=== PATIENT | female | born 1940 | race Caucasian/White ===

== ENCOUNTER → 2017-02-01 | Outpatient (CLI) | payer OTHER ==
[~2017-02-01] MED LIST: ATOR10TA82 PO; CLTP PO; DETROL; DIABETES MEDICINE; FOSAMAX; SYNTHROID
[2017-02-01 13:40] LABS: BLOOD UREA NITROGEN 24 mg/dl (7-18); BUN/CREATININE RATIO 29.5 (10-20); CALCIUM 9.4 mg/dl (8.5-10.1); CARBON DIOXIDE 28 mmol/L (21-32); CHLORIDE 105 mmol/L (98-107); CREATININE 0.82 mg/dl (0.60-1.20); GLUCOSE 93 mg/dl (70-99); POTASSIUM 4.2 mmol/L (3.5-5.1); SODIUM 142 mmol/L (136-145)
[2017-02-01 13:41] LABS: ESTIMATED AVERAGE GLUCOSE 126 mg/dl; HA1C FLAG Normal (Normal)
== END | disposition home or self-care (01) ==
LOC: C.LABPVFM 09:15
PROVIDERS: ATTEND Internal Medicine
DX: E78.5 Hyperlipidemia, unspecified (principal); E03.9 Hypothyroidism, unspecified; E11.9 Type 2 diabetes mellitus without complications

== ENCOUNTER → 2017-04-11 | Outpatient (CLI) | payer OTHER ==
--- NOTE | 2017-04-11 14:41 | MAMMOGRAPHY REPORT ---
BILATERAL DIGITAL SCREENING MAMMOGRAM WITH CAD: 04/11/2017 TECHNIQUE: Current study was also evaluated with a Computer Aided Detection (CAD) system. Bilateral CC and MLO views were obtained. COMPARISON: Comparison is made to exams dated: 04/10/2016 mammogram, 04/08/2015 mammogram, 04/07/2014 m ammogram, 04/06/2013 mammogram, 04/04/2012 mammogram, and 04/03/2011 mammogram - [facility]. BREAST COMPOSITION: There are scattered areas of fibroglandular density in both breasts. FINDINGS: No suspicious masses, calcifications, or areas of architectural distortion are noted in ei ther breast. There has been no significant interval change compared to prior exams. Scattered bilater al benign-appearing calcifications are not significantly changed. IMPRESSION: ACR BI-RADS CATEGORY 2: BENIGN There is no mammographic evidence of malignancy. A 1 year screening mammogram is recommended. The pa tient will receive written notification of the results. Approximately 10% of breast cancers are not detected with mammography. A negative mammographic report should not delay biopsy if a clinically suggestive mass is present. Alison Peralta M.D. /:04/11/2017 12:17:25 Hair Spinner: Katherine HANKS)(Fran), [facility] letter sent: Normal 1/2 BI-RADS Code: ACR BI-RADS Category 2: Benign
== END | disposition home or self-care (01) ==
LOC: C.MAMM 09:33
PROVIDERS: ATTEND Internal Medicine
DX: Z12.31 Encounter for screening mammogram for malignant neoplasm of breast (principal)

== ENCOUNTER → 2017-07-29 | Outpatient (CLI) | payer OTHER ==
[~2017-07-29] MED LIST changes: -ATOR10TA82 PO; +ATOR10TA88 PO
[2017-07-29 12:52] LABS: BLOOD UREA NITROGEN 19 mg/dl (7-18); BUN/CREATININE RATIO 24.2 (10-20); CALCIUM 9.2 mg/dl (8.5-10.1); CARBON DIOXIDE 30 mmol/L (21-32); CHLORIDE 103 mmol/L (98-107); CREATININE 0.79 mg/dl (0.60-1.20); GLUCOSE 97 mg/dl (70-99); POTASSIUM 4.2 mmol/L (3.5-5.1); SODIUM 140 mmol/L (136-145)
== END | disposition home or self-care (01) ==
LOC: C.LABPVFM 08:04
PROVIDERS: ATTEND Internal Medicine
DX: E03.9 Hypothyroidism, unspecified (principal); E11.9 Type 2 diabetes mellitus without complications; I10 Essential (primary) hypertension

== ENCOUNTER → 2017-08-08 | Outpatient (CLI) | payer OTHER ==
--- NOTE | 2017-08-08 09:04 | DIAGNOSTIC IMAGING REPORT ---
RIGHT KNEE 2 VIEWS HISTORY: Right knee pain. COMPARISON: None. FINDINGS: There is no fracture or dislocation. Soft tissues are unremarkable. No radiopaque foreign bodies. No knee effusion. Mild tricompartmental osteoarthritis demonstrated by cartilage space narrowing and small marginal osteophytes. IMPRESSION: No fractures. Mild tricompartmental osteoarthritis. Electronically signed by: Ibrahima Clements M.D. 08/08/2017 9:03 AM Dictated Date/Time: 08/08/2017 9:01 AM
== END | disposition home or self-care (01) ==
LOC: C.RAD1850 08:37
PROVIDERS: ATTEND Internal Medicine
DX: M17.11 Unilateral primary osteoarthritis, right knee (principal); M25.569 Pain in unspecified knee

== ENCOUNTER → 2018-01-28 | Outpatient (CLI) | payer OTHER ==
[~2018-01-28] MED LIST changes: +ATOR10TA82 PO; -ATOR10TA88 PO
[2018-01-28 13:42] LABS: ALT/SGPT 34 U/L (12-78); AST/SGOT 26 U/L (15-37); BLOOD UREA NITROGEN 25 mg/dl (7-18); CALCIUM 9.8 mg/dl (8.5-10.1); CARBON DIOXIDE 30 mmol/L (21-32); CREATININE 0.79 mg/dl (0.60-1.20); GLUCOSE 89 mg/dl (70-99); POTASSIUM 4.2 mmol/L (3.5-5.1); SODIUM 139 mmol/L (136-145)
[2018-01-28 13:52] LABS: CHOLESTEROL 153 mg/dl (0-200); LDL CHOLESTEROL CALCULATED 83 mg/dl
[2018-01-28 15:09] LABS: CREATININE RANDOM URINE 33.1 mg/dl
[2018-01-29 05:40] LABS: HEMOGLOBIN A1C 6.1 % (4.5-5.6)
== END | disposition home or self-care (01) ==
LOC: C.LABPVFM 07:36
PROVIDERS: ATTEND Internal Medicine
DX: E03.9 Hypothyroidism, unspecified (principal); E78.5 Hyperlipidemia, unspecified; E11.9 Type 2 diabetes mellitus without complications

== ENCOUNTER 2019-11-25 18:15 | Inpatient (IN) ==
--- NOTE | 2019-11-25 18:39 | Emergency Department Note ---
Entered by Brandie Rea acting as a scribe for History of Present Illness General Chief complaint: Shortness of Breath/Dyspnea Stated complaint: SOB,CHEST PAIN Time Seen by Provider: 11/25/19 18:19 Source: patient and family History of Present Illness Onset (ago): month(s) (few months) Location: chest Quality: + other (SOB) Exacerbated By: + movement Associated symptoms: + shortness of breath and + other (Positive dyspenia on exertion, leg heaviness) The patient is a 79 year old female who presents to the ED with complaints of SOB beginning a few months ago. She is accompanied by her son who states the patient has been checking her O2 levels with her 's machine and they have been low recently. Her son states simply getting up to answer the phone causes the patient to become dyspenic. Her son notes the patient has been complaining o f leg heaviness recently. The patient notes she has an intermittent cough. She follows with Dr. Rushing, Internal Medicine. Home Medications Home Medications Medication Instructions Recorded Confirmed Type aspirin [Aspir-81] 81 mg PO DAILY 12/22/18 11/26/19 History calcium carbonate-vitamin D3 1 tab PO BID 12/22/18 11/26/19 History [Caltrate 600 + D] metformin 500 mg PO BIDM 12/22/18 11/26/19 History omega 2-cwv-gqp-fish oil [Fish Oil] 3,000 mg PO DAILY 12/22/18 11/26/19 History omeprazole 20 mg PO DAILY 12/22/18 11/26/19 History ibuprofen 800 mg tablet 800 mg PO UD PRN tab 06/11/19 11/26/19 History levothyroxine 75 mcg tablet 75 mcg PO DAILY #90 tab 10/22/19 11/26/19 Rx Allergies Allergy/AdvReac Type Severity Reaction Status Date / Time adhesive Allergy Mild SKIN Verified 11/26/19 00:23 IRRITATION KINJAL Inhibitors Allergy Unknown LISTED ON Verified 11/26/19 00:23 MNPG Penicillins Allergy Unknown CAN'T Verified 11/26/19 00:23 REMEMBER Past Med/Surg History Medical History Aortic stenosis (Acute) Benign essential hypertension (Acute) Generalized osteoarthritis of multiple sites (Acute) Hyperlipidemia (Acute) Hypothyroidism (Acute) No pertinent past medical history 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 (Acute) Type 2 diabetes mellitus (Acute) Surgical History History of tubal ligation Family History Father Dementia Mother Lung cancer Grandmother Heart disease Other Family history non-contributory Social History Preferred Language: Uzbek Communication Ability: Effective Fiber Optic Technician Required: No Beliefs That Will Affect Care: None marital status: Current Living Situation: Spouse Current Living Situation Comment: house Other Information That Helps Us Care for You: No Feels Safe at Home: Yes Safety Concerns: Feels Safe At This Time Smoking Status: Never smoker Do You Dip or Chew Tobacco: No ; Second Hand Exposure: Yes ( smoked) ; Tobacco Cessation Education Requested by Patient: No Hx Alcohol Use: No Hx Substance Use: No Seatbelt Use: always Review of Systems See HPI for pertinent positives & negatives. and A total of 10 systems reviewed and were otherwise negative Physical Exam Vital Signs Vital Signs - 24 hr 11/25/19 18:24 11/25/19 18:26 11/25/19 18:28 Temperature 36.5 C Temperature Source Oral Pulse Rate 90 90 88 Pulse Rate [Apical] Pulse Rate from SpO2 Sensor 95 H 92 H Pulse Rhythm [Apical] Pulse Strength [Apical] Respiratory Rate 21 25 H Respiratory Effort / Characteristics Respiratory Depth Respiratory Pattern Blood Pressure 169/124 H 169/124 H Blood Pressure [Left Arm] Blood Pressure Mean 139 139 Blood Pressure Mean [Left Arm] Blood Pressure Position Lying Blood Pressure Position [Left Arm] Pulse Oximetry 92 75 L 94 Oxygen Delivery Method Room Air Oxygen Flow Rate Fraction of Inspired Oxygen Sepsis Recent Fever Within 48 Hours No Sepsis New/Unexplained Change in Mental Status No Sepsis Action Taken by Nursing No Action Required 11/25/19 18:30 11/25/19 18:40 11/25/19 18:50 Temperature Temperature Source Pulse Rate 95 H 103 H 93 H Pulse Rate [Apical] Pulse Rate from SpO2 Sensor 99 H 102 H 88 Pulse Rhythm [Apical] Pulse Strength [Apical] Respiratory Rate 24 15 24 Respiratory Effort / Characteristics Respiratory Depth Respiratory Pattern Blood Pressure Blood Pressure [Left Arm] Blood Pressure Mean Blood Pressure Mean [Left Arm] Blood Pressure Position Blood Pressure Position [Left Arm] Pulse Oximetry 96 98 98 Oxygen Delivery Method Nasal Cannula Oxygen Flow Rate 4 Fraction of Inspired Oxygen Sepsis Recent Fever Within 48 Hours Sepsis New/Unexplained Change in Mental Status Sepsis Action Taken by Nursing 11/25/19 19:00 11/25/19 19:10 11/25/19 19:13 Temperature Temperature Source Pulse Rate 92 H 75 93 H Pulse Rate [Apical] Pulse Rate from SpO2 Sensor 89 86 90 Pulse Rhythm [Apical] Pulse Strength [Apical] Respiratory Rate 17 15 21 Respiratory Effort / Characteristics Respiratory Depth Respiratory Pattern Blood Pressure 134/86 Blood Pressure [Left Arm] Blood Pressure Mean 111 Blood Pressure Mean [Left Arm] Blood Pressure Position Blood Pressure Position [Left Arm] Pulse Oximetry 98 97 97 Oxygen Delivery Method Oxygen Flow Rate Fraction of Inspired Oxygen Sepsis Recent Fever Within 48 Hours Sepsis New/Unexplained Change in Mental Status Sepsis Action Taken by Nursing 11/25/19 19:15 11/25/19 19:20 11/25/19 19:30 Temperature Temperature Source Pulse Rate Pulse Rate [Apical] 80 Pulse Rate from SpO2 Sensor 108 H Pulse Rhythm [Apical] Pulse Strength [Apical] Respiratory Rate 18 20 20 Respiratory Effort / Characteristics Respiratory Depth Respiratory Pattern Blood Pressure 148/65 H Blood Pressure [Left Arm] 134/86 Blood Pressure Mean 92 Blood Pressure Mean [Left Arm] 102 Blood Pressure Position Blood Pressure Position [Left Arm] Pulse Oximetry 97 97 Oxygen Delivery Method Nasal Cannula Oxygen Flow Rate 4 Fraction of Inspired Oxygen Sepsis Recent Fever Within 48 Hours Sepsis New/Unexplained Change in Mental Status Sepsis Action Taken by Nursing 11/25/19 19:40 11/25/19 19:50 11/25/19 20:00 Temperature Temperature Source Pulse Rate 89 Pulse Rate [Apical] Pulse Rate from SpO2 Sensor 90 89 Pulse Rhythm [Apical] Pulse Strength [Apical] Respiratory Rate 12 21 Respiratory Effort / Characteristics Respiratory Depth Respiratory Pattern Blood Pressure 137/83 Blood Pressure [Left Arm] Blood Pressure Mean 92 Blood Pressure Mean [Left Arm] Blood Pressure Position Blood Pressure Position [Left Arm] Pulse Oximetry 96 98 Oxygen Delivery Method Oxygen Flow Rate Fraction of Inspired Oxygen Sepsis Recent Fever Within 48 Hours Sepsis New/Unexplained Change in Mental Status Sepsis Action Taken by Nursing 11/25/19 20:10 11/25/19 20:20 11/25/19 20:30 Temperature Temperature Source Pulse Rate 85 98 H 87 Pulse Rate [Apical] Pulse Rate from SpO2 Sensor 85 94 H Pulse Rhythm [Apical] Pulse Strength [Apical] Respiratory Rate 19 26 H 21 Respiratory Effort / Characteristics Respiratory Depth Respiratory Pattern Blood Pressure 153/72 H Blood Pressure [Left Arm] Blood Pressure Mean 102 Blood Pressure Mean [Left Arm] Blood Pressure Position Blood Pressure Position [Left Arm] Pulse Oximetry 97 100 Oxygen Delivery Method Oxygen Flow Rate Fraction of Inspired Oxygen Sepsis Recent Fever Within 48 Hours Sepsis New/Unexplained Change in Mental Status Sepsis Action Taken by Nursing 11/25/19 20:40 11/25/19 20:50 11/25/19 21:24 Temperature Temperature Source Pulse Rate 99 H 83 Pulse Rate [Apical] 97 H Pulse Rate from SpO2 Sensor 99 H 88 Pulse Rhythm [Apical] Pulse Strength [Apical] Respiratory Rate 22 20 20 Respiratory Effort / Characteristics Respiratory Depth Respiratory Pattern Blood Pressure Blood Pressure [Left Arm] 153/74 H Blood Pressure Mean Blood Pressure Mean [Left Arm] 100 Blood Pressure Position Blood Pressure Position [Left Arm] Pulse Oximetry 99 97 97 Oxygen Delivery Method Nasal Cannula Oxygen Flow Rate 2 Fraction of Inspired Oxygen Sepsis Recent Fever Within 48 Hours Sepsis New/Unexplained Change in Mental Status Sepsis Action Taken by Nursing 11/25/19 22:19 11/25/19 22:30 11/25/19 23:47 Temperature Temperature Source Pulse Rate Pulse Rate [Apical] 86 86 86 Pulse Rate from SpO2 Sensor Pulse Rhythm [Apical] Regular Pulse Strength [Apical] Normal Respiratory Rate 18 24 Respiratory Effort / Characteristics Non-Labored Spontaneous Non-Labored Spontaneous Respiratory Depth Normal Respiratory Pattern Regular Blood Pressure Blood Pressure [Left Arm] 150/70 H 129/87 Blood Pressure Mean Blood Pressure Mean [Left Arm] 96 101 Blood Pressure Position Blood Pressure Position [Left Arm] Lying Pulse Oximetry 95 95 Oxygen Delivery Method Nasal Cannula Nasal Cannula Room Air Oxygen Flow Rate 3 4 Fraction of Inspired Oxygen 97 Sepsis Recent Fever Within 48 Hours Sepsis New/Unexplained Change in Mental Status Sepsis Action Taken by Nursing GENERAL: The patient is awake and alert. She is somewhat anxious appearing. EYES: The conjunctivae are clear. The pupils are round and reactive. EARS, NOSE, MOUTH AND THROAT: The nose is without any evidence of any deformity. Mucous membranes are moist. Tongue is midline. NECK: The neck is nontender and supple. RESPIRATORY: Diminished breath sounds are noted throughout. There are rales noted in all lung lang. Breathing is very shallow. CARDIOVASCULAR: Regular rate and rhythm was noted to auscultation. There was a systolic murmur noted. GASTROINTESTINAL: The abdomen is soft. Abdomen is nontender. MUSCULOSKELETAL/EXTREMITIES: There is no evidence of gross deformity full range of motion is noted in the hips and shoulders. SKIN: Trace pedal edema was noted bilaterally NEUROLOGIC: Patient is awake alert and oriented x3. Course Course 1824: Past medical records reviewed. The patient was evaluated in room B3. A complete history and physical exam was performed. [id number]: Discussed the patient's case with Dr. Connors, [facility] Hospitalist. The patient will be evaluated for further management. Administered Medications Aspirin (Ecotrin Ectab) 81 mg PO DAILY SAY Stop: 12/26/19 08:59 Last Admin: 11/26/19 07:33 Dose: 81 mg Documented by: [id number] Enoxaparin Sodium (Lovenox) 40 mg SQ Q24H SAY Stop: 12/26/19 08:59 Last Admin: 11/26/19 07:32 Dose: 40 mg Documented by: [id number] Furosemide 40 mg/ Syringe 4 mls @ 4 mls/min IV [id number] SAY Stop: 12/26/19 11:29 Last Admin: 11/26/19 16:56 Dose: 4 mls/min Documented by: [id number] Admin: 11/26/19 12:17 Dose: 4 mls/min Documented by: [id number] Insulin Aspart (Novolog Flexpen) 0 units SC ACHS SAY Stop: 12/26/19 07:29 Last Admin: 11/26/19 16:55 Dose: Not Given Documented by: [id number] Admin: 11/26/19 12:13 Dose: Not Given Documented by: [id number] Cosigned by: [id number] Admin: 11/26/19 07:53 Dose: Not Given Documented by: [id number] Cosigned by: [id number] Levothyroxine Sodium (Synthroid) 75 mcg PO DAILYBB SAY Stop: 12/26/19 06:29 Last Admin: 11/26/19 07:33 Dose: 75 mcg Documented by: [id number] Miscellaneous (Order Awaiting Action) 1 ea N/A QS SAY Stop: 12/26/19 07:59 Last Admin: 11/26/19 16:08 Dose: Not Given Documented by: [id number] Admin: 11/26/19 07:33 Dose: Not Given Documented by: [id number] Multivitamins/Minerals (Caltrate Plus) 1 tab PO BID SAY Stop: 12/26/19 08:59 Last Admin: 11/26/19 07:33 Dose: 1 tab Documented by: [id number] Pantoprazole Sodium (Protonix) 40 mg PO DAILY SAY Stop: 12/26/19 08:59 Last Admin: 11/26/19 07:33 Dose: 40 mg Documented by: [id number] Pravastatin Sodium (Pravachol) 20 mg PO DAILY SAY Stop: 12/26/19 08:59 Last Admin: 11/26/19 07:33 Dose: 20 mg Documented by: [id number] Discontinued Medications Acetaminophen (Tylenol) 1,000 mg PO NOW STA Stop: 11/25/19 23:51 Last Admin: 11/25/19 23:58 Dose: 1,000 mg Documented by: [id number] Albuterol (Duoneb) 3 ml NEB NOW STA Stop: 11/25/19 22:00 Last Admin: 11/25/19 22:18 Dose: 3 ml Documented by: [id number] Furosemide (Lasix) 40 mg IV NOW STA Stop: 11/25/19 22:00 Last Admin: 11/25/19 22:15 Dose: 40 mg Documented by: [id number] Ioversol (Optiray 320 125ml) 116 ml IV ONCE PRN PRN Reason: Interaction Checking Stop: 11/29/19 21:11 Last Admin: 11/25/19 21:13 Dose: 116 ml Documented by: [id number] Medical Decision Making Differential Diagnosis Differential diagnosis: Etiologies such as infections, reactive airway disease, pneumonia, pneumothorax, COPD, CHF, cardiac ischemia, pulmonary embolism, musculoskeletal, gastrointestinal, as well as others were entertained. Medical Records Attestation: I reviewed the patient's medical records. Home Medications Current Medication List: was personally reviewed by me Laboratory Data Attestation: I reviewed the patient's lab results. Result diagrams: 11/26/19 01:49 11/26/19 01:49 Lab Results 11/25/19 11/25/19 11/25/19 Range/Units 18:42 18:42 18:42 WBC 9.56 (4.8-10.8) K/uL RBC 4.15 L (4.2-5.4) M/uL Hgb 12.1 (12.0-16.0) g/dL Hct 40.1 (37-47) % MCV 96.6 (80-100) fL MCH 29.2 (25-34) pg MCHC 30.2 L (32-36) g/dL RDW Std Deviation 55.0 H (36.4-46.3) fL RDW Coeff of [place] 15.6 H (11.5-14.5) % Plt Count 383 (130-400) K/uL MPV 9.1 (7.4-10.4) fL Immature Gran % (Auto) 0.3 % Neut % (Auto) 65.8 % Lymph % (Auto) 19.9 % [place] % (Auto) 8.6 % Eos % (Auto) 5.0 % Baso % (Auto) 0.4 % Immature Gran # (Auto) 0.03 H (0.00-0.02) K/uL Neut # (Auto) 6.29 (1.4-6.5) K/uL Lymph # (Auto) 1.90 (1.2-3.4) K/uL [place] # (Auto) 0.82 H (0.11-0.59) K/uL Eos # (Auto) 0.48 (0-0.5) K/uL Baso # (Auto) 0.04 (0-0.2) K/uL PT 10.8 (9.0-12.0) Seconds INR 1.1 (0.9-1.1) APTT 25.8 (21.0-31.0) Seconds PTT Ratio 1.0 VBG pH (7.36-7.41) VBG pCO2 (38-50) mmHg VBG pO2 mmHg VBG HCO3 mmol/L VBG O2 Saturation % VBG Base Excess mEq/L Barometric Pressure mm/Hg Sodium 139 (136-145) mmol/L Potassium 4.1 (3.5-5.1) mmol/L Chloride 103 (98-107) mmol/L Carbon Dioxide 31 (21-32) mmol/L Anion Gap 5.0 (3-11) BUN 26 H (7-18) mg/dl Creatinine 1.01 (0.6-1.2) mg/dl Est Cr Clr Drug Dosing 42.2 ml/min Est GFR ( Amer) 61.3 Est GFR (Non-Af Amer) 52.9 BUN/Creatinine Ratio 26.2 H (10-20) Glucose 100 H (70-99) mg/dl Calcium 9.1 (8.5-10.1) mg/dl Magnesium 2.2 (1.8-2.4) mg/dl Total Bilirubin 0.4 (0.2-1) mg/dl AST 19 (15-37) U/L ALT 31 (12-78) U/L Alkaline Phosphatase 58 (45-117) U/L Troponin I 0.015 (0-0.045) ng/ml NT-Pro-B Natriuret Pep 2131 H (0-1800) pg/ml Total Protein 7.0 (6.4-8.2) gm/dl Albumin 3.5 (3.4-5.0) gm/dl Globulin 3.5 (2.5-4.0) gm/dl Albumin/Globulin Ratio 1.0 (0.9-2) Urine Color Urine Appearance (Clear) Urine pH (4.5-7.5) Ur Specific [place] (1.000-1.030) Urine Protein (Negative) Urine Glucose (UA) (Negative) Urine Ketones (Negative) Urine Blood (Negative) Urine Nitrite (Negative) Urine Bilirubin (Negative) Urine Urobilinogen (Negative) Ur Leukocyte Esterase (Negative) Urine WBC (Auto) (0-5) /hpf Urine RBC (Auto) (0-4) /hpf U Hyaline Cast (Auto) (0-5) /lpf U Epithel Cells (Auto) (0-5) /lpf Urine Bacteria (Auto) (Negative) 11/25/19 11/25/19 Range/Units 18:42 19:35 WBC (4.8-10.8) K/uL RBC (4.2-5.4) M/uL Hgb (12.0-16.0) g/dL Hct (37-47) % MCV (80-100) fL MCH (25-34) pg MCHC (32-36) g/dL RDW Std Deviation (36.4-46.3) fL RDW Coeff of [place] (11.5-14.5) % Plt Count (130-400) K/uL MPV (7.4-10.4) fL Immature Gran % (Auto) % Neut % (Auto) % Lymph % (Auto) % [place] % (Auto) % Eos % (Auto) % Baso % (Auto) % Immature Gran # (Auto) (0.00-0.02) K/uL Neut # (Auto) (1.4-6.5) K/uL Lymph # (Auto) (1.2-3.4) K/uL [place] # (Auto) (0.11-0.59) K/uL Eos # (Auto) (0-0.5) K/uL Baso # (Auto) (0-0.2) K/uL PT (9.0-12.0) Seconds INR (0.9-1.1) APTT (21.0-31.0) Seconds PTT Ratio VBG pH 7.35 L (7.36-7.41) VBG pCO2 60 H (38-50) mmHg VBG pO2 51 mmHg VBG HCO3 32 mmol/L VBG O2 Saturation 81.8 % VBG Base Excess 5.3 mEq/L Barometric Pressure 735.0 mm/Hg Sodium (136-145) mmol/L Potassium (3.5-5.1) mmol/L Chloride (98-107) mmol/L Carbon Dioxide (21-32) mmol/L Anion Gap (3-11) BUN (7-18) mg/dl Creatinine (0.6-1.2) mg/dl Est Cr Clr Drug Dosing ml/min Est GFR ( Amer) Est GFR (Non-Af Amer) BUN/Creatinine Ratio (10-20) Glucose (70-99) mg/dl Calcium (8.5-10.1) mg/dl Magnesium (1.8-2.4) mg/dl Total Bilirubin (0.2-1) mg/dl AST (15-37) U/L ALT (12-78) U/L Alkaline Phosphatase (45-117) U/L Troponin I (0-0.045) ng/ml NT-Pro-B Natriuret Pep (0-1800) pg/ml Total Protein (6.4-8.2) gm/dl Albumin (3.4-5.0) gm/dl Globulin (2.5-4.0) gm/dl Albumin/Globulin Ratio (0.9-2) Urine Color Yellow Urine Appearance Clear (Clear) Urine pH 6.0 (4.5-7.5) Ur Specific [place] 1.009 (1.000-1.030) Urine Protein Negative (Negative) Urine Glucose (UA) Negative (Negative) Urine Ketones Negative (Negative) Urine Blood Negative (Negative) Urine Nitrite Negative (Negative) Urine Bilirubin Negative (Negative) Urine Urobilinogen Negative (Negative) Ur Leukocyte Esterase 1+ H (Negative) Urine WBC (Auto) 1-5 (0-5) /hpf Urine RBC (Auto) 0-4 (0-4) /hpf U Hyaline Cast (Auto) 1-5 (0-5) /lpf U Epithel Cells (Auto) >30 H (0-5) /lpf Urine Bacteria (Auto) Negative (Negative) Imaging Data Radiologist's Impression: Radiology results as stated below per my review and the radiologist's interpretation: CHEST CTA for PULMONARY ARTERIES CT DOSE: 499.24 mGycm HISTORY: Dyspnea. TECHNIQUE: Multiaxial CT images of the chest were performed following the intravenous administration of contrast to evaluate the pulmonary arteries. Maximal intensity projection images were also obtained. A dose lowering technique was utilized adhering to the principles of ALARA. COMPARISON STUDY: None. FINDINGS: The heart is borderline enlarged. No pleural or pericardial effusions. Normal caliber thoracic aorta with no evidence for dissection. No filling defects within the pulmonary arteries to suggest pulmonary embolus. Punctate calcified granuloma within the right hepatic lobe. The visualized spleen is unremarkable. Normal esophagus. No suspicious lytic or blastic osseous lesions. No pneumothorax. The central airways are patent. Mild interlobular septal thickening within the right upper lobe. This suggests mild asymmetric congestive change. There is a mosaic attenuation seen throughout the lungs consistent with air trapping. This can be seen in the setting of small airways disease. A few linear densities at the lung bases consistent with subsegmental atelectasis. Mild mediastinal and bilateral hilar lymphadenopathy. Dominant right paratracheal lymph node measures 1.6 x 1.0 cm. IMPRESSION: 1. No evidence for pulmonary embolus. 2. Mild interlobular septal thickening within the right upper lobe. This suggests mild asymmetric congestive change. 3. Mild mediastinal and bilateral hilar lymphadenopathy. This is nonspecific. 4. Mosaic attenuation seen throughout the lungs consistent with air trapping. This can be seen in the setting of small airways disease. 5. The heart is borderline enlarged. ACT 112: Negative or not required by law. Electronically signed by: Ibrahima Clements M.D. 11/25/2019 9:48 PM XR chest 1V portable HISTORY: Dyspnea COMPARISON: Chest 09/14/2019. FINDINGS: No pneumothorax. No pleural effusions. The heart remains mildly enlarged. There is diffuse interstitial vascular thickening consistent with mild congestive change. This is similar to the prior study. No new focal lung consolidations to suggest pneumonia. Calcifications within the aortic knob. IMPRESSION: Cardiomegaly with mild congestive change. ACT 112: Negative or not required by law. Electronically signed by: Ibrahima Clements M.D. 11/25/2019 7:50 PM ECG Data Attestation: I personally reviewed and interpreted this ECG as follows: Indication: + SOB/dyspnea Rate (beats per minute): 93 Rhythm: + sinus rhythm ECG ST segments: + ST depression (Lateral) ECG Findings: + Q waves (Inferior) and + PVCs (frequent) Comparison ECG Date: from (06/20/01) Change: the following changes noted (Changes are new) Blood Pressure Blood Pressure Findings: Elevated blood pressure Blood Pressure Disposition: further management by hospitalist MDM Narrative The patient is a 79-year-old female who presented to the emergency department for an evaluation of difficulty breathing. The patient was found to have significant dyspnea on exertion as well as hypoxia. Initially her physical exam appear to be consistent with some volume overload but her chest x-ray was not as impressive as her physical exam. For this reason CT the chest was obtained to rule out pulmonary venous thromboembolic disease. The patient was treated with Lasix in the emergency department. I discussed the patient's laboratory and radiographic studies with her and her family members. She was feeling somewhat improved but still had an oxygen requirement. For this reason I discussed her case with the on-call [facility] hospitalist group. They have agreed to evaluate the patient in the emergency department for further management and disposition. Impression & Plan Pulmonary edema, SOB (shortness of breath), Hypoxia, Respiratory acidosis Discharge Plan Visit Data *Final* Discharge Date/Time: 11/26/19 00:52 Chief Complaint: Shortness of Breath/Dyspnea Stated Complaint: SOB,CHEST PAIN ED Provider: Pasha Romano Discharge Problem: Pulmonary edema, SOB (shortness of breath), Hypoxia, Respiratory acidosis Patient Disposition: Admitted As Inpatient Discharge Instructions Interventions: ED Discharge Assessment Last Done: 11/26/19 00:52 Discharge Problem: Pulmonary edema Qualifiers: Chronicity: acute Qualified Code(s): J81.0 - Acute pulmonary edema The scribe's documentation has been prepared under my direction and personally reviewed by me in its entirety. I confirm that the note above accurately reflects all work, treatment, procedures, and medical decision making performed by me.
[2019-11-25 18:55] LABS: Basophils # (auto) 0.04 K/uL (0-0.2); Basophils % (auto) 0.4 %; Eosinophils # (auto) 0.48 K/uL (0-0.5); Hematocrit (blood only) 40.1 % (37-47); Hemoglobin 12.1 g/dL (12.0-16.0); Immature Granulocytes # (auto) 0.03 K/uL (0.00-0.02); Immature Granulocytes % (auto) 0.3 %; Lymphocytes % (auto) 19.9 %; Mean Corpuscular Hemoglobin 29.2 pg (25-34); Mean Corpuscular Hgb Conc 30.2 g/dL (32-36); Mean Corpuscular Volume 96.6 fL (80-100); Mean Platelet Volume 9.1 fL (7.4-10.4); Monocytes # (auto) 0.82 K/uL (0.11-0.59); Monocytes % (auto) 8.6 %; Neutrophils # (auto) 6.29 K/uL (1.4-6.5); Neutrophils % (auto) 65.8 %; Platelet Count 383 K/uL (130-400); RDW Coefficient of Variation 15.6 % (11.5-14.5); Red Blood Count 4.15 M/uL (4.2-5.4); White Blood Count 9.56 K/uL (4.8-10.8)
[2019-11-25 18:59] LABS: Base Excess VBG 5.3 mEq/L; Oxygen Saturation VBG 81.8 %; pH VBG 7.35 (7.36-7.41)
[2019-11-25 19:04] LABS: INR 1.1 (0.9-1.1); Partial Thromboplastin Time 25.8 Seconds (21.0-31.0); Prothrombin Time 10.8 Seconds (9.0-12.0)
[2019-11-25 19:12] LABS: Albumin Level 3.5 gm/dl (3.4-5.0); BUN Creatinine Ratio 26.2 (10-20); Calcium 9.1 mg/dl (8.5-10.1); Creatinine Clr Calc Pharmacy 42.2 ml/min; Est GFR (African American) 61.3; Est GFR (Non-African American) 52.9; Magnesium 2.2 mg/dl (1.8-2.4); Potassium 4.1 mmol/L (3.5-5.1)
[2019-11-25 19:17] LABS: Bilirubin,Total 0.4 mg/dl (0.2-1); Globulin 3.5 gm/dl (2.5-4.0); Troponin I 0.015 ng/ml (0-0.045)
--- NOTE | 2019-11-25 19:51 | XRay Report ---
XR chest 1V portable HISTORY: Dyspnea COMPARISON: Chest 09/14/2019. FINDINGS: No pneumothorax. No pleural effusions. The heart remains mildly enlarged. There is diffuse interstitial vascular thickening consistent with mild congestive change. This is similar to the prior study. No new focal lung consolidations to suggest pneumonia. Calcifications within the aortic knob. IMPRESSION: Cardiomegaly with mild congestive change. ACT 112: Negative or not required by law. Electronically signed by: Ibrahima Clements M.D. 11/25/2019 7:50 PM
[2019-11-25 20:04] LABS: Appearance Urine Clear (Clear); Bacteria Urine Automated Negative (Negative); Bilirubin Urine Negative (Negative); Blood Urine Negative (Negative); Color Urine Yellow; Epithelial Cell Urine Auto >30 /lpf (0-5); Glucose Urine UA Negative (Negative); Ketones Urine Negative (Negative); Leukocyte Esterase Urine 1+ (Negative); Nitrite Urine Negative (Negative); Protein Urine Negative (Negative); RBC Urine Automated 0-4 /hpf (0-4); Specific Gravity Urine 1.009 (1.000-1.030); Urobilinogen Urine Negative (Negative)
[2019-11-25] MEDS ORDERED: OPTIRAY 320 125ml IV PRN (21:12)
--- NOTE | 2019-11-25 21:50 | CT Scan Report ---
CHEST CTA for PULMONARY ARTERIES CT DOSE: 499.24 mGycm HISTORY: Dyspnea. TECHNIQUE: Multiaxial CT images of the chest were performed following the intravenous administration of contrast to evaluate the pulmonary arteries. Maximal intensity projection images were also obtaine d. A dose lowering technique was utilized adhering to the principles of ALARA. COMPARISON STUDY: None. FINDINGS: The heart is borderline enlarged. No pleural or pericardial effusions. Normal caliber thora cic aorta with no evidence for dissection. No filling defects within the pulmonary arteries to sugges t pulmonary embolus. Punctate calcified granuloma within the right hepatic lobe. The visualized splee n is unremarkable. Normal esophagus. No suspicious lytic or blastic osseous lesions. No pneumothorax. The central airways are patent. Mild interlobular septal thickening within the right upper lobe. Thi s suggests mild asymmetric congestive change. There is a mosaic attenuation seen throughout the lungs consistent with air trapping. This can be seen in the setting of small airways disease. A few linear densities at the lung bases consistent with subsegmental atelectasis. Mild mediastinal and bilateral hilar lymphadenopathy. Dominant right paratracheal lymph node measures 1.6 x 1.0 cm. IMPRESSION: 1. No evidence for pulmonary embolus. 2. Mild interlobular septal thickening within the right upper lobe. This suggests mild asymmetric con gestive change. 3. Mild mediastinal and bilateral hilar lymphadenopathy. This is nonspecific. 4. Mosaic attenuation seen throughout the lungs consistent with air trapping. This can be seen in the setting of small airways disease. 5. The heart is borderline enlarged. ACT 112: Negative or not required by law. Electronically signed by: Ibrahima Clements M.D. 11/25/2019 9:48 PM
[2019-11-25] MEDS ORDERED: FUROSEMIDE 40 MG/4 ML VIAL IV STA (21:59)
[2019-11-25] MEDS ORDERED: ALBUT/IPRATROP 3MG/0.5MG NEB 3 ML VIAL NEB STA (21:59)
[2019-11-25] MEDS ORDERED: ACETAMINOPHEN 500 MG TAB PO STA (23:50)
--- NOTE | 2019-11-25 23:54 | History & Physical Report ---
Date of Service November 25, 2019 Assessment & Plan (1) Hypoxia: Shakira Delgado is a pleasant 79 y/o female with past medical hx of mod-severe aortic stenosis, HLD, HTN, DM2, Hypothryoid, GERD who presented from her PCP appointment for Hypoxia with values at 85%, also having central chest pressure with exertion and dyspnea worsened with exertion. - Suspect related to severe aortic stenosis and a diet over recommended daily value of sodium; fixed cardiac output causing worsening of symptoms with exertion - Improved with supplemental O2 and with Lasix 40mg IV x1 in ED - Monitor I&O - No indication for further need for Lasix overnight, will most likely benefit from dosage tomorrow - Weight appears up from baseline about 4kg this past month - CXR showing cardiomegaly and Mild congestive change; CTA negative for PE - Follows with Dr. Pollard Cards [facility]; consult placed to group - Echo performed on 08/08/2019: 1. Normal LV size, mod concentric LVH; 2. LVEF 60-65%, no regional wall montion abnormalities; Grade I diasotlic dysfunction; 3. Normal RV size/funtion. 4. Moderate to severe aortic stenosis (PV 4.1, MG 37, CHELA 0.98, DI 0.38). 5. Mild aortic regurg. 6. Compared with prior 11/13/2017 slight progression in aortic stenosis - Echo ordered for AM - Trend trops - cardiac monitor technician - monitor vitals Code: Full Code FENGI: Heart healthy, Low Sodium, DM2 diet DVT ppx: Lovenox 40mg Subq q24 Admit: Med surg tele (2) SOB (shortness of breath): as above (3) Aortic stenosis: as above (4) Benign essential hypertension: Continue with home Candesartan 16mg PO daily (5) Hyperlipidemia: continue with home Pravastatin 20mg qday (6) Hypothyroidism: continue with home synthroid 75 mcg PO daily (7) Osteopenia: continue with home vitamin D (8) Type 2 diabetes mellitus: Hold metformin since received contrast from CTA Will order Novolog SS (9) DVT prophylaxis: Lovenox 40mg subq 24h History of Present Illness Chief Complaint: Hypoxia Primary Care Provider: Pasha Rushing MD Shakira Delgado is a pleasant 79 y/o female with past medical hx of mod-severe aortic stenosis, HLD, HTN, DM2, Hypothryoid, GERD who presented from her PCP appointment for Hypoxia. She notes several months of worsening dyspnea that is worsened with exertion. She notes getting dyspneic with walking to get mail or even going from her kitchen to her living room. She sleeps on one pillow, doesn't monitor salt intake but notes she doesn't add salt to meals, denies LE edema or increase in abdomen size, but notes maybe some increase in weight gain. She states that she gets central chest pressure only with exertion for the past couple months as well. Here in the ED she had a CXR that showed pulmonary congestion and had a CTA which ruled out PE. She did receive Lasix 40mg IV x1 here in ED and notes feeling better now; family notes her facial color has improved to baseline. She is currently on 3L NC and doesn't require any supplemental O2 at baseline. She notes that she also has a frontal headache and thought she had sinusitis. She was treated for sinusitis beginning of this month with abx and steroids which didn't seem to help significantly with her frontal headache again thought to be sinusitis. Family notes 14 years ago having an episode of CHF after the [place], but patient cannot recall. She also notes that her legs have felt heavy for the past several months, but again no increase in swelling. She also notes some LE distal tingling as well. Shakira did not get the annual influenza vaccine this year. Allergies Allergy/AdvReac Type Severity Reaction Status Date / Time adhesive Allergy Mild SKIN Verified 11/26/19 00:23 IRRITATION KINJAL Inhibitors Allergy Unknown LISTED ON Verified 11/26/19 00:23 MNPG Penicillins Allergy Unknown CAN'T Verified 11/26/19 00:23 REMEMBER Home Medications Home Medications Medication Instructions Recorded Confirmed Type aspirin [Aspir-81] 81 mg PO DAILY 12/22/18 11/26/19 History calcium carbonate-vitamin D3 1 tab PO BID 12/22/18 11/26/19 History [Caltrate 600 + D] metformin 500 mg PO BIDM 12/22/18 11/26/19 History omega 1-wfa-drv-fish oil [Fish Oil] 3,000 mg PO DAILY 12/22/18 11/26/19 History omeprazole 20 mg PO DAILY 12/22/18 11/26/19 History ibuprofen 800 mg tablet 800 mg PO UD PRN tab 06/11/19 11/26/19 History levothyroxine 75 mcg tablet 75 mcg PO DAILY #90 tab 10/22/19 11/26/19 Rx Past Med/Surg History Medical History Aortic stenosis (Acute) Benign essential hypertension (Acute) Generalized osteoarthritis of multiple sites (Acute) Hyperlipidemia (Acute) Hypothyroidism (Acute) No pertinent past medical history 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 (Acute) Type 2 diabetes mellitus (Acute) Surgical History History of tubal ligation Family History Father Dementia Mother Lung cancer Grandmother Heart disease Other Family history non-contributory Social History marital status: Current Living Situation: Spouse Feels Safe at Home: Yes Smoking Status: Never smoker Second Hand Exposure: No ; Hx Alcohol Use: No Seatbelt Use: always Review of Systems Review of Systems: All systems reviewed & are unremarkable except as noted in HPI & below Constitutional: no fever and no chills Eyes: no diplopia and no worsening vision Ear, Nose, Mouth, Throat: + sinus pain/pressure (frontal); no sore throat Respiratory: + dyspnea and + dyspnea on exertion Cardiovascular: + chest pain and + dyspnea on exertion; no edema Gastrointestinal: no abdominal pain, no nausea, no vomiting and no change in bowel habits Genitourinary: no dysuria and no difficulty urinating Neurologic: as per Subjective / HPI and + tingling; no confusion Physical Exam Constitutional: WD/WN, vitals as above + obese, cooperative and comfortable sitting up on side of exam bed Eyes: PERRL, conjunctivae normal, anicteric sclerae ENMT: external ear and nose normal, oropharynx normal Neck: normal visual inspection and trachea midline Respiratory: normal respiratory effort; no respiratory distress Auscultation: + crackles (posterior bases bilaterally) and + wheezes (left posterior base expiratory ) Cardiovascular: Rate/Rhythm: regular rate and regular rhythm Heart Sounds: + murmur (3/6 systolic ejection best heard at right 2nd IC; S1 closure closer to S2) Extremities: no edema Gastrointestinal (Abdomen): Inspection/Auscultation: normal bowel sounds Percussion/Palpation: abdomen soft; abdomen nontender, no guarding and abdomen not rigid Musculoskeletal: Head/Neck/Chest: normocephalic and head atraumatic Skin: no rashes, warm and dry Neurologic: moves all extremities and awake Psychiatric: A+Ox3, euthymic affect Results & Data Vital Signs (Past 12 Hours) Vital Signs Temp Pulse Pulse Resp BP BP Pulse Ox 11/25/19 22:30 86 18 150/70 H 95 11/25/19 22:19 86 11/25/19 21:24 97 H 20 153/74 H 97 11/25/19 20:50 83 20 97 11/25/19 20:40 99 H 22 99 11/25/19 20:30 87 21 153/72 H 100 11/25/19 20:20 98 H 26 H 11/25/19 20:10 85 19 97 11/25/19 20:00 89 21 137/83 98 11/25/19 19:50 12 11/25/19 19:40 96 11/25/19 19:30 20 148/65 H 97 11/25/19 19:20 20 11/25/19 19:15 80 18 134/86 97 11/25/19 19:13 93 H 21 134/86 97 11/25/19 19:10 75 15 97 11/25/19 19:00 92 H 17 98 11/25/19 18:50 93 H 24 98 11/25/19 18:40 103 H 15 98 11/25/19 18:30 95 H 24 96 11/25/19 18:28 88 94 11/25/19 18:26 36.5 C 90 25 H 169/124 H 75 L 11/25/19 18:24 90 21 169/124 H 92 Laboratory Results Laboratory Results - last 24 hr 11/25/19 11/25/19 11/25/19 18:42 18:42 18:42 WBC 9.56 RBC 4.15 L Hgb 12.1 Hct 40.1 MCV 96.6 MCH 29.2 MCHC 30.2 L RDW Std Deviation 55.0 H RDW Coeff of Julieta 15.6 H Plt Count 383 MPV 9.1 Immature Gran % (Auto) 0.3 Neut % (Auto) 65.8 Lymph % (Auto) 19.9 [place] % (Auto) 8.6 Eos % (Auto) 5.0 Baso % (Auto) 0.4 Immature Gran # (Auto) 0.03 H Neut # (Auto) 6.29 Lymph # (Auto) 1.90 [place] # (Auto) 0.82 H Eos # (Auto) 0.48 Baso # (Auto) 0.04 PT 10.8 INR 1.1 APTT 25.8 PTT Ratio 1.0 VBG pH VBG pCO2 VBG pO2 VBG HCO3 VBG O2 Saturation VBG Base Excess Barometric Pressure Sodium 139 Potassium 4.1 Chloride 103 Carbon Dioxide 31 Anion Gap 5.0 BUN 26 H Creatinine 1.01 Est Cr Clr Drug Dosing 42.2 Est GFR ( Amer) 61.3 Est GFR (Non-Af Amer) 52.9 BUN/Creatinine Ratio 26.2 H Glucose 100 H Calcium 9.1 Magnesium 2.2 Total Bilirubin 0.4 AST 19 ALT 31 Alkaline Phosphatase 58 Troponin I 0.015 NT-Pro-B Natriuret Pep 2131 H Total Protein 7.0 Albumin 3.5 Globulin 3.5 Albumin/Globulin Ratio 1.0 Urine Color Urine Appearance Urine pH Ur Specific Lissie Urine Protein Urine Glucose (UA) Urine Ketones Urine Blood Urine Nitrite Urine Bilirubin Urine Urobilinogen Ur Leukocyte Esterase Urine WBC (Auto) Urine RBC (Auto) U Hyaline Cast (Auto) U Epithel Cells (Auto) Urine Bacteria (Auto) 11/25/19 11/25/19 18:42 19:35 WBC RBC Hgb Hct MCV MCH MCHC RDW Std Deviation RDW Coeff of Juli[place] Plt Count MPV Immature Gran % (Auto) Neut % (Auto) Lymph % (Auto) [place] % (Auto) Eos % (Auto) Baso % (Auto) Immature Gran # (Auto) Neut # (Auto) Lymph # (Auto) [place] # (Auto) Eos # (Auto) Baso # (Auto) PT INR APTT PTT Ratio VBG pH 7.35 L VBG pCO2 60 H VBG pO2 51 VBG HCO3 32 VBG O2 Saturation 81.8 VBG Base Excess 5.3 Barometric Pressure 735.0 Sodium Potassium Chloride Carbon Dioxide Anion Gap BUN Creatinine Est Cr Clr Drug Dosing Est GFR ( Amer) Est GFR (Non-Af Amer) BUN/Creatinine Ratio Glucose Calcium Magnesium Total Bilirubin AST ALT Alkaline Phosphatase Troponin I NT-Pro-B Natriuret Pep Total Protein Albumin Globulin Albumin/Globulin Ratio Urine Color Yellow Urine Appearance Clear Urine pH 6.0 Ur Specific Lissie 1.009 Urine Protein Negative Urine Glucose (UA) Negative Urine Ketones Negative Urine Blood Negative Urine Nitrite Negative Urine Bilirubin Negative Urine Urobilinogen Negative Ur Leukocyte Esterase 1+ H Urine WBC (Auto) 1-5 Urine RBC (Auto) 0-4 U Hyaline Cast (Auto) 1-5 U Epithel Cells (Auto) >30 H Urine Bacteria (Auto) Negative Medications Administered Ioversol (Optiray 320 125ml) 116 ml IV ONCE PRN PRN Reason: Interaction Checking Stop: 11/29/19 21:11 Last Admin: 11/25/19 21:13 Dose: 116 ml Documented by: [id number] Supervising Physician Co-Signing Physician Notes Patient was seen and examined by me personally. I reviewed the chart, the orders and discussed the case in detail with Dr. Herbert Rousseau DO . I read this H&P and agree with its contents to entirety. Resident Activity Tracking Resident Involvement: Resident Care Provided Care Provided: Adult Hospital Medicine
[2019-11-26] MEDS ORDERED: GLUCOSE 40% GEL 15 GM TUBE PO PRN (01:19)
[2019-11-26] MEDS ORDERED: ALUMINUM/MAGNESIUM SUSP 30 ML UDC PO PRN (01:19)
[2019-11-26] MEDS ORDERED: POLYETHYLENE (MIRALAX) 17 GM PACK PO PRN (01:19)
[2019-11-26] MEDS ORDERED: GLUCOSE 10 TABS/TUBE PO PRN (01:19)
[2019-11-26] MEDS ORDERED: MAGNESIUM HYDROXIDE SUSP 30 ML UDC PO PRN (01:19)
[2019-11-26] MEDS ORDERED: ONDANSETRON INJ 2 MG/ML 2 ML VIAL IV PRN (01:19)
[2019-11-26] MEDS ORDERED: CARBOHYDRATES FOR HYPOGLYCEMIA PO PRN (01:19)
[2019-11-26] MEDS ORDERED: NITROGLYCERIN SL 0.4 MG/TAB TAB SL PRN (01:19)
[2019-11-26] MEDS ORDERED: GLUCAGON FOR INJ 1 MG VIAL SQ PRN (01:19)
[2019-11-26] MEDS ORDERED: MECLIZINE HCL 25 MG TAB PO PRN (01:19)
[2019-11-26] MEDS ORDERED: DEXTROSE 50% 50 ML SYRINGE IV PRN (01:19)
[2019-11-26 02:55] LABS: Basophils # (auto) 0.04 K/uL (0-0.2); Basophils % (auto) 0.5 %; Eosinophils # (auto) 0.45 K/uL (0-0.5); Eosinophils % (auto) 5.2 %; Hematocrit (blood only) 39.3 % (37-47); Hemoglobin 11.9 g/dL (12.0-16.0); Immature Granulocytes # (auto) 0.01 K/uL (0.00-0.02); Immature Granulocytes % (auto) 0.1 %; Lymphocytes # (auto) 1.71 K/uL (1.2-3.4); Lymphocytes % (auto) 19.6 %; Mean Corpuscular Hemoglobin 29.5 pg (25-34); Mean Corpuscular Hgb Conc 30.3 g/dL (32-36); Mean Corpuscular Volume 97.3 fL (80-100); Mean Platelet Volume 9.3 fL (7.4-10.4); Monocytes # (auto) 0.73 K/uL (0.11-0.59); Monocytes % (auto) 8.4 %; Neutrophils # (auto) 5.78 K/uL (1.4-6.5); Neutrophils % (auto) 66.2 %; Platelet Count 388 K/uL (130-400); RDW Coefficient of Variation 15.7 % (11.5-14.5); RDW Standard Deviation 55.7 fL (36.4-46.3); Red Blood Count 4.04 M/uL (4.2-5.4); White Blood Count 8.72 K/uL (4.8-10.8)
[2019-11-26 03:05] LABS: Albumin Level 3.4 gm/dl (3.4-5.0); BUN Creatinine Ratio 22.3 (10-20); Creatinine Clr Calc Pharmacy 39.9 ml/min; Est GFR (African American) 57.2; Est GFR (Non-African American) 49.3; Potassium 4.1 mmol/L (3.5-5.1)
[2019-11-26 03:10] LABS: Bilirubin,Total 0.4 mg/dl (0.2-1); Globulin 3.4 gm/dl (2.5-4.0); Total Protein 6.8 gm/dl (6.4-8.2); Troponin I 0.02 ng/ml (0-0.045)
--- NOTE | 2019-11-26 03:35 | Billing Data ---
Date of Service November 25, 2019 Coding Level of Care Code 07675 Initial Inpt Care Lvl 3
[2019-11-26] MEDS ORDERED: PNEUMOCOCCAL ADMINISTRATION CHARGE ONE (04:42)
[2019-11-26] MEDS ORDERED: INFLUENZA ADMINISTRATION CHARGE ONE (04:42)
[2019-11-26] MEDS ORDERED: PNEUMOCOCCAL POLYSACCHARIDES 25 MCG/0.5 ML VIAL/SYR IM ONE (04:42)
[2019-11-26] MEDS ORDERED: INFLUENZA VACCINE HIGH DOSE 65+ 0.5 ML SYR IM ONE (04:42)
[2019-11-26] MEDS: ENOXAPARIN INJ 40 MG/0.4 ML SYR SQ SCH (07:32)
[2019-11-26] MEDS: CALCIUM 600MG + VIT D 400 IU TAB PO SCH ×2 (07:33→20:32)
[2019-11-26] MEDS: ASPIRIN 81 MG ECTAB PO SCH (07:33)
[2019-11-26] MEDS: LEVOTHYROXINE SODIUM 75 MCG TABLET PO SCH (07:33)
[2019-11-26] MEDS: PRAVASTATIN SOD 20 MG TAB PO SCH (07:33)
[2019-11-26] MEDS: PANTOprazole 40 MG TAB PO SCH (07:33)
[2019-11-26] MEDS: INSULIN ASPART 100 UNITS/ML 3 ML PEN SC SCH ×4 (07:53→20:32)
--- NOTE | 2019-11-26 11:27 | Cardiology Consultation ---
Date of Consultation November 26, 2019 Assessment & Plan (1) Aortic stenosis: 2. Acute diastolic heart failure 3. Hypertension 4. Peripheral artery disease--minimal disease on prior ultrasounds, asymptomatic 5. Type 2 diabetes 6. Anemia Patient here with new shortness of breath, intermittent chest discomfort over the last 1 to 2 months. Pulmonary edema on presenting imaging yesterday and on exam today still with pulmonary and systemic venous congestion. Reviewed repeat echocardiogram which shows now severe aortic stenosis, preserved LV function and evidence of elevated filling pressures. In the setting of now symptomatic severe aortic stenosis will need to pursue aortic valve replacement. For now recommend additional diuresis for acute diastolic heart failure. Additional Lasix 40 mg IV twice daily today. If symptoms resolved with euvolemia will arrange for outpatient cardiac surgery evaluation at [facility]. If persistent symptoms transfer as an inpatient. We will continue to follow. History of Present Illness Attending Physician: Chalino Spivey History of Present Illness Mrs. Delgado is a very pleasant 78-year-old woman with a history of moderate to severe aortic stenosis, hypertension, type 2 diabetes, hyperlipidemia, nonobstructive lower extremity peripheral arterial disease who was admitted with shortness of breath, chest discomfort and hypoxia at primary care's office. Patient known to me from the outpatient setting. Was last seen back in July 2019. At that time repeat echo again showed moderate to severe aortic stenosis (PV 4.1, MG 37, CHELA 0.98). She was asymptomatic at that time and continued surveillance recommended. Today patient states that has been having intermittent episodes of shortness of breath with chest tightness over the last 2 months. Denies palpitations. Denies worsening lower extremity edema, orthopnea. She presented to her PCPs office yesterday endorsing shortness of breath, generalized weakness and pulse ox at home showing O2 sats as low as the 70s. O2 sats in the 80s at office and was referred to ED. There chest x-ray, CTA showed mild pulmonary congestion. No evidence of PE. EKG sinus rhythm without significant ST abnormalities. Troponin negative x3, proBNP 2100. Given 1 dose of IV Lasix. This morning patient endorses some improvement in dyspnea. Actively vomiting at time of interview which she states is new. Prior cardiac studies: Echo 07/2019: Moderate LVH, EF 65%, grade 1 diastolic dysfunction. Moderate to severe left ear entheses PV 4.1, MG 37, CHELA 0.98, DI 0.38), mild AI Allergies Allergy/AdvReac Type Severity Reaction Status Date / Time adhesive Allergy Mild SKIN Verified 11/26/19 00:23 IRRITATION KINJAL Inhibitors Allergy Unknown LISTED ON Verified 11/26/19 00:23 MNPG Penicillins Allergy Unknown CAN'T Verified 11/26/19 00:23 REMEMBER Home Medications Home Medications Medication Instructions Recorded Confirmed Type aspirin [Aspir-81] 81 mg PO DAILY 12/22/18 11/26/19 History calcium carbonate-vitamin D3 1 tab PO BID 12/22/18 11/26/19 History [Caltrate 600 + D] metformin 500 mg PO BIDM 12/22/18 11/26/19 History omega 4-aqf-bls-fish oil [Fish Oil] 3,000 mg PO DAILY 12/22/18 11/26/19 History omeprazole 20 mg PO DAILY 12/22/18 11/26/19 History ibuprofen 800 mg tablet 800 mg PO UD PRN tab 06/11/19 11/26/19 History levothyroxine 75 mcg tablet 75 mcg PO DAILY #90 tab 10/22/19 11/26/19 Rx Patient History Medical History Aortic stenosis (Acute) Benign essential hypertension (Acute) Generalized osteoarthritis of multiple sites (Acute) Hyperlipidemia (Acute) Hypothyroidism (Acute) No pertinent past medical history 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 (Acute) Type 2 diabetes mellitus (Acute) Surgical History History of tubal ligation Family History Father Dementia Mother Lung cancer Grandmother Heart disease Other Family history non-contributory Social History Preferred Language: Algerian Communication Ability: Effective Application Design Engineer Required: No Beliefs That Will Affect Care: None marital status: Current Living Situation: Spouse Current Living Situation Comment: house Other Information That Helps Us Care for You: No Feels Safe at Home: Yes Safety Concerns: Feels Safe At This Time Smoking Status: Never smoker Do You Dip or Chew Tobacco: No ; Second Hand Exposure: Yes ( smoked) ; Tobacco Cessation Education Requested by Patient: No Hx Alcohol Use: No Hx Substance Use: No Seatbelt Use: always Review of Systems Review of Systems: All systems reviewed & are unremarkable except as noted in HPI & below Physical Exam Physical Exam: General: Uncomfortable, nauseous Eyes: Sclerae anicteric, extraocular movements intact HENT: Oropharynx clear mucous membranes moist Neck: JVP around 9-10 Lungs: Crackles at bases bilaterally Cardiac: Regular rate with 3/6 systolic ejection murmur Vascular: 2+ radial Abdomen: Soft, nontender, nondistended, positive bowel sounds. Extremities: Well perfused, no peripheral edema Skin: No rashes or lesions. Neuro: Nonfocal Psych: Alert orient x3, normal affect and mood Results & Data Vital Signs (Past 12 Hours) Vital Signs Temp Pulse Pulse Resp BP BP Pulse Ox 11/26/19 07:52 97.7 F 75 18 103/61 90 11/26/19 01:39 98.2 F 79 18 99/55 L 95 11/26/19 01:30 75 11/26/19 01:19 11/26/19 01:15 98.2 F 79 18 99/55 L 95 11/25/19 23:47 86 24 129/87 95 Pulse Ox 11/26/19 07:52 11/26/19 01:39 11/26/19 01:30 11/26/19 01:19 95 11/26/19 01:15 11/25/19 23:47 PG Care Time/CCT Total # of Minutes Spent Total Time Spent with Patient: Total time spent is greater than 50% in coordination of care (as documented) at patient's floor/unit and/or counseling patient: Coding Level of Care Code 34869 Inpt Consult Level 4 Diagnoses Aortic stenosis I35.0
[2019-11-26] MEDS: FUROSEMIDE 40 MG in SYRINGE 0 ML IV SCH ×2 (12:17→16:56)
--- NOTE | 2019-11-26 16:27 | XCELERA ---
[id number] [id number]
--- NOTE | 2019-11-26 17:17 | Electrocardiogram Report ---
Test Reason : Blood Pressure : / mmHG Vent. Rate : 093 BPM Atrial Rate : 093 BPM P-R Int : 160 ms QRS Dur : 076 ms QT Int : 360 ms P-R-T Axes : 071 -07 100 degrees QTc Int : 447 ms Sinus rhythm with sinus arrhythmia with occasional Premature ventricular complexes Abnormal ECG When compared with ECG of 20-JUN-2001 07:27, Premature ventricular complexes are now Present Confirmed by Brad Matthews ([id number]) on 11/26/2019 5:16:55 PM Referred By: REFERRED SELF Confirmed By:Jose Matthews
[2019-11-26 19:04] LABS: Base Excess ABG 12.2 mEq/L (-9-1.8); HCO3 ABG 42 mmol/L (19-24); Oxygen Saturation ABG 94.3 % (90-95); PCO2 ABG 88 mmHg (35-46); PO2 ABG 77 mmHg (80-95)
[2019-11-26 19:06] LABS: Allen Test POS (Pos)
[2019-11-26 19:23] LABS: BUN Creatinine Ratio 23.7 (10-20); Calcium 9.3 mg/dl (8.5-10.1); Creatinine Clr Calc Pharmacy 44.6 ml/min; Est GFR (African American) 66.9; Est GFR (Non-African American) 57.7; Potassium 3.9 mmol/L (3.5-5.1)
--- NOTE | 2019-11-26 19:56 | XRay Report ---
SINGLE VIEW CHEST CLINICAL HISTORY: Respiratory acidosis. FINDINGS: An AP, portable, upright chest radiograph is compared to chest x-ray and chest CT dated 10/29. The examination is degraded by portable technique and patient rotation. The heart is enlarged noting atherosclerotic calcification of the thoracic aorta. There is pulmonary vascular congestion. There are trace pleural effusions with dependent atelectasis. No pneumothorax is seen. The skeletal s tructures are osteopenic. The bony thorax is grossly intact. IMPRESSION: 1. Cardiomegaly with evidence of congestive failure. No change from yesterday. 2. Trace pleural effusions. ACT 112: Negative or not required by law. Electronically signed by: Cecilio Howe M.D. 11/26/2019 7:54 PM
--- NOTE | 2019-11-26 23:03 | Hospitalist Progress Note ---
Date of Service November 26, 2019 Assessment & Plan (1) Hypercapnic respiratory failure: Patient became confused in the early afternoon. She waxed and waned for a few hours But then in the evening, patient became unresponsive. ABG was obtained and showed hypercapnic respiratory failure. Patient was signed off to intensivsit APC warp tension tester and over night physician. Patient will be placed on BIPAP and will recheck ABG. likely multifactorial Obesity hypoventilatory syndrome vs undiagnosed COPD will monitor. (2) Metabolic encephalopathy: Patient is confused. likely from above problem. (3) Hypoxia: Shakira Delgado is a pleasant 79 y/o female with past medical hx of mod-severe aortic stenosis, HLD, HTN, DM2, Hypothryoid, GERD who presented from her PCP appointment for Hypoxia with values at 85%, also having central chest pressure with exertion and dyspnea worsened with exertion. - Suspect related to severe aortic stenosis and a diet over recommended daily value of sodium; fixed cardiac output causing worsening of symptoms with exertion -Improved with IV lasix. - Monitor I&O - Weight appears up from baseline about 4kg this past month - CXR showing cardiomegaly and Mild congestive change; CTA negative for PE - [place]. Pollard [place] [facility] [place] to group - Echo performed on 08/08/2019: 1. Normal LV size, mod concentric LVH; 2. LVEF 60-65%, no regional wall montion abnormalities; Grade I diasotlic dysfunction; 3. Normal RV size/funtion. 4. Moderate to severe aortic stenosis (PV 4.1, MG 37, CHELA 0.98, DI 0.38). 5. Mild aortic regurg. 6. Compared with prior 11/13/2017 slight progression in aortic stenosis, will continue to monitor. Code: Full Code FENGI: Heart healthy, Low Sodium, DM2 diet DVT ppx: Lovenox 40mg Subq q24 Admit: Med surg tele (4) SOB (shortness of breath): as above (5) Aortic stenosis: as above (6) Benign essential hypertension: Continue with home Candesartan 16mg PO daily (7) Hyperlipidemia: continue with home Pravastatin 20mg qday (8) Hypothyroidism: continue with home synthroid 75 mcg PO daily (9) Osteopenia: continue with home vitamin D (10) Type 2 diabetes mellitus: Hold metformin since received contrast from CTA Will order Novolog SS (11) DVT prophylaxis: on lovenox Subjective Patient became confused and is not providing adequate clinical history. Family is at bedside. Review of Systems Review of Systems: All systems reviewed & are unremarkable except as noted in HPI & below Physical Exam Physical Exam: Constitutional: WD/WN, vitals as above + obese, confused Eyes: PERRL, conjunctivae normal, anicteric sclerae ENMT: external ear and nose normal, oropharynx normal Neck: normal visual inspection and trachea midline Respiratory: normal respiratory effort; no respiratory distress Auscultation: + crackles (posterior bases bilaterally) Cardiovascular: Rate/Rhythm: regular rate and regular rhythm Heart Sounds: + murmur (3/6 systolic ejection best heard at right 2nd IC; S1 closure closer to S2) Extremities: no edema Gastrointestinal (Abdomen): Inspection/Auscultation: normal bowel sounds Percussion/Palpation: abdomen soft; abdomen nontender, no guarding and abdomen not rigid Musculoskeletal: Head/Neck/Chest: normocephalic and head atraumatic Skin: no rashes, warm and dry Neurologic: moves all extremities and awake Psychiatric: A+Ox1, euthymic affect Results & Data ([facility]) Vital Signs (Past 12 Hours) Vital Signs Temp Pulse Pulse Pulse Resp BP BP 11/26/19 22:51 36.7 C 89 18 123/64 11/26/19 20:24 76 20 11/26/19 19:18 37.0 C 84 18 106/61 11/26/19 16:04 79 11/26/19 15:36 36.9 C 85 20 112/66 11/26/19 11:26 36.9 C 93 H 22 141/69 H Pulse Ox 11/26/19 22:51 93 11/26/19 20:24 94 11/26/19 19:18 93 11/26/19 16:04 11/26/19 15:36 97 11/26/19 11:26 93 PG Care Time/CCT Total # of Minutes Spent Total Time Spent with Patient: Total time spent is greater than 50% in coordination of care (as documented) at patient's floor/unit and/or counseling patient: Critical Care Time: Yes Total Critical Care Time: 31 Spent above time in critical care time as patient is critically ill due to the acute hypercapnic respiratory failure. Coding Level of Care Code None Diagnoses Hypercapnic respiratory failure J96.92 Metabolic encephalopathy G93.41 Hypoxia R09.02 SOB (shortness of breath) R06.02 Aortic stenosis I35.0 Benign essential hypertension I10 Hyperlipidemia E78.5 Hypothyroidism E03.9 Osteopenia M85.80 Type 2 diabetes mellitus E11.9 DVT prophylaxis Z29.9 Additional Codes Critical Care Time - Critical Care Time: Yes ([id number])
[2019-11-26 23:05] LABS: Base Excess ABG 13.3 mEq/L (-9-1.8); HCO3 ABG 43 mmol/L (19-24); Oxygen Saturation ABG 92.9 % (90-95); PCO2 ABG 85 mmHg (35-46); PO2 ABG 68 mmHg (80-95); pH ABG 7.32 (7.35-7.45)
[2019-11-26 23:06] LABS: Allen Test POS (Pos)
[2019-11-26] MEDS: ACETAMINOPHEN 325 MG TAB PO PRN (23:35)
[2019-11-27] MEDS: LEVOTHYROXINE SODIUM 75 MCG TABLET PO SCH (05:41)
[2019-11-27 07:13] LABS: Basophils # (auto) 0.05 K/uL (0-0.2); Basophils % (auto) 0.5 %; Eosinophils # (auto) 0.23 K/uL (0-0.5); Eosinophils % (auto) 2.1 %; Hematocrit (blood only) 41.1 % (37-47); Hemoglobin 12.2 g/dL (12.0-16.0); Immature Granulocytes # (auto) 0.03 K/uL (0.00-0.02); Immature Granulocytes % (auto) 0.3 %; Lymphocytes # (auto) 1.17 K/uL (1.2-3.4); Lymphocytes % (auto) 10.8 %; Mean Corpuscular Hemoglobin 29.5 pg (25-34); Mean Corpuscular Hgb Conc 29.7 g/dL (32-36); Mean Corpuscular Volume 99.5 fL (80-100); Mean Platelet Volume 9.2 fL (7.4-10.4); Monocytes # (auto) 1.13 K/uL (0.11-0.59); Monocytes % (auto) 10.4 %; Neutrophils # (auto) 8.27 K/uL (1.4-6.5); Neutrophils % (auto) 75.9 %; Platelet Count 365 K/uL (130-400); RDW Coefficient of Variation 15.1 % (11.5-14.5); RDW Standard Deviation 55.3 fL (36.4-46.3); Red Blood Count 4.13 M/uL (4.2-5.4); White Blood Count 10.88 K/uL (4.8-10.8)
[2019-11-27 07:16] LABS: Base Excess ABG 11.3 mEq/L (-9-1.8); HCO3 ABG 41 mmol/L (19-24); Oxygen Saturation ABG 93.8 % (90-95); PCO2 ABG 81 mmHg (35-46); PO2 ABG 72 mmHg (80-95); pH ABG 7.32 (7.35-7.45)
[2019-11-27 07:20] LABS: Allen Test Pos (Pos)
[2019-11-27 07:48] LABS: Calcium 9.1 mg/dl (8.5-10.1); Creatinine Clr Calc Pharmacy 31.6 ml/min; Est GFR (African American) 44.8; Est GFR (Non-African American) 38.6; Potassium 3.9 mmol/L (3.5-5.1)
[2019-11-27] MEDS: ASPIRIN 81 MG ECTAB PO SCH (08:09)
[2019-11-27] MEDS: PANTOprazole 40 MG TAB PO SCH (08:09)
[2019-11-27] MEDS: ENOXAPARIN INJ 40 MG/0.4 ML SYR SQ SCH (08:10)
[2019-11-27] MEDS: PRAVASTATIN SOD 20 MG TAB PO SCH (08:10)
[2019-11-27] MEDS: CALCIUM 600MG + VIT D 400 IU TAB PO SCH ×2 (08:25→20:11)
[2019-11-27] MEDS: INSULIN ASPART 100 UNITS/ML 3 ML PEN SC SCH ×4 (08:36→21:21)
--- NOTE | 2019-11-27 09:24 | Pulmonary Consultation ---
Date of Consultation November 27, 2019 Assessment & Plan (1) Hypercapnic respiratory failure: -- Acute on chronic hypercapnic hypoxic respiratory failure ABG at time of admission 7.32/85/60 8/93% on 40% FiO2 Patient's bicarb in the serum is 42 Patient most likely has a component of OHS as well given her BMI is 35 Continue with BiPAP PRN and nightly Inhaled bronchodilator therapy Patient does have absolute eosinophil count on the first lab 450 with peripheral eosinophilia of 5.2%. Patient denies any personal history of asthma but she has strong family history of asthma. CT chest personally reviewed: There is diffuse mosaicism appreciated. There is mild mediastinal lymphadenopathy. There is interstitial thickening appreciated special in the right upper lobe. Can do pulse oximetry overnight on room air to see if patient desaturates for greater than 5 minutes less than 88%. If she does she will qualify for BiPAP before discharge. If she does not qualify she will need polysomnography as an outpatient. 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 Hypersensitivity pneumonitis can look like this too (although she doesn't have any significant hx of any exposure) Usually a trial of bronchodilators with ICS/LABA inhaler(Breo/Symbicort) can be given to such patients to see if there is improvement in breathing. Although it has to keep in mind the patient's will get a little bit of tachycardia because of it. --Pulmonary hypertension Likely type II given severe aortic stenosis (2) Hypoxia: (3) Metabolic encephalopathy: History of Present Illness Attending Physician: Chalino Spivey History of Present Illness 79-year-old female past medical history of severe aortic stenosis, hyp ertension, dyslipidemia, hypothyroidism, GERD was admitted to hospital because of exertional shortness of breath which is been going on for a while. She was also found to be hypoxic at her PCP. Patient denies any wheezing. Denies any chest pain. 1 pillow orthopnea. No dizziness, no headache, no nausea, no vomiting. No dysuria, no diarrhea, no hematuria, no hematochezia. No recent upper respiratory infection. No recent travel history. No night sweats, no weight loss. Social history: Non-smoker, significant secondhand smoke, no alcohol use, no illicit drug use. No birds at home. Has dogs at home which she is not allergic to. Does not stay on a farm. No poultry. Strong family history of asthma. No personal history of asthma. No personal or family history of lung cancer. Allergies Allergy/AdvReac Type Severity Reaction Status Date / Time adhesive Allergy Mild SKIN Verified 11/26/19 00:23 IRRITATION KINJAL Inhibitors Allergy Unknown LISTED ON Verified 11/26/19 00:23 MNPG Penicillins Allergy Unknown CAN'T Verified 11/26/19 00:23 REMEMBER Home Medications Home Medications Medication Instructions Recorded Confirmed Type aspirin [Aspir-81] 81 mg PO DAILY 12/22/18 11/26/19 History calcium carbonate-vitamin D3 1 tab PO BID 12/22/18 11/26/19 History [Caltrate 600 + D] metformin 500 mg PO BIDM 12/22/18 11/26/19 History omega 1-gvi-smb-fish oil [Fish Oil] 3,000 mg PO DAILY 12/22/18 11/26/19 History omeprazole 20 mg PO DAILY 12/22/18 11/26/19 History ibuprofen 800 mg tablet 800 mg PO UD PRN tab 06/11/19 11/26/19 History levothyroxine 75 mcg tablet 75 mcg PO DAILY #90 tab 10/22/19 11/26/19 Rx Patient History Medical History Aortic stenosis (Acute) Benign essential hypertension (Acute) Generalized osteoarthritis of multiple sites (Acute) Hyperlipidemia (Acute) Hypothyroidism (Acute) No pertinent past medical history 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 (Acute) Type 2 diabetes mellitus (Acute) Surgical History History of tubal ligation Family History Father Dementia Mother Lung cancer Grandmother Heart disease Other Family history non-contributory Social History Preferred Language: [place]ian Communication Ability: Effective Parts Driver Required: No Beliefs That Will Affect Care: None marital status: Current Living Situation: Spouse Current Living Situation Comment: house Other Information That Helps Us Care for You: No Feels Safe at Home: Yes Safety Concerns: Feels Safe At This Time Smoking Status: Never smoker Do You Dip or Chew Tobacco: No ; Second Hand Exposure: Yes ( smoked) ; Tobacco Cessation Education Requested by Patient: No Hx Alcohol Use: No Hx Substance Use: No Seatbelt Use: always Review of Systems Review of Systems: All systems reviewed & are unremarkable except as noted in HPI & below Physical Exam Physical Exam: Constitutional: No acute distress HEENT: EOMI, PERRLA Respiratory system: Good air entry bilaterally, no wheeze, no rhonchi, positive crackles bilateral lower lobes CVS: S1-S2 positive, positive 4 out of 6 holosystolic murmur appreciated best at the aorta Abdomen: Soft, nontender, nondistended, positive bowel sounds x4 Extremities: +2 pulses bilaterally radialis/ dorsalis pedis, no cyanosis, no edema Neuro: Awake alert oriented x3 Psych: Normal mood and affect Skin: no rashes, warm and dry Lymphatic: no cervical or axillary lymphadenopathy Results & Data ([facility]) Vital Signs (Past 12 Hours) Vital Signs Temp Pulse Pulse Resp BP BP Pulse Ox 11/27/19 08:37 99 H 11/27/19 07:31 37.3 C 110 H 20 94/58 L 91 11/27/19 03:41 69 26 H 91 11/27/19 02:52 98 H 27 H 92 11/27/19 00:58 92 H 11/26/19 23:29 101 H 30 H 91 11/26/19 22:51 36.7 C 89 18 123/64 93 11/27/19 07:00 11/27/19 07:00 PG Care Time/CCT Total # of Minutes Spent Total Time Spent with Patient: Total time spent is greater than 50% in coordination of care (as documented) at patient's floor/unit and/or counseling patient: [place] [address] Initial Inpt Care Lvl 3 Patient Type New Diagnoses Hypercapnic respiratory failure J96.92 Hypoxia R09.02 Metabolic encephalopathy G93.41
[2019-11-27] MEDS: ACETAMINOPHEN 325 MG TAB PO PRN (19:13)
[2019-11-27] MEDS: ALBUT/IPRATROP 3MG/0.5MG NEB 3 ML VIAL NEB SCH ×2 (20:13→22:56)
--- NOTE | 2019-11-27 23:48 | Hospitalist Progress Note ---
Date of Service November 27, 2019 Assessment & Plan (1) Hypercapnic respiratory failure: Patient had elevated C02, levels in the 80s. Clinically improved on BIPAP though c02 remained elevated on ABG. Appreciate input from pulmonary. will hold off steroids. Given BMI, likely Obstructive Sleep Apnea is playing a role with Obesity hypoventilatory Syndrome. ABG was obtained and showed hypercapnic respiratory failure. Patient was signed off to computer aided design operator APC front desk officer and over night physician. Patient will be placed on BIPAP and will recheck ABG. likely multifactorial will monitor. (2) Metabolic encephalopathy: Patient is confused. likely from above problem. (3) Hypoxia: Shakira Delgado is a pleasant 79 y/o female with past medical hx of mod-severe aortic stenosis, HLD, HTN, DM2, Hypothryoid, GERD who presented from her PCP appointment for Hypoxia with values at 85%, also having central chest pressure with exertion and dyspnea worsened with exertion. - Suspect related to severe aortic stenosis and a diet over recommended daily value of sodium; fixed cardiac output causing worsening of symptoms with exertion -Improved with IV lasix. - Monitor I&O - Weight appears up from baseline about 4kg this past month - CXR showing cardiomegaly and Mild congestive change; CTA negative for PE - Follows with Dr. Pollard Cards [facility] [place]; consult placed to group - Echo performed on 08/08/2019: 1. Normal LV size, mod concentric LVH; 2. LVEF 60-65%, no regional wall montion abnormalities; Grade I diasotlic dysfunction; 3. Normal RV size/funtion. 4. Moderate to severe aortic stenosis (PV 4.1, MG 37, CHELA 0.98, DI 0.38). 5. Mild aortic regurg. 6. Compared with prior 11/13/2017 slight progression in aortic stenosis, will continue to monitor. Code: Full Code FENGI: Heart healthy, Low Sodium, DM2 diet DVT ppx: Lovenox 40mg Subq q24 Admit: Med surg tele (4) SOB (shortness of breath): as above (5) Aortic stenosis: as above (6) Benign essential hypertension: Continue with home Candesartan 16mg PO daily (7) Hyperlipidemia: continue with home Pravastatin 20mg qday (8) Hypothyroidism: continue with home synthroid 75 mcg PO daily (9) Osteopenia: continue with home vitamin D (10) Type 2 diabetes mellitus: Hold metformin since received contrast from CTA Will order Novolog SS (11) DVT prophylaxis: on lovenox Subjective Patient reports feeling much better today. Family is at bedside and reports she is more oriented today. Patient states she is breathing better today, less shortness of breath. Review of Systems Review of Systems: All systems reviewed & are unremarkable except as noted in HPI & below Physical Exam Physical Exam: Constitutional: WD/WN, vitals as above + obese, no longer confused Eyes: PERRL, conjunctivae normal, anicteric sclerae ENMT: external ear and nose normal, oropharynx normal Neck: normal visual inspection and trachea midline Respiratory: normal respiratory effort; no respiratory distress Auscultation: clear Cardiovascular: Rate/Rhythm: regular rate and regular rhythm Heart Sounds: + murmur (3/6 systolic ejection best heard at right 2nd IC; S1 closure closer to S2) Extremities: no edema Gastrointestinal (Abdomen): Inspection/Auscultation: normal bowel sounds Percussion/Palpation: abdomen soft; abdomen nontender, no guarding and abdomen not rigid Musculoskeletal: Head/Neck/Chest: normocephalic and head atraumatic Skin: no rashes, warm and dry Neurologic: moves all extremities and awake Psychiatric: A+Ox2, euthymic affect Results & Data ([facility]) Vital Signs (Past 12 Hours) Vital Signs Temp Pulse Pulse Pulse Resp BP BP 11/27/19 22:58 70 25 H 11/27/19 22:56 86 25 H 11/27/19 20:15 86 11/27/19 19:33 36.8 C 94 H 18 101/60 11/27/19 15:34 106 H 11/27/19 15:03 37.3 C 94 H 18 98/63 L 81/44 L Pulse Ox 11/27/19 22:58 93 11/27/19 22:56 97 11/27/19 20:15 11/27/19 19:33 92 11/27/19 15:34 11/27/19 15:03 93 PG Care Time/CCT Total # of Minutes Spent Total Time Spent with Patient: Total time spent is greater than 50% in coordination of care (as documented) at patient's floor/unit and/or counseling patient: Coding Level of Care Code 48373 Subseq Hosp Care Lvl 3 Diagnoses Hypercapnic respiratory failure J96.92 Metabolic encephalopathy G93.41 Hypoxia R09.02 SOB (shortness of breath) R06.02 Aortic stenosis I35.0 Benign essential hypertension I10 Hyperlipidemia E78.5 Hypothyroidism E03.9 Osteopenia M85.80 Type 2 diabetes mellitus E11.9 DVT prophylaxis Z29.9 Time Spent (min) 35
[2019-11-28] MEDS: LEVOTHYROXINE SODIUM 75 MCG TABLET PO SCH (06:00)
[2019-11-28] MEDS: ALBUT/IPRATROP 3MG/0.5MG NEB 3 ML VIAL NEB SCH ×3 (07:11→22:08)
[2019-11-28] MEDS: PRAVASTATIN SOD 20 MG TAB PO SCH (07:22)
[2019-11-28] MEDS: PANTOprazole 40 MG TAB PO SCH (07:22)
[2019-11-28] MEDS: ASPIRIN 81 MG ECTAB PO SCH (07:22)
[2019-11-28] MEDS: CALCIUM 600MG + VIT D 400 IU TAB PO SCH ×2 (07:22→20:59)
[2019-11-28] MEDS: ENOXAPARIN INJ 40 MG/0.4 ML SYR SQ SCH (07:22)
[2019-11-28 07:48] LABS: Creatinine Clr Calc Pharmacy 37.7 ml/min; Est GFR (African American) 55.3; Est GFR (Non-African American) 47.7
[2019-11-28] MEDS: INSULIN ASPART 100 UNITS/ML 3 ML PEN SC SCH ×4 (08:15→21:08)
[2019-11-28 09:09] LABS: Base Excess ABG 13.4 mEq/L (-9-1.8); HCO3 ABG 39 mmol/L (19-24); Oxygen Saturation ABG 94.1 % (90-95); PCO2 ABG 51 mmHg (35-46); PO2 ABG 63 mmHg (80-95)
[2019-11-28 09:10] LABS: Allen Test Pos (Pos)
--- NOTE | 2019-11-28 10:32 | Pulmonology Progress Note ---
Date of Service November 28, 2019 Assessment & Plan (1) Hypercapnic respiratory failure: -- Acute on chronic hypercapnic hypoxic respiratory failure ABG at time of admission 7.32/85/60 8/93% on 40% FiO2 Patient's bicarb in the serum is 42 Patient most likely has a component of OHS as well given her BMI is 35 Continue with BiPAP PRN and nightly Inhaled bronchodilator therapy Patient does have absolute eosinophil count on the first lab 450 with peripheral eosinophilia of 5.2%. Patient denies any personal history of asthma but she has strong family history of asthma. Patient does not stay on a farm. Has 2 dogs and a cat at home which she is not allergic to. CT chest: There is diffuse mosaicism appreciated. There is mild mediastinal lymphadenopathy. There is interstitial thickening appreciated special in the right upper lobe. Patient is polysomnography as an outpatient. 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 Hypersensitivity pneumonitis can look like this too (although she doesn't have any significant hx of any exposure) Usually a trial of bronchodilators with ICS/LABA inhaler(Breo/Symbicort) can be given to such patients to see if there is improvement in breathing. Although it has to keep in mind the patient's will get a little bit of tachycardia because of it. --Pulmonary hypertension Likely type II given severe aortic stenosis Plan: Patient's ABG from today 7.5/51/63/94% on room air. Give the patient's pH is alkalotic acetazolamide to 50 mg p.o. twice daily for for 1 day and reassessing the pH tomorrow. As patient is not comfortable with the mask which she has right now can try a full facemask at night with her BiPAP. Please note the above document was generated using voice recognition software. It may contain grammatical, syntax or spelling errors. (2) Hypoxia: (3) Metabolic encephalopathy: Subjective Patient seen and examined at bedside. No acute distress, no adverse events overnight. Patient used BiPAP overnight but she says that the mask was too tight and she did not get good sleep because of that. Denies any chest pain, no dizziness, no headache, no nausea, no vomiting. Urinating well. Review of Systems Review of Systems: All systems reviewed & are unremarkable except as noted in HPI & below Physical Exam Physical Exam: Constitutional: No acute distress HEENT: EOMI, PERRLA Respiratory system: Good air entry bilaterally, no wheeze, no rhonchi, positive crackles bilateral lower lobes CVS: S1-S2 positive, positive 4 out of 6 holosystolic murmur appreciated best at the aorta Abdomen: Soft, nontender, nondistended, positive bowel sounds x4 Extremities: +2 pulses bilaterally radialis/ dorsalis pedis, no cyanosis, +1 edema bilateral lower extremity Neuro: Awake alert oriented x3 Psych: Normal mood and affect Skin: no rashes, warm and dry Lymphatic: no cervical or axillary lymphadenopathy Results & Data ([facility]) Vital Signs (Past 12 Hours) Vital Signs Temp Pulse Pulse Resp BP Pulse Ox 11/28/19 10:16 93 11/28/19 07:50 36.8 C 91 H 20 121/75 97 11/28/19 07:12 92 H 20 96 11/28/19 04:00 36.7 C 76 20 121/77 95 11/28/19 03:16 107 H 25 H 95 11/28/19 02:13 95 H 11/28/19 00:00 36.7 C 98 H 20 105/54 L 99 11/27/19 22:58 70 25 H 93 11/27/19 22:56 86 25 H 97 11/27/19 07:00 11/28/19 08:59 PG Care Time/CCT Total # of Minutes Spent Total Time Spent with Patient: Total time spent is greater than 50% in coordination of care (as documented) at patient's floor/unit and/or counseling patient: Coding Level of Care Code 28985 Subseq Hosp Care Lvl 3 Diagnoses Hypercapnic respiratory failure J96.92 Hypoxia R09.02 Metabolic encephalopathy G93.41
[2019-11-28] MEDS: acetaZOLAMIDE 250 MG TAB PO SCH ×2 (12:13→20:59)
--- NOTE | 2019-11-28 22:59 | Hospitalist Progress Note ---
Date of Service November 28, 2019 Assessment & Plan (1) Hypercapnic respiratory failure: Patient had elevated C02, levels in the 80s. Clinically improved on BIPAP, C02 has also improved. Appreciate input from pulmonary. will hold off steroids. Given BMI, likely Obstructive Sleep Apnea is playing a role with Obesity hypoventilatory Syndrome. ABG was obtained and showed hypercapnic respiratory failure. likely multifactorial will monitor. will obtain a sleep pulse oxymetry overnight tomorrow on 11/29/20 (2) Metabolic encephalopathy: resolved. (3) Hypoxia: Shakira Delgado is a pleasant 79 y/o female with past medical hx of mod-severe aortic stenosis, HLD, HTN, DM2, Hypothryoid, GERD who presented from her PCP appointment for Hypoxia with values at 85%, also having central chest pressure with exertion and dyspnea worsened with exertion. - Suspect related to severe aortic stenosis and a diet over recommended daily value of sodium; fixed cardiac output causing worsening of symptoms with exertion -Improved with IV lasix. - Monitor I&O - Weight appears up from baseline about 4kg this past month - CXR showing cardiomegaly and Mild congestive change; CTA negative for PE - [place]. Pollard [place] [facility] [place] consult placed to group - Echo performed on 08/08/2019: 1. Normal LV size, mod concentric LVH; 2. LVEF 60-65%, no regional wall montion abnormalities; Grade I diasotlic dysfunction; 3. Normal RV size/funtion. 4. Moderate to severe aortic stenosis (PV 4.1, MG 37, CHELA 0.98, DI 0.38). 5. Mild aortic regurg. 6. Compared with prior 11/13/2017 slight progression in aortic stenosis, will continue to monitor. Code: Full Code FENGI: Heart healthy, Low Sodium, DM2 diet DVT ppx: Lovenox 40mg Subq q24 Admit: Med surg tele (4) SOB (shortness of breath): as above (5) Aortic stenosis: as above (6) Benign essential hypertension: Continue with home Candesartan 16mg PO daily (7) Hyperlipidemia: continue with home Pravastatin 20mg qday (8) Hypothyroidism: continue with home synthroid 75 mcg PO daily (9) Osteopenia: continue with home vitamin D (10) Type 2 diabetes mellitus: Hold metformin since received contrast from CTA Will order Novolog (11) DVT prophylaxis: on lovenox Subjective Patient reports breathing better today. She reports no new symptoms. Review of Systems Review of Systems: All systems reviewed & are unremarkable except as noted in HPI & below Physical Exam Physical Exam: Constitutional: WD/WN, vitals as above + obese, no longer confused Eyes: PERRL, conjunctivae normal, anicteric sclerae ENMT: external ear and nose normal, oropharynx normal Neck: normal visual inspection and trachea midline Respiratory: normal respiratory effort; no respiratory distress Auscultation: clear Cardiovascular: Rate/Rhythm: regular rate and regular rhythm Heart Sounds: + murmur (3/6 systolic ejection best heard at right 2nd IC; S1 closure closer to S2) Extremities: no edema Gastrointestinal (Abdomen): Inspection/Auscultation: normal bowel sounds Percussion/Palpation: abdomen soft; abdomen nontender, no guarding and abdomen not rigid Musculoskeletal: Head/Neck/Chest: normocephalic and head atraumatic Skin: no rashes, warm and dry Neurologic: moves all extremities and awake Psychiatric: A+Ox2, euthymic affect Results & Data ([facility]) Vital Signs (Past 12 Hours) Vital Signs Temp Pulse Pulse Resp BP BP Pulse Ox 11/28/19 22:10 99 H 18 95 11/28/19 19:35 37.0 C 95 H 20 129/75 93 11/28/19 16:02 93 H 11/28/19 15:03 66 18 96 11/28/19 14:51 37.0 C 93 H 18 97/60 L 91 11/28/19 10:59 37.2 C 90 18 88/52 L 95 PG Care Time/CCT Total # of Minutes Spent Total Time Spent with Patient: Total time spent is greater than 50% in coordination of care (as documented) at patient's floor/unit and/or counseling patient: Coding Level of Care Code 04849 Subseq Hosp Care Lvl 2 Diagnoses Hypercapnic respiratory failure J96.92 Metabolic encephalopathy G93.41 Hypoxia R09.02 SOB (shortness of breath) R06.02 Aortic stenosis I35.0 Benign essential hypertension I10 Hyperlipidemia E78.5 Hypothyroidism E03.9 Osteopenia M85.80 Type 2 diabetes mellitus E11.9 DVT prophylaxis Z29.9 Time Spent (min) 25
[2019-11-29] MEDS: LEVOTHYROXINE SODIUM 75 MCG TABLET PO SCH (06:19)
[2019-11-29] MEDS: ACETAMINOPHEN 325 MG TAB PO PRN ×2 (06:26→21:51)
[2019-11-29] MEDS: ALBUT/IPRATROP 3MG/0.5MG NEB 3 ML VIAL NEB SCH ×3 (07:14→21:45)
[2019-11-29 07:32] LABS: Base Excess ABG 11.6 mEq/L (-9-1.8); HCO3 ABG 39 mmol/L (19-24); PCO2 ABG 65 mmHg (35-46); PO2 ABG 79 mmHg (80-95)
[2019-11-29] MEDS: CALCIUM 600MG + VIT D 400 IU TAB PO SCH ×2 (07:32→20:15)
[2019-11-29] MEDS: PRAVASTATIN SOD 20 MG TAB PO SCH (07:32)
[2019-11-29] MEDS: ASPIRIN 81 MG ECTAB PO SCH (07:32)
[2019-11-29] MEDS: ENOXAPARIN INJ 40 MG/0.4 ML SYR SQ SCH (07:32)
[2019-11-29] MEDS: PANTOprazole 40 MG TAB PO SCH (07:32)
[2019-11-29 07:41] LABS: Hematocrit (blood only) 39.7 % (37-47); Hemoglobin 12.1 g/dL (12.0-16.0); Mean Corpuscular Hemoglobin 29.2 pg (25-34); Mean Corpuscular Hgb Conc 30.5 g/dL (32-36); Mean Corpuscular Volume 95.7 fL (80-100); Mean Platelet Volume 9.1 fL (7.4-10.4); Platelet Count 328 K/uL (130-400); RDW Coefficient of Variation 15.2 % (11.5-14.5); RDW Standard Deviation 53.2 fL (36.4-46.3); Red Blood Count 4.15 M/uL (4.2-5.4); White Blood Count 7.72 K/uL (4.8-10.8)
[2019-11-29 07:50] LABS: Allen Test Pos (Pos)
[2019-11-29 08:05] LABS: BUN Creatinine Ratio 27.5 (10-20); Calcium 9.2 mg/dl (8.5-10.1); Creatinine Clr Calc Pharmacy 45.8 ml/min; Est GFR (African American) 74.5; Est GFR (Non-African American) 64.3; Potassium 3.4 mmol/L (3.5-5.1)
[2019-11-29] MEDS: INSULIN ASPART 100 UNITS/ML 3 ML PEN SC SCH ×4 (08:08→22:01)
--- NOTE | 2019-11-29 11:25 | Pulmonology Progress Note ---
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 Patient denies any personal history of asthma but she has strong family history of asthma. Patient does not stay on a farm. Has 2 dogs and a cat at home which she is not allergic to. CT chest: There is diffuse mosaicism appreciated. There is mild mediastinal lymphadenopathy. There is interstitial thickening appreciated special in the right upper lobe. Patient needs polysomnography as an outpatient. --Diffuse mosaicism on CAT scan of the chest Patient also seems to be hyperinflated Patient denies any history of smoking Given her absolute eosinophil count being 450 with diffuse mosaicism I think she will benefit from following up with the senior media buyer to have her outpatient pulmonary function test done. Hypersensitivity pneumonitis can look like this too (although she doesn't have any significant hx of any exposure) Usually a trial of bronchodilators with ICS/LABA inhaler(Breo/Symbicort) can be given to such patients to see if there is improvement in breathing. Although it has to keep in mind the patient's will get a little bit of tachycardia because of it. --Pulmonary hypertension Likely type II given severe aortic stenosis Plan: Patient's PCO2 is back to patient's baseline. We will give 1 more dose of acetazolamide today. Patient needs outpatient polysomnography the importance of using a BiPAP/CPAP at night explained to the patient in detail and in depth in front of the family. Patient can follow-up with the pulmonary as an outpatient. No further recommendations from pulmonary perspective. Will sign off recall if needed. Thanks Please note the above document was generated using voice recognition software. It may contain grammatical, syntax or spelling errors. (2) Hypoxia: (3) Metabolic encephalopathy: Subjective Patient seen and examined at bedside. No acute distress, no adverse events overnight. Patient did not use her BiPAP overnight stating that she has very difficulty us ing the mask. She even tried full-face masks but she was not able to tolerate it. Patient denies any chest pain, no shortness of breath, no headache, no nausea, no vomiting. Denies any palpitations. Review of Systems Review of Systems: All systems reviewed & are unremarkable except as noted in HPI & below Physical Exam Physical Exam: Constitutional: No acute distress HEENT: EOMI, PERRLA Respiratory system: Good air entry bilaterally, no wheeze, no rhonchi, positive crackles bilateral lower lobes CVS: S1-S2 positive, positive 4 out of 6 holosystolic murmur appreciated best at the aorta Abdomen: Soft, nontender, nondistended, positive bowel sounds x4 Extremities: +2 pulses bilaterally radialis/ dorsalis pedis, no cyanosis, +1 edema bilateral lower extremity Neuro: Awake alert oriented x3 Psych: Normal mood and affect Skin: no rashes, warm and dry Lymphatic: no cervical or axillary lymphadenopathy Results & Data ([facility]) Vital Signs (Past 12 Hours) Vital Signs Temp Pulse Pulse Pulse Resp BP Pulse Ox 11/29/19 07:30 36.7 C 94 H 18 112/66 94 11/29/19 07:14 98 H 16 90 11/29/19 04:05 36.8 C 98 H 20 100/63 97 11/29/19 00:00 105 H 11/28/19 23:40 37.2 C 106 H 20 104/57 L 92 11/29/19 07:08 11/29/19 07:08 11/25/19 11/26/19 11/26/19 18:42 18:46 22:54 ABG pH 7.30 L 7.32 L ABG pCO2 88 H 85 H ABG pO2 77 L 68 L ABG HCO3 42 H 43 H ABG O2 Saturation 94.3 92.9 ABG Base Excess 12.2 H 13.3 H VBG pH 7.35 L VBG pCO2 60 H VBG pO2 51 VBG HCO3 32 VBG O2 Saturation 81.8 VBG Base Excess 5.3 11/27/19 11/28/19 11/29/19 07:00 08:59 07:08 ABG pH 7.32 L 7.50 H 7.40 ABG pCO2 81 H 51 H 65 H ABG pO2 72 L 63 L 79 L ABG HCO3 41 H 39 H 39 H ABG O2 Saturation 93.8 94.1 95.0 ABG Base Excess 11.3 H 13.4 H 11.6 H VBG pH VBG pCO2 VBG pO2 VBG HCO3 VBG O2 Saturation VBG Base Excess PG Care Time/CCT Total # of Minutes Spent Total Time Spent with Patient: Total time spent is greater than 50% in coordination of care (as documented) at patient's floor/unit and/or counseling patient: Coding Level of Care Code 35406 Subseq Hosp Care Lvl 3 Diagnoses Hypercapnic respiratory failure J96.92 Hypoxia R09.02 Metabolic encephalopathy G93.41
[2019-11-29] MEDS ORDERED: acetaZOLAMIDE 250 MG TAB PO ONE (15:30)
--- NOTE | 2019-11-29 23:53 | Hospitalist Progress Note ---
Date of Service November 29, 2019 Assessment & Plan (1) Hypercapnic respiratory failure: Patient had elevated C02, levels in the 80s. Clinically improved on BIPAP, C02 has also improved. Appreciate input from pulmonary. will hold off steroids. Given BMI, likely Obstructive Sleep Apnea is playing a role with Obesity hypoventilatory Syndrome. ABG was obtained and showed hypercapnic respiratory failure. likely multifactorial will monitor. will obtain a sleep pulse oxymetry overnight tonight on 11/29/19 needs this to qualify for bipap at home. (2) Metabolic encephalopathy: resolved. (3) Hypoxia: Shakira Delgado is a pleasant 79 y/o female with past medical hx of mod-severe aortic stenosis, HLD, HTN, DM2, Hypothryoid, GERD who presented from her PCP appointment for Hypoxia with values at 85%, also having central chest pressure with exertion and dyspnea worsened with exertion. - Suspect related to severe aortic stenosis and a diet over recommended daily value of sodium; fixed cardiac output causing worsening of symptoms with exertion -Improved with IV lasix. Holdin lasix as creatinine worsened and weight returned to baseline. - Monitor I&O - Weight appears up from baseline about 4kg this past month - CXR showing cardiomegaly and Mild congestive change; CTA negative for PE - Follows with Dr. Pollard Cards [facility]; consult placed to group - Echo performed on 08/08/2019: 1. Normal LV size, mod concentric LVH; 2. LVEF 60-65%, no regional wall montion abnormalities; Grade I diasotlic dysfunction; 3. Normal RV size/funtion. 4. Moderate to severe aortic stenosis (PV 4.1, MG 37, CHELA 0.98, DI 0.38). 5. Mild aortic regurg. 6. Compared with prior 11/13/2017 slight progression in aortic stenosis, will continue to monitor. Code: Full Code FENGI: Heart healthy, Low Sodium, DM2 diet DVT ppx: Lovenox 40mg Subq q24 Admit: Med surg tele (4) SOB (shortness of breath): as above (5) Aortic stenosis: as above (6) Benign essential hypertension: Continue with home Candesartan 16mg PO daily (7) Hyperlipidemia: continue with home Pravastatin 20mg qday (8) Hypothyroidism: continue with home synthroid 75 mcg PO daily (9) Osteopenia: continue with home vitamin D (10) Type 2 diabetes mellitus: Hold metformin since received contrast from CTA Will order Novolog SS (11) DVT prophylaxis: on lovenox Subjective Patient reports no new symptoms except for dry nose and some epistaxis, which appears to be controlled. Review of Systems Review of Systems: All systems reviewed & are unremarkable except as noted in HPI & below Physical Exam Physical Exam: Constitutional: WD/WN, vitals as above + obese, not confused Eyes: PERRL, conjunctivae normal, anicteric sclerae ENMT: external ear and nose normal, oropharynx normal Neck: normal visual inspection and trachea midline Respiratory: normal respiratory effort; no respiratory distress Ausc ultation: clear Cardiovascular: Rate/Rhythm: regular rate and regular rhythm Heart Sounds: + murmur (3/6 systolic ejection best heard at right 2nd IC; S1 closure closer to S2) Extremities: no edema Gastrointestinal (Abdomen): Inspection/Auscultation: normal bowel sounds Percussion/Palpation: abdomen soft; abdomen nontender, no guarding and abdomen not rigid Musculoskeletal: Head/Neck/Chest: normocephalic and head atraumatic Skin: no rashes, warm and dry Neurologic: moves all extremities and awake Psychiatric: A+Ox2, euthymic affect Results & Data ([facility]) Vital Signs (Past 12 Hours) Vital Signs Temp Pulse Pulse Pulse Pulse Pulse Resp 11/29/19 23:00 88 11/29/19 21:45 102 H 11/29/19 19:43 36.8 C 96 H 20 11/29/19 16:15 92 H 11/29/19 16:00 36.9 C 88 18 BP Pulse Ox Pulse Ox Pulse Ox 11/29/19 23:00 95 11/29/19 21:45 90 11/29/19 19:43 102/66 96 11/29/19 16:15 11/29/19 16:00 105/66 92 PG Care Time/CCT Total # of Minutes Spent Total Time Spent with Patient: Total time spent is greater than 50% in coordination of care (as documented) at patient's floor/unit and/or counseling patient: Coding Level of Care Code 67876 Subseq Hosp Care Lvl 2 Diagnoses Hypercapnic respiratory failure J96.92 Metabolic encephalopathy G93.41 Hypoxia R09.02 SOB (shortness of breath) R06.02 Aortic stenosis I35.0 Benign essential hypertension I10 Hyperlipidemia E78.5 Hypothyroidism E03.9 Osteopenia M85.80 Type 2 diabetes mellitus E11.9 DVT prophylaxis Z29.9 Time Spent (min) 25
[2019-11-30] MEDS: LEVOTHYROXINE SODIUM 75 MCG TABLET PO SCH (06:17)
[2019-11-30] MEDS: ALBUT/IPRATROP 3MG/0.5MG NEB 3 ML VIAL NEB SCH ×3 (07:50→23:28)
[2019-11-30] MEDS: ASPIRIN 81 MG ECTAB PO SCH (08:08)
[2019-11-30] MEDS: CALCIUM 600MG + VIT D 400 IU TAB PO SCH ×2 (08:08→20:19)
[2019-11-30] MEDS: PANTOprazole 40 MG TAB PO SCH (08:08)
[2019-11-30] MEDS: PRAVASTATIN SOD 20 MG TAB PO SCH (08:08)
[2019-11-30] MEDS: INSULIN ASPART 100 UNITS/ML 3 ML PEN SC SCH ×4 (08:09→20:30)
[2019-11-30] MEDS: ENOXAPARIN INJ 40 MG/0.4 ML SYR SQ SCH (08:09)
--- NOTE | 2019-11-30 09:09 | Cardiology Progress Note ---
Date of Service November 30, 2019 Assessment & Plan (1) Aortic stenosis: 2. Acute diastolic heart failure 3. Hypertension 4. Hypercarbic respiratory failure/suspected OHS, ASHLEY 5. Type 2 diabetes 6. Anemia 7. Minimal nonobstructive PAD Admitting dyspnea, chest tightness and oxygen requirement improved Hemodynamically and electrically stable. Well-perfused with improved pulmonary congestion on exam today From a cardiac standpoint okay with discharge today Home on PRN Lasix 40 mg as needed for weight gain, recurrent dyspnea Discussed daily weights, salt restriction We will arrange outpatient follow-up with [facility] cardiac surgery for TAVR eval Subjective Patient feeling well today. States ready to go home. Denies any recurrent chest tightness. Breathing symptoms improved. No other new concerns. Telemetry reviewedno events. Review of Systems Review of Systems: All systems reviewed & are unremarkable except as noted in HPI & below Physical Exam Physical Exam: General: Comfortable, no acute distress HEENT: Sclerae anicteric, mucous membranes moist Lungs: Clear to auscultation bilaterally Cardiac: Regular rate and rhythm, 3/6 systolic ejection murmur Abdomen: Soft, nontender, nondistended, positive bowel sounds. Extremities: Warm, well perfused, no edema. 2+ radial pulses Skin: No rashes or lesions. Neuro: Nonfocal Psych: Alert orient x3, normal affect and mood Results & Data Vital Signs (Past 12 Hours) Vital Signs Temp Pulse Pulse Pulse Pulse Resp BP 11/30/19 07:51 87 16 11/30/19 07:17 85 11/30/19 07:00 97.5 F L 92 H 18 107/67 11/30/19 03:59 97.7 F 78 20 108/65 11/30/19 03:12 87 11/30/19 00:13 98.6 F 90 20 117/66 11/30/19 00:00 96 H 11/29/19 23:00 88 11/29/19 21:45 102 H Pulse Ox Pulse Ox Pulse Ox 11/30/19 07:51 97 11/30/19 07:17 11/30/19 07:00 95 11/30/19 03:59 97 11/30/19 03:12 96 11/30/19 00:13 98 11/30/19 00:00 11/29/19 23:00 95 11/29/19 21:45 90 PG Care Time/CCT Total # of Minutes Spent Total Time Spent with Patient: Total time spent is greater than 50% in coordination of care (as documented) at patient's floor/unit and/or counseling patient: Coding Level of Care Code 47792 Subseq Hosp Care Lvl 2 Diagnoses Aortic stenosis I35.0
[2019-11-30] MEDS ORDERED: HEPARIN (PORCINE) 1000 UNIT/ML 10 ML (CATH LAB USE ONLY) ONE (12:57)
[2019-11-30] MEDS ORDERED: NiCARDipine HCL INJ 2.5 MG/ML 10 ML AMP ONE (12:58)
[2019-11-30] MEDS ORDERED: fentaNYL citrate 100 MCG/2 ML VIAL ONE (12:58)
[2019-11-30] MEDS ORDERED: NITROGLYCERIN/D5W 100MCG/ML 20ML SYR ONE (12:59)
[2019-11-30] MEDS ORDERED: MIDAZOLAM HCL 1 MG/ML 2ML VIAL ONE (12:59)
--- NOTE | 2019-11-30 14:19 | Pre Anesthesia Assessment ---
Date of Service November 30, 2019 Pre Sedation Assessment Vital Signs Temp Pulse Pulse Pulse Pulse Pulse Resp 11/30/19 14:14 83 16 11/30/19 11:00 98.1 F 94 H 16 11/30/19 07:51 87 16 11/30/19 07:17 85 11/30/19 07:00 97.5 F L 92 H 18 11/30/19 03:59 97.7 F 78 20 11/30/19 03:12 87 11/30/19 00:13 98.6 F 90 20 11/30/19 00:00 96 H 11/29/19 23:00 88 11/29/19 21:45 102 H 11/29/19 19:43 98.2 F 96 H 20 11/29/19 16:15 92 H 11/29/19 16:00 98.4 F 88 18 BP Pulse Ox Pulse Ox Pulse Ox 11/30/19 14:14 116/57 L 94 11/30/19 11:00 124/75 97 11/30/19 07:51 97 11/30/19 07:17 11/30/19 07:00 107/67 95 11/30/19 03:59 108/65 97 11/30/19 03:12 96 11/30/19 00:13 117/66 98 11/30/19 00:00 11/29/19 23:00 95 11/29/19 21:45 90 11/29/19 19:43 102/66 96 11/29/19 16:15 11/29/19 16:00 105/66 92 Cardiovascular RRR, no murmur, no edema Respiratory normal respiratory effort, lungs clear to auscultation Pre-Sedation Airway Assessment Smoking Status: Never smoker Hx Sleep Apnea: No Hx Difficult Intubation: No Short, Thick Neck: No Thyromental Distance: > or= 3.5 Finger Breadths Oral Cavity: + Dentures Mallampati Class: III ASA: ASA3 NPO Status Date of Last Intake of Fluids: 11/30/19 Time of Last Intake of Fluids: 08:30 Date of Last Intake of Solid Food: 11/30/19 Time of Last Intake of Solid Foods: 08:30 Procedure Planning Contraindications for Sedation: none Current Medications Reviewed: Yes Notes The planned sedation has been discussed with the patient. Informed Consent was obtained. I have identified the patient, determined the appropriateness of sedation and have assessed the patient immediately prior to the procedure. All medicine(s) and interventions are by my order.
--- NOTE | 2019-11-30 14:19 | Post Anesthesia Assessment ---
Date of Service November 30, 2019 Post Sedation Assessment Vital Signs Temp Pulse Pulse Pulse Pulse Pulse Resp 11/30/19 14:14 83 16 11/30/19 11:00 98.1 F 94 H 16 11/30/19 07:51 87 16 11/30/19 07:17 85 11/30/19 07:00 97.5 F L 92 H 18 11/30/19 03:59 97.7 F 78 20 11/30/19 03:12 87 11/30/19 00:13 98.6 F 90 20 11/30/19 00:00 96 H 11/29/19 23:00 88 11/29/19 21:45 102 H 11/29/19 19:43 98.2 F 96 H 20 11/29/19 16:15 92 H 11/29/19 16:00 98.4 F 88 18 BP Pulse Ox Pulse Ox Pulse Ox 11/30/19 14:14 116/57 L 94 11/30/19 11:00 124/75 97 11/30/19 07:51 97 11/30/19 07:17 11/30/19 07:00 107/67 95 11/30/19 03:59 108/65 97 11/30/19 03:12 96 11/30/19 00:13 117/66 98 11/30/19 00:00 11/29/19 23:00 95 11/29/19 21:45 90 11/29/19 19:43 102/66 96 11/29/19 16:15 11/29/19 16:00 105/66 92 Recovery Score Activity: Moves 4 extremities Respiration: Deep Breath/Cough Circulation: +/-20% PreAnes Value Consciousness: Fully Awake Oxygen Saturation: O2 needed for >90% Post Anesthesia Score: 9 Discharge Sedation Level of Care: Fast Track Phase II Post Sedation Plan On clinical assessment, the patient appears to have tolerated the sedation without complications. Patient is recovering as anticipated. Patient will continue to be monitored by nursing and may be discharged when sedation discharge criteria are met per below protocol. Upon Completions of procedure up to 15 minutes continue every 5 minute vital signs and the P.A.R. score; then discharge to a Phase I or Fast Track to Phase II per the following guidelines: * Discharge Patient to appropriate Phase II area if PAR is 8 or greater or return to pre- procedure baseline. The post - procedure orders will be as directed. * If PAR score is less than 8 or not return to pre-procedure baseline then patient will follow Phase I monitoring till PAR is reached for Phase II. The Phase I may be done in procedure room or may call to secure a Phase I area. * If naloxone or flumazenil are used for reversal, hold in Phase I for continued monitoring from when last reversal dose was given for a minimum of 60 minutes or longer pending the nurse and/or physician discretion of patient condition before discharge to Phase II. Please call the Sedation Physician to re-evaluate and complete post-note for discharge to Phase II area. Do NOT discharge from procedure sedation or Phase 1 until post- sedation eval uation note is complete by procedure /sedation MD Sedation Discharge Instructions to be given to the patient at discharge to home.
--- NOTE | 2019-11-30 14:31 | Cardiac Catheterization ---
[facility] Data: Professor/Nurse Anesthetist Cardiac Status Clinical evaluation leading to the procedure CAD Presenation: Sx unlikely to be ischemic Anginal Classification: No Symptoms Heart Failure: NYHA Class: CCS IV Cardiogenic Shock within 24 Hours: No Cardiac Arrest within 24 Hours: No Imaging Studies Past 6 Months: Yes Stress Studies Past 6 Months: No Diagnostic Physicians Name: Brad Pollard MD Status: Elective Closure Device Percutaneous Entry Location: Radial Closure Device: Radial Band Recommendations: Valve Replacement Intraprocedure Events Significant Disection: No Perforation: No Cardiac Cath Procedure Full Procedure Date November 30, 2019 Pre-Procedure Diagnosis Pre-Procedure Diagnosis: Valvular Disease AUC Score AUC Score: 7 Post-Procedure Diagnosis Post-Procedure Diagnosis: Mild CAD Procedure(s) Performed Procedure(s) Performed: Coronary Angiography and Left Heart Cath Operations General Agent Brad Pollard MD Automotive Quality Manager(s) Pawel Guerra Estimated Blood Loss Estimated Blood Loss: 15 Medication(s) Medication(s): Fentanyl, Heparin, Lidocaine 1%, Nicardipine, Nitroglycerin and Versed Summary of Findings Indication: Severe aortic stenosis Access: 6 Fr slender right radial artery placed under ultrasound guidance Catheters: 4 Fr JR4, JL4 Findings: LM -large caliber, angiographically normal LAD -medium caliber, 30% proximal stenosis at trifurcation of first septal, diagonal. Distal vessel wraps around apex. Medium caliber first diagonal with 20% ostial stenosis. Ramuslarge caliber, angiographically normal Circumflex -medium caliber vessel, 20 to 30% ostial stenosis. Mid, distal vessel and large PLB without significant disease. RCA -dominant, large caliber vessel, angiographically normal LVEDP -21 Aortic valve pullback gradient - 76 mmHg Arterial Closure: TR band Summary: 1. Mild nonobstructive coronary artery disease -30% proximal LAD 20 to 30% ostial circumflex 2. Severe aortic stenosispeak to peak pullback gradient 76 mmHg 3. Elevated intracardiac filling pressure Recommendations: Proceed with evaluation for AVR Gentle diuretics Continued ASCVD risk factor modification Hemodynamics Rest Ao:: 121/62/90 Final Ao: 121/67/89 LV: 168/21 Recommendations Recommendations: Valve Replacement Specimens Specimens: None Radiation Exposure (mGy) 942 Contrast (mls) 40 Fluids (cc crystalloids) Fluids (cc crystalloids): 100 Drains Drains: none Anesthesia moderate Procedural Complication(s) None Disposition PCU I attest to the content of the Intraoperative Record and any orders documented therein. Any exceptions are noted below. [facility] Card Cath Procedure Codes Cardiac Catheterization Procedure 1: Cardiovascular Cath Procedures: 16821 Coronaries and LHC (+/-LV) Therapeutic Services & Ancillary Proc Procedure 1: Cardiovascular Tx and Anc Procedures: 06286 Ultrasonic Guidance Vascular Access Moderate Sedation Procedure 1: Sedation/Anesthesia: 42859 Mod Sedation by the same physician;Init15 Min Child Age 5 & Up PG Care Time/CCT Total # of Minutes Spent Total Time Spent with Patient: Total time spent is greater than 50% in coordination of care (as documented) at patient's floor/unit and/or counseling patient:
--- NOTE | 2019-11-30 16:21 | Hospitalist Progress Note ---
Date of Service November 30, 2019 Assessment & Plan (1) Hypoxia: Shakira Delgado is a pleasant 79 y/o female with past medical hx of mod-severe aortic stenosis, HLD, HTN, DM2, Hypothryoid, GERD who presented from her PCP appointment for hypoxia with values at 85%, also having central chest pressure with exertion and dyspnea worsened with exertion. - Suspect related to severe aortic stenosis and a diet over recommended daily value of sodium; fixed cardiac output causing worsening of symptoms with exertion. - Improved with IV Lasix. - Weight appears to be ~79-80 kg; weight was 83.3 kg on admission. - Echo performed on 08/08/2019: 1. Normal LV size, mod concentric LVH; 2. LVEF 60-65%, no regional wall motion abnormalities; Grade I diastolic dysfunction; 3. Normal RV size/function. 4. Moderate to severe aortic stenosis (PV 4.1, MG 37, CHELA 0.98, DI 0.38). 5. Mild aortic regurg. 6. Compared with prior 11/13/2017 slight progression in aortic stenosis. (2) Hypercapnic respiratory failure: Likely Obstructive Sleep Apnea is playing a role with Obesity hypoventilatory Syndrome. - ABG was obtained and showed hypercapnic respiratory failure. - Sleep pulse oxymetry overnight on 11/29/19 showed multiple prolonged episodes of hypoxemia. - Will arrange Bipap at home. (3) Aortic stenosis: Cardiac cath on 11/30 showed severe aortic stenosispeak to peak pullback gradient 76 mmHg. - Proceed with AVR evaluation as outpatient. (4) Hyperlipidemia: Cardiac cath on 11/30/2019 showed mild, non-obstructive CAD. - Continue ASA - Continue with home pravastatin 20mg qday (5) Benign essential hypertension: BP presently 127/77. - Monitor -> Has been ordered her home candesartan, but never brought it in, so this is off medication at present. (6) Hypothyroidism: Last TSH was 2.4 in 06/2019, but they were all stable in record. - Continue with home Synthroid 75 mcg PO daily (7) Type 2 diabetes mellitus: A1c was 6.0% in 06/2019. All priors have been quite stable in that range. - Hold metformin after contrast - Sliding scale insulin (8) DVT prophylaxis: Lovenox 40mg SQ daily Subjective Feels quite well today. No major concerns. Her breathing is better than admission. Reports no fevers/chills, chest pain, shortness of breath, abdominal pain, nausea, or vomiting. Physical Exam Constitutional: WD/WN, vitals as above Eyes: EOM intact bilaterally; no conjunctival abnormality ENMT: external ear and nose normal, oropharynx normal Neck: trachea midline, no thyromegaly normal visual inspection Respiratory: normal respiratory effort, lungs clear to auscultation no respiratory distress Cardiovascular: RRR, no murmur, no edema Gastrointestinal (Abdomen): Inspection/Auscultation: abdomen normal to inspection; abdomen not distended Musculoskeletal: no cyanosis or clubbing, extremities motor strength 5/5 Skin: no rashes, warm and dry Neurologic: moves all extremities and awake Psychiatric: Orientation: alert, oriented to person and cooperative Results & Data ([facility]) Vital Signs (Past 12 Hours) Vital Signs Temp Pulse Pulse Resp BP Pulse Ox 11/30/19 15:30 82 12 127/77 95 11/30/19 15:16 83 18 96 11/30/19 15:15 86 12 107/64 96 11/30/19 15:02 82 14 108/80 96 11/30/19 14:47 36.6 C 90 14 124/64 93 11/30/19 14:28 86 16 122/64 94 11/30/19 14:14 83 16 116/57 L 94 11/30/19 11:00 36.7 C 94 H 16 124/75 97 11/30/19 07:51 87 16 97 11/30/19 07:17 85 11/30/19 07:00 36.4 C L 92 H 18 107/67 95 PG Care Time/CCT Total # of Minutes Spent Total Time Spent with Patient: Total time spent is greater than 50% in coordination of care (as documented) at patient's floor/unit and/or counseling patient: Coding Level of Care Code 91212 Subseq Hosp Care Lvl 3 Diagnoses Hypoxia R09.02 Hypercapnic respiratory failure J96.92 Aortic stenosis I35.0 Hyperlipidemia E78.5 Benign essential hypertension I10 Hypothyroidism E03.9 Type 2 diabetes mellitus E11.9 DVT prophylaxis Z29.9
[2019-12-01] MEDS: LEVOTHYROXINE SODIUM 75 MCG TABLET PO SCH (06:20)
[2019-12-01 06:32] LABS: Hematocrit (blood only) 41.1 % (37-47); Hemoglobin 12.1 g/dL (12.0-16.0); Mean Corpuscular Hemoglobin 28.5 pg (25-34); Mean Corpuscular Hgb Conc 29.4 g/dL (32-36); Mean Corpuscular Volume 96.7 fL (80-100); Mean Platelet Volume 9.6 fL (7.4-10.4); Platelet Count 286 K/uL (130-400); RDW Coefficient of Variation 15.3 % (11.5-14.5); RDW Standard Deviation 54.2 fL (36.4-46.3); Red Blood Count 4.25 M/uL (4.2-5.4); White Blood Count 6.47 K/uL (4.8-10.8)
[2019-12-01] MEDS: ALBUT/IPRATROP 3MG/0.5MG NEB 3 ML VIAL NEB SCH (06:54)
[2019-12-01 07:15] LABS: BUN Creatinine Ratio 32.8 (10-20); Calcium 9.4 mg/dl (8.5-10.1); Creatinine Clr Calc Pharmacy 46.6 ml/min; Est GFR (African American) 72.4; Est GFR (Non-African American) 62.5
[2019-12-01] MEDS: ENOXAPARIN INJ 40 MG/0.4 ML SYR SQ SCH (07:49)
[2019-12-01] MEDS: PRAVASTATIN SOD 20 MG TAB PO SCH (07:50)
[2019-12-01] MEDS: CALCIUM 600MG + VIT D 400 IU TAB PO SCH (07:50)
[2019-12-01] MEDS: INSULIN ASPART 100 UNITS/ML 3 ML PEN SC SCH ×2 (07:50→11:52)
[2019-12-01] MEDS: PANTOprazole 40 MG TAB PO SCH (07:50)
[2019-12-01] MEDS: ASPIRIN 81 MG ECTAB PO SCH (07:50)
--- NOTE | 2019-12-01 09:04 | Cardiology Progress Note ---
Date of Service December 01, 2019 Assessment & Plan (1) Aortic stenosis: 2. Acute diastolic heart failure 3. Hypertension 4. Hypercarbic respiratory failure/suspected OHS, ASHLEY 5. Type 2 diabetes 6. Anemia 7. Minimal nonobstructive CAD Post cardiac catheterization yesterday. Minimal nonobstructive coronary artery disease. Again evidence of severe aortic stenosis. Today feeling well. Slightly worse pulmonary congestion on exam. No access site complications. From a cardiac standpoint okay with discharge today Would restart Lasix 40 mg daily today Follow-up for aortic valve replacement being arranged. Subjective Patient feeling well today. States ready to go home. Breathing improved from admission. Still struggling with cpap overnight. No significant pain at access site. Telemetry reviewedno events. Review of Systems Review of Systems: All systems reviewed & are unremarkable except as noted in HPI & below Physical Exam Physical Exam: General: Comfortable, no acute distress Lungs: crackles at bases bilaterally Cardiac: Regular rate and rhythm, 3/6 CAREN Abdomen: Soft, nontender Neuro: Nonfocal Psych: Alert orient x3, normal affect and mood Extremities/Vascular: --Right radial artery access site with minimal ecchymosis, no hematoma. Distal pulse and sensation intact. -- No edema Results & Data Vital Signs (Past 12 Hours) Vital Signs Temp Pulse Pulse Resp BP Pulse Ox 12/01/19 08:00 105 H 12/01/19 07:37 98.2 F 90 16 130/70 94 12/01/19 06:54 89 18 97 12/01/19 03:16 98.4 F 92 H 19 128/83 93 11/30/19 23:34 105 H 105 H 20 96 11/30/19 23:15 98.2 F 86 18 116/62 96 PG Care Time/CCT Total # of Minutes Spent Total Time Spent with Patient: Total time spent is greater than 50% in coordination of care (as documented) at patient's floor/unit and/or counseling patient: Coding Level of Care Code 75263 Subseq Hosp Care Lvl 2 Diagnoses Aortic stenosis I35.0
[2019-12-01] MEDS ORDERED: ALBUT/IPRATROP 3MG/0.5MG NEB 3 ML VIAL NEB PRN (09:28)
[2019-12-01] MEDS ORDERED: FUROSEMIDE 20 MG in SYRINGE 0 ML IV ONE (12:00)
--- NOTE | 2019-12-01 13:55 | Heart Failure Progress Note ---
Date of Service December 01, 2019 Assessment & Plan (1) Aortic stenosis: (2) Acute diastolic (congestive) heart failure: Patient has been referred to the [facility] heart failure program by Dr. Florez. Patient is for discharge today. Met with the patient this afternoon and discussed the heart failure program. She is agreeable. Educated patient on daily standing weights and low sodium intake. She was instructed to call the CHF program for weight gain, swelling, or worsening shortness of breath. She was given a CHF education packet to review. Follow up has been arranged for 12/07/19 at 10:30 am. She was instructed to have follow up labs drawn prior to her appointment day. Discharge weight is 171 lb. She is - 1.5 L Results & Data Vital Signs (Past 12 Hours) Vital Signs Temp Pulse Pulse Pulse Pulse Pulse Pulse 12/01/19 13:34 97.7 F 89 12/01/19 12:02 97.7 F 89 12/01/19 09:15 103 H 122 H 111 H 101 H 12/01/19 08:00 105 H 12/01/19 07:37 98.2 F 90 12/01/19 06:54 89 12/01/19 03:16 98.4 F 92 H Resp Resp Resp Resp Resp BP Pulse Ox 12/01/19 13:34 16 121/68 98 12/01/19 12:02 16 121/68 98 12/01/19 09:15 18 20 18 16 12/01/19 08:00 12/01/19 07:37 16 130/70 94 12/01/19 06:54 18 97 12/01/19 03:16 19 128/83 93 Pulse Ox Pulse Ox Pulse Ox Pulse Ox 12/01/19 13:34 12/01/19 12:02 12/01/19 09:15 93 85 L 92 91 12/01/19 08:00 12/01/19 07:37 12/01/19 06:54 12/01/19 03:16 PG Care Time/CCT Total # of Minutes Spent Total Time Spent with Patient: Total time spent is greater than 50% in coordination of care (as documented) at patient's floor/unit and/or counseling patient: Coding Level of Care Code None Diagnoses Aortic stenosis I35.0 Acute diastolic (congestive) heart failure I50.31
--- NOTE | 2019-12-01 14:26 | Discharge Summary ---
Date of Service December 01, 2019 Admission HPI Per Admitting Provider Shakira Delgado is a pleasant 79 y/o female with past medical hx of mod-severe aortic stenosis, HLD, HTN, DM2, Hypothryoid, GERD who presented from her PCP appointment for Hypoxia. She notes several months of worsening dyspnea that is worsened with exertion. She notes getting dyspneic with walking to get mail or even going from her kitchen to her living room. She sleeps on one pillow, doesn't monitor salt intake but notes she doesn't add salt to meals, denies LE edema or increase in abdomen size, but notes maybe some increase in weight gain. She states that she gets central chest pressure only with exertion for the past couple months as well. Here in the ED she had a CXR that showed pulmonary congestion and had a CTA which ruled out PE. She did receive Lasix 40mg IV x1 here in ED and notes feeling better now; family notes her facial color has improved to baseline. She is currently on 3L NC and doesn't require any supplemental O2 at baseline. She notes that she also has a frontal headache and thought she had sinusitis. She was treated for sinusitis beginning of this month with abx and steroids which didn't seem to help significantly with her frontal headache again thought to be sinusitis. Family notes 14 years ago having an episode of CHF after the [place], but patient cannot recall. She also notes that her legs have felt heavy for the past several months, but again no increase in swelling. She also notes some LE distal tingling as well. Shakira did not get the annual influenza vaccine this year. Principal Diagnosis Mild CHF exacerbation Symptomatic severe aortic stenosis Discharge Exam Constitutional WD/WN, vitals as above Eyes EOM intact bilaterally; no conjunctival abnormality ENMT external ear and nose normal, oropharynx normal Neck trachea midline, no thyromegaly normal visual inspection Respiratory normal respiratory effort, lungs clear to auscultation no respiratory distress Cardiovascular RRR, no murmur, no edema Gastrointestinal (Abdomen) Inspection/Auscultation: abdomen normal to inspection; abdomen not distended Musculoskeletal no cyanosis or clubbing, extremities motor strength 5/5 Skin no rashes, warm and dry Neurologic moves all extremities and awake Psychiatric Orientation: alert, oriented to person and cooperative Discharge Data Allergies Allergy/AdvReac Type Severity Reaction Status Date / Time adhesive Allergy Mild SKIN Verified 11/26/19 00:23 IRRITATION KINJAL Inhibitors Allergy Unknown LISTED ON Verified 11/26/19 00:23 [facility] Penicillins Allergy Unknown CAN'T Verified 11/26/19 00:23 REMEMBER Consultations 11/25/19 22:04 ED Decision to Admit Stat 11/26/19 01:19 Consult Cardiology Routine Consult Case Management - Discharge Planning Routine 11/26/19 23:04 Consult Pulmonology Routine 12/01/19 11:21 [facility] CHF Program Referral Routine Procedures Performed Operation Date: 11/30/19 13:00 Actual Procedures s Cineradiography w/Routine Exam - Gamaliel Pollard MD p Cath, Left with Cors and Vent - Gamaliel Pollard MD s Ultrasound Vascular Access - Gamaliel Pollard MD Ordered Studies 11/25/19 20:10 CT angio chest PE protocol Stat 11/30/19 12:53 CL Cath Imgs for PACS use only Stat Hospital Course (1) Hypoxia: Shakira Delgado is a pleasant 79 y/o female with past medical hx of mod-severe aortic stenosis, HLD, HTN, DM2, Hypothryoid, GERD who presented from her PCP appointment for hypoxia with values at 85%, also having central chest pressure with exertion and dyspnea worsened with exertion. - Suspect related to severe aortic stenosis and a diet over recommended daily value of sodium; fixed cardiac output causing worsening of symptoms with exertion. - Improved with IV Lasix. - Weight appears to be ~79-80 kg; weight was 83.3 kg on admission. - Echo performed on 08/08/2019: 1. Normal LV size, mod concentric LVH; 2. LVEF 60-65%, no regional wall motion abnormalities; Grade I diastolic dysfunction; 3. Normal RV size/function. 4. Moderate to severe aortic stenosis (PV 4.1, MG 37, CHELA 0.98, DI 0.38). 5. Mild aortic regurg. 6. Compared with prior 11/13/2017 slight progression in aortic stenosis. - TAVR evaluation with Senia initiated. - Dishcharged on home 2L NC. Will need outpatient follow up for overnight BiPap. - Discharged on Lasix 40mg PO daily. Counseled on daily weights. CHF referral program entered and discussed with Ingrid Velazquez who will monitor weights and symptoms. (2) Hypercapnic respiratory failure: Likely Obstructive Sleep Apnea is playing a role with Obesity hypoventilatory Syndrome. - ABG was obtained and showed hypercapnic respiratory failure. - Sleep pulse oxymetry overnight on 11/29/19 showed multiple prolonged episodes of hypoxemia. - Tried to arrange Bipap at home, but not able to do it without PFTs and/or repeated ABGs. We did arrange for pulmonary follow up who will have to pursue PFTs. (3) Aortic stenosis: Cardiac cath on 11/30 showed severe aortic stenosispeak to peak pullback gradient 76 mmHg. - Proceed with AVR evaluation as outpatient. (4) Hyperlipidemia: Cardiac cath on 11/30/2019 showed mild, non-obstructive CAD. - Continue ASA - Continue with home pravastatin 20mg qday (5) Benign essential hypertension: BP presently 127/77. - Continue candesartan (6) Hypothyroidism: Last TSH was 2.4 in 06/2019, but they were all stable in record. - Continue with home Synthroid 75 mcg PO daily (7) Type 2 diabetes mellitus: A1c was 6.0% in 06/2019. All priors have been quite stable in that range. - Hold metformin after contrast - Sliding scale insulin (8) DVT prophylaxis: Lovenox 40mg SQ daily Total Time Total Time Spent Total Time Spent (In Minutes): 35 Discharge Plan Discharge Items Patient Disposition: Home - Home Health Services Reason For Visit: HYPOXIA,CHEST PAIN Discharge Diagnosis: Severe aortic stenosis; mild CHF exacerbation Activity: Resume your previous activity Non-emergency contact: Primary Care Provider, [employer] G[employer] Farmer and Business Project Analyst Call non-emergency contact if: your symptoms worsen and your temperature is above 101 Follow-up/Referrals: Deisy Gibbons PA-C [Physician Country Director] - 12/02/19 1:00 pm (A follow-up appointment has been made on your behalf with the [facility] Pulmonology office. ) Giovana Meza PA-C [Physician Country Director] - 12/02/19 2:15 pm Ingrid Velazquez PA-C [Physician Country Director] - 12/07/19 10:30 am (Congestive Heart Failure Program Appointment Information Early follow up is essential to managing your heart failure. An appointment has been scheduled for you with the [facility] Heart Failure Program within 7 days of discharge. Anticipate this visit to be 30-60 minutes long. Please expect a director of primary phone call from one of our nurses approximately 48 hours from discharge. They will also be placing an order for lab work to be completed 1-2 days prior to your heart failure follow up appointment. Please be sure to have this done so we can go over the results when you come in. Office Location The cardiology office building is located in front of the hospital at [address] Bring the following with you to your follow-up doctor appointments: Please bring your daily weight log any discharge paperwork all of your medication bottles with you to this visit. ) Diet: Heart Healthy and Low Sodium (2gm) Addtl Attending Provider Instructions: You were admitted for shortness of breath and low oxygen levels. We gave you Lasix which helped get some of the fluid out of your lungs. Please take 1 tablet (40 mg) every day. Weigh yourself at the same time each day and write down the weight. If you gain more than 1-2 lbs in a day or 3-4 lbs in 3 days, please call Dr. Pollard's office right away. Your weight here in the hospital is 171 lbs today. Please check yourself when you get home to see what your scale at home says. We will also have a colleague of Dr. Pollard (Ingrid Velazquez) speak with you from time to time. For your heart valve, please follow up with the doctors from [place] as this can be fixed with a small procedure at their hospital. Pending Studies at Discharge: No Stand-Alone Forms: My [facility] FreeCharge, Smoking Cessation Medications and DC Order Prescriptions: New pravastatin 20 mg Tablet 20 mg PO DAILY Qty: 30 RF: 0 furosemide [Lasix] 40 mg tablet 40 mg PO DAILY Qty: 30 RF: 0 Continued levothyroxine 75 mcg tablet 75 mcg PO DAILY Qty: 90 RF: 1 metformin 500 mg Tablet 500 mg PO BIDM RF: 0 aspirin [Aspir-81] 81 mg Tablet,Delayed Release (Dr/Ec) 81 mg PO DAILY RF: 0 omeprazole 20 mg Capsule,Delayed Release(Dr/Ec) 20 mg PO DAILY RF: 0 omega 9-blc-whm-fish oil [Fish Oil] 1,000 mg (120 mg-180 mg) Capsule 3,000 mg PO DAILY RF: 0 Caltrate 600 plus D 600 mg (1,500 mg)-800 unit Tablet,Chewable 1 tab PO BID RF: 0 candesartan 16 mg tablet 16 mg PO QAM RF: 0 Discontinued ibuprofen 800 mg tablet 800 mg PO UD PRN (Reason: Pain) RF: 0 Discharge Orders: Discharge Order (Routine); Ordered 12/01/19 Ordered By: Milton Florez Admission Data Admit Date/Time: 11/26/19 00:03 Attending Provider: Milton Florez Admit Provider: Herbert Rousseau Primary Care Provider: Pasha Rushing Other Providers: Pasha Quinonez ; Naida Garcia ; Milton Florez ; Ingrid Velazquez Other Interventions: Discharge Summary Assessment (RN) Last Done: 12/01/19 13:34 Coding Level of Care Code D/C Day Management >30 mins Diagnoses Hypoxia R09.02 Hypercapnic respiratory failure J96.92 Aortic stenosis I35.0 Hyperlipidemia E78.5 Benign essential hypertension I10 Hypothyroidism E03.9 Type 2 diabetes mellitus E11.9 DVT prophylaxis Z29.9
== END 2019-12-01 14:29 | disposition home or self-care (01) | DRG 286 ==
LOC: ED 18:15 → 2W 11-26 00:03 → SUATTDRO 11-26 00:03 → 2W 11-26 00:52 → 2E 11-30 15:03

== ENCOUNTER 2023-02-11 12:49 | Inpatient (IN) ==
[2023-02-11] MEDS ORDERED: ALBUT/IPRATROP 3MG/0.5MG NEB 3 ML VIAL NEB STA (13:26)
[2023-02-11 13:30] LABS: Basophils # (auto) 0.03 K/uL (0-0.2); Basophils % (auto) 0.3 %; Eosinophils # (auto) 0.18 K/uL (0-0.50); Eosinophils % (auto) 1.8 %; Hematocrit (blood only) 38.8 % (37.0-47.0); Hemoglobin 12.5 g/dl (12.0-16.0); Immature Granulocytes # (auto) 0.06 K/uL (0.01-0.20); Immature Granulocytes % (auto) 0.6 %; Lymphocytes # (auto) 1.51 K/uL (1.2-3.4); Lymphocytes % (auto) 14.8 %; Mean Corpuscular Hemoglobin 29.4 pg (25.0-34.0); Mean Corpuscular Hgb Conc 32.2 g/dL (32.0-36.0); Mean Corpuscular Volume 91.3 fL (80.0-100.0); Mean Platelet Volume 9.7 fL (9.4-12.4); Monocytes % (auto) 8.8 %; Neutrophils # (auto) 7.53 K/uL (1.40-6.50); Neutrophils % (auto) 73.7 %; Platelet Count 275 K/uL (130-400); RDW Coefficient of Variation 14.1 % (11.5-14.5); RDW Standard Deviation 47.5 fL (36.4-46.3); Red Blood Count 4.25 M/uL (4.20-5.40); White Blood Count 10.21 K/ul (4.8-10.8)
--- NOTE | 2023-02-11 13:34 | Emergency Department Note ---
Impression & Plan Pneumonia, Hypoxia, Acute respiratory distress ED Provider Note NAME: GUERA DAMON AGE: 82 SEX: F : 1940 ARRIVES VIA: Walk-In INFORMANT: Patient, family members ED PROVIDER(S): Pasha Romano DO CHIEF COMPLAINT: Difficulty breathing HPI: The patient is an 82-year-old female who presented to the emergency department for an evaluation of difficulty breathing. She noticed worsening difficulty breathing of the course of the last 3 days. The patient notices a cough which is productive for dark sputum but no blood. She denies having any lower extremity swelling. She does complain of chest tightness. She denies having any abdominal pain. She did have a low-grade fever in her primary care physician's office. She was sent to the emergency department for further evaluation because her oxygen saturation was very low ROS: See above HPI for pertinent positives & negatives. A total of 10 systems reviewed and were otherwise negative. PAST MEDICAL HISTORY: See Below PAST SURGICAL HISTORY: See Below FAMILY HISTORY: See Below SOCIAL HISTORY: See Below HOME MEDICATIONS: See Below ALLERGIES: See Below VITALS: See Below PHYSICAL EXAMINATION: GENERAL: The patient is awake and alert. She is mildly anxious appearing. EYES: The conjunctivae are clear. The pupils are round and reactive. EARS, NOSE, MOUTH AND THROAT: The nose is without any evidence of any deformity. Mucous membranes are moist. Tongue is midline. NECK: The neck is nontender and supple. RESPIRATORY: Diminished breath sounds are noted throughout. Wheezing was noted in all lang. There was mild conversational dyspnea. CARDIOVASCULAR: Regular rate and rhythm noted there no murmurs rubs or gallops normal S1 normal S2. GASTROINTESTINAL: The abdomen is soft. Abdomen is nontender. MUSCULOSKELETAL/EXTREMITIES: There is no evidence of gross deformity full range of motion is noted in the hips and shoulders. SKIN: There is no obvious evidence of any rash. There are no petechiae, pallor or cyanosis noted. NEUROLOGIC: Patient is awake alert and oriented x3 MEDICAL DECISION MAKING: The patient is an 82-year-old female who presented to the emergency department for an evaluation of difficulty breathing. The patient was noted to have a cough as well as difficulty breathing. She had no fever here. Chest x-ray was suggestive of possible pneumonia. Given her presentation as well as the degree of hypoxia I felt she should have further radiographic studies including a CT of the chest to ensure there is no definite venous thromboembolic disease. On CT this appears to be consistent with multifocal pneumonia not pulmonary embolism. She was treated with IV fluids and IV antibiotics. She was reevaluated multiple times. Given her findings I did discuss her condition with the on-call [facility] hospitalist. They have agreed to evaluate the patient in the emergency department for further management and disposition. Triage Nursing notes reviewed. Prior medical records reviewed Vital Signs: reviewed and remarkable for hypoxia. Differential diagnosis: Reactive airway disease, pneumonia, pneumothorax, COPD, CHF, infections, cardiac ischemia, pulmonary embolism, musculoskeletal, gastrointestinal, as well as other pathologies. ER treatment provided: See below Diagnostics interpreted by me: ECG: EKG was obtained in the emergency department. My interpretation is sinus tachycardia 109 bpm. PVCs were noted. There is diffuse ST abnormalities with T wave versions in the high lateral leads. This was compared to a tracing from November 25, 2019. There was an increase in the rate otherwise no changes were noted. Cardiac Monitoring: An order was placed for continuous cardiac monitoring. The monitor shows a rate of 93 bpm with sinus rhythm. Laboratory studies: As stated above and show below. Imaging studies: See below. Radiographic imaging was reviewed by myself Consultation(s): I discussed this case with Dr. Gordon who is on-call for the [facility] Hospitalist group. ED COURSE: Procedures: none Critical Care: I have personally spent greater than 35 minutes of critical care time in the direct management of this patient. This includes bedside care, interpretation of diagnostic studies, and testing, discussion with consultants, patient, and family members, and other required patient management activities. This 35 minutes is in excess of all separately billable procedures. 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 Type 2 diabetes mellitus Surgical History History of surgical removal of ganglion cyst Left wrist History of tubal ligation Family History Father Dementia Mother Lung cancer Grandmother Heart disease Other Family history non-contributory Denies family history of Ovarian cancer Prostate cancer Myocardial infarction Breast cancer Colorectal cancer Stroke Social History Smoking Status: Never smoker Second Hand Exposure: Yes ( smoked); Hx Alcohol Use: No Hx Substance Use: No Preferred Language: Georgian Communication Ability: Effective Visual Impairment: Limited Hearing Ability: Use of Hearing Aid Pie Maker Required: No Beliefs That Will Affect Care: None marital status: Current Living Situation: Spouse Current Living Situation Comment: house current occupational status: retired How many Children do You have: 6 How many Children do You have Comment: 2 boys 4 girls Feels Safe at Home: Yes Childhood Exposure to Second-Hand Smoke: Yes during the past year weight has: remained stable Dental Care, Regularly: Yes Physical Activity Frequency: Does not Exercise Seatbelt Use: always Assistive Devices: Oxygen - Continuous Allergies Allergies Allergy/AdvReac Type Severity Reaction Status Date / Time adhesive Allergy Mild SKIN Verified 02/11/23 11:25 IRRITATION KINJAL Inhibitors Allergy Unknown LISTED ON Verified 02/11/23 11:25 MNPG Penicillins Allergy Unknown CAN'T Verified 02/11/23 11:25 REMEMBER Home Meds Home Medications Medication Instructions Recorded Confirmed calcium carbonate 600 mg-vitamin 1 tab PO BID 12/22/18 02/11/23 D3 20 mcg (800 unit) chewable tablet (Caltrate 600 plus D) omeprazole 20 mg capsule,delayed 20 mg PO QAM 12/22/18 02/11/23 release Oxygen Home #1 ea 01/20/20 02/11/23 omega 1-lyv-vch-fish oil 1,000 mg 1 cap PO AMHS 08/09/20 02/11/23 (120 mg-180 mg) capsule (Fish Oil) metformin 500 mg tablet 500 mg PO QAM 05/08/22 02/11/23 aspirin 81 mg tablet,delayed 81 mg PO HS 02/11/23 02/11/23 release levothyroxine 75 mcg tablet 75 mcg PO DAILYBB 02/11/23 02/11/23 mecobalamin (vitamin B12) 1,000 1,000 mcg sublingual QAM 02/11/23 02/11/23 mcg disintegrating tablet,sublingual pravastatin 40 mg tablet 40 mg PO HS 02/11/23 02/11/23 Previous Rx's Medication Instructions Recorded candesartan 16 mg tablet 16 mg PO QAM #90 tabs 09/07/22 azelastine 137 mcg (0.1 %) nasal 137 mcg (0.137 mL) intranasal BID 01/25/23 spray aerosol #30 mL Results & Data (ED) Vital Signs Vital Signs - 24 hr 02/11/23 12:50 02/11/23 15:14 02/11/23 15:51 Temperature 37.2 C Temperature Source Temporal Artery Scan Pulse Rate 110 H Pulse Rate [Left Finger] 78 103 H Respiratory Rate 22 24 24 Blood Pressure 174/82 H Blood Pressure [Left Arm] 134/76 148/72 H Blood Pressure Mean 112 Blood Pressure Mean [Left Arm] 95 97 Blood Pressure Position [Left Arm] Lying Pulse Oximetry 93 97 94 Oxygen Delivery Method Nasal Cannula Room Air Nasal Cannula Oxygen Flow Rate 2 2 Sepsis Recent Fever Within 48 Hours No Sepsis New/Unexplained Change in Mental Status No Sepsis Action Taken by Nursing Physician Notified 02/11/23 16:25 02/11/23 17:20 Temperature Temperature Source Pulse Rate 100 H Pulse Rate [Left Finger] 93 H Respiratory Rate 22 Blood Pressure Blood Pressure [Left Arm] 115/76 Blood Pressure Mean Blood Pressure Mean [Left Arm] 89 Blood Pressure Position [Left Arm] Pulse Oximetry 94 Oxygen Delivery Method Oxygen Flow Rate Sepsis Recent Fever Within 48 Hours Sepsis New/Unexplained Change in Mental Status Sepsis Action Taken by Jail Medications Current Medication List: was personally reviewed by me Laboratory Data Attestation: I reviewed the patient's lab results. 02/11/23 12:24 02/11/23 12:24 Lab Results 02/11/23 02/11/23 02/11/23 Range/Units 12:24 12:24 12:24 WBC 10.21 (4.8-10.8) K/ul RBC 4.25 (4.20-5.40) M/uL Hgb 12.5 (12.0-16.0) g/dl Hct 38.8 (37.0-47.0) % MCV 91.3 (80.0-100.0) fL MCH 29.4 (25.0-34.0) pg MCHC 32.2 (32.0-36.0) g/dL RDW Std Deviation 47.5 H (36.4-46.3) fL RDW Coeff of Julieta 14.1 (11.5-14.5) % Plt Count 275 (130-400) K/uL MPV 9.7 (9.4-12.4) fL Immature Gran % (Auto) 0.6 % Neut % (Auto) 73.7 % Lymph % (Auto) 14.8 % [place] % (Auto) 8.8 % Eos % (Auto) 1.8 % Baso % (Auto) 0.3 % Neut # (Auto) 7.53 H (1.40-6.50) K/uL Lymph # (Auto) 1.51 (1.2-3.4) K/uL [place] # (Auto) 0.90 H (0.11-0.59) K/uL Eos # (Auto) 0.18 (0-0.50) K/uL Baso # (Auto) 0.03 (0-0.2) K/uL Immature Gran # (Auto) 0.06 (0.01-0.20) K/uL PT 10.9 (9.0-12.0) Seconds INR 1.0 (0.9-1.1) APTT 28.3 (21.0-31.0) Seconds PTT Ratio 1.0 VBG pH (7.36-7.41) VBG pCO2 (38-50) mmHg VBG pO2 mmHg VBG HCO3 mmol/L VBG O2 Saturation % VBG Base Excess mEq/L Sodium 137 (136-145) mmol/L Potassium 4.3 (3.5-5.1) mmol/L Chloride 102 (98-107) mmol/L Carbon Dioxide 28 (21-32) mmol/L Anion Gap 7 (3-11) BUN 19 (6-23) mg/dl Creatinine 1.14 (0.6-1.2) mg/dl Est Cr Clr Drug Dosing 36.6 ml/min Est GFR ( Amer) 51.9 ml/min Est GFR (Non-Af Amer) 44.7 ml/min BUN/Creatinine Ratio 16.7 (10-20) Glucose 109 H (70-99(Fasting)) mg/dl Calcium 9.1 (8.6-10.3) mg/dl Magnesium 2.0 (1.7-2.4) mg/dl Total Bilirubin 0.5 (0.2-1.0) mg/dl AST 20 (13-39) U/L ALT 14 (7-52) U/L Alkaline Phosphatase 57 (34-104) U/L Troponin I High Sens 13.7 (0-14) pg/ml Total Protein 7.2 (6.0-8.3) gm/dl Albumin 4.0 (3.4-5.0) gm/dl Globulin 3.2 (2.5-4.0) gm/dl Albumin/Globulin Ratio 1.3 (0.9-2) SARS-CoV-2 (PCR) (Negative) Influenza Type A (PCR) (Neg) Influenza Type B (PCR) (Neg) RSV (RT-PCR) (Neg) 02/11/23 02/11/23 Range/Units 13:42 13:59 WBC (4.8-10.8) K/ul RBC (4.20-5.40) M/uL Hgb (12.0-16.0) g/dl Hct (37.0-47.0) % MCV (80.0-100.0) fL MCH (25.0-34.0) pg MCHC (32.0-36.0) g/dL RDW Std Deviation (36.4-46.3) fL RDW Coeff of Julieta (11.5-14.5) % Plt Count (130-400) K/uL MPV (9.4-12.4) fL Immature Gran % (Auto) % Neut % (Auto) % Lymph % (Auto) % [place] % (Auto) % Eos % (Auto) % Baso % (Auto) % Neut # (Auto) (1.40-6.50) K/uL Lymph # (Auto) (1.2-3.4) K/uL [place] # (Auto) (0.11-0.59) K/uL Eos # (Auto) (0-0.50) K/uL Baso # (Auto) (0-0.2) K/uL Immature Gran # (Auto) (0.01-0.20) K/uL PT (9.0-12.0) Seconds INR (0.9-1.1) APTT (21.0-31.0) Seconds PTT Ratio VBG pH 7.36 (7.36-7.41) VBG pCO2 60 H (38-50) mmHg VBG pO2 47 mmHg VBG HCO3 34 mmol/L VBG O2 Saturation 78.4 % VBG Base Excess 6.5 mEq/L Sodium (136-145) mmol/L Potassium (3.5-5.1) mmol/L Chloride (98-107) mmol/L Carbon Dioxide (21-32) mmol/L Anion Gap (3-11) BUN (6-23) mg/dl Creatinine (0.6-1.2) mg/dl Est Cr Clr Drug Dosing ml/min Est GFR ( Amer) ml/min Est GFR (Non-Af Amer) ml/min BUN/Creatinine Ratio (10-20) Glucose (70-99(Fasting)) mg/dl Calcium (8.6-10.3) mg/dl Magnesium (1.7-2.4) mg/dl Total Bilirubin (0.2-1.0) mg/dl AST (13-39) U/L ALT (7-52) U/L Alkaline Phosphatase (34-104) U/L Troponin I High Sens (0-14) pg/ml Total Protein (6.0-8.3) gm/dl Albumin (3.4-5.0) gm/dl Globulin (2.5-4.0) gm/dl Albumin/Globulin Ratio (0.9-2) SARS-CoV-2 (PCR) NEGATIVE (Negative) Influenza Type A (PCR) Negative (Neg) Influenza Type B (PCR) Negative (Neg) RSV (RT-PCR) Negative (Neg) Administered Medications Discontinued Medications Albuterol (Albut/Ipratrop 3mg/0.5mg Neb 3 Ml Vial) 3 ml NEB NOW STA; Protocol Stop: 02/11/23 13:27 Last Admin: 02/11/23 13:40 Dose: 3 ml Documented By: DAWN Ceftriaxone Sodium (Rocephin) 2,000 mg in 70 mls @ 140 mls/hr IV NOW STA Stop: 02/11/23 16:44 Last Admin: 02/11/23 16:26 Dose: 140 mls/hr Documented By: DEONTE Sodium Chloride (Nss 1000ml) 1,000 mls @ 999 mls/hr IV .Q1H1M ONE Stop: 02/11/23 17:35 Last Admin: 02/11/23 17:11 Dose: 999 mls/hr Documented By: DEONTE Ioversol (Optiray 320 500ml) 106 ml IV ONCE ONE Stop: 02/11/23 16:13 Last Admin: 02/11/23 16:13 Dose: 106 ml Documented By: AW Imaging Data Attestation: I personally reviewed and interpreted this imaging study as follows: My Impression: 1 view chest x-ray was obtained in the emergency department. My interpretation is left-sided infiltrate, no free air, final report below. Radiologist's Impression: Chest X-Ray 02/11/23 12:59 XR chest 1V portable HISTORY: 82 years-old Female Chest pain, nonspecific acute chest pain COMPARISON: 11/26/2019 TECHNIQUE: AP view of the chest FINDINGS: Cardiac silhouette is enlarged. Aortic valvular endograft. Atherosclerosis of the aorta. Pulmonary vascular congestion with mild asymmetric left suprahilar airspace opacities. No pneumothorax. Trace pleural effusions suggested. Degenerative changes of the shoulders and spine. IMPRESSION: 1. Cardiomegaly with pulmonary vascular congestion. 2. Mild asymmetric left suprahilar airspace opacities. Correlate clinically to exclude pneumonia. ACT 112: Negative or not required by law. The above report was generated using voice recognition software. It may contain grammatical, syntax or spelling errors. Electronically signed by: Yves Garcia M.D. 02/11/2023 2:50 PM Chest CTA 02/11/23 14:51 CT angio chest PE protocol CLINICAL HISTORY: PE TECHNIQUE: Multidetector row helical CT of the chest was performed with ang iographic protocol. Coronal and sagittal reformations were obtained. Coronal and sagittal MIPS were obtained from the axial data set and were submitted for review. Automated dose lowering techniques and/or adjustment according to patient size were utilized for this exam. CT DOSE: 509.73 mGycm Comparison: Comparison is made to CT chest 11/25/2019 FINDINGS: Lungs and pleura: Bronchial wall thickening is seen. Interval development of airspace opacities in the left upper and lower lobes. Heart and pericardium: Aortic valvular calcifications are seen. Mild atheroscler otic calcifications are seen. Vessels: No evidence of pulmonary embolism. Mediastinum and jon: Mediastinal lymph nodes measure up to 12 mm in short axis. Left hilar subcentimeter nodes are also seen. Chest wall and lower neck: Unremarkable. Abdomen: Cholelithiasis is seen without evidence of cholecystitis. Bones: Degenerative changes in the thoracic spine. IMPRESSION: No pulmonary embolus is seen. Multifocal airspace opacities are seen compatible with pneumonia, bronchial wall thickening may represent airways disease as well. Mediastinal lymph nodes are enlarged and likely reactive. ACT 112: Negative or not required by law. Electronically signed by: Jay Jerome M.D. 02/11/2023 4:26 PM Discharge Plan Visit Data Chief Complaint: Referred by Doctor Stated Complaint: REF BY DOC,HAS A COLD,SOB ED Provider: Pasha Romano Discharge Problem: Pneumonia, Hypoxia, Acute respiratory distress Patient Disposition: Admitted As Inpatient Discharge Instructions Interventions: ED Discharge Assessment Last Done: 02/11/23 17:53 Forms Stand Alone Forms: My [employer] Prescriptions Prescriptions: No Action candesartan 16 mg tablet 16 mg PO QAM Qty: 90 3RF (DME) Oxygen Home Liters Per Minute See Rx Instructions .ROUTE .MEDSUPPLY Qty: 1 Rx Instructions: 2 Liters prn metformin 500 mg tablet 500 mg PO QAM Dose Instruction: TAKE 1 TABLET TWICE A DAY Rx Instructions: TAKE 1 TABLET A DAY azelastine 137 mcg (0.1 %) aerosol,spray 137 mcg intranasal BID Qty: 30 2RF Rx Instructions: administer into each nostril omeprazole 20 mg Capsule,Delayed Release(Dr/Ec) 20 mg PO QAM Caltrate 600 plus D 600 mg (1,500 mg)-800 unit Tablet,Chewable 1 tab PO BID omega 9-hom-iqc-fish oil [Fish Oil] 1,000 mg (120 mg-180 mg) capsule 1 cap PO AMHS aspirin [Aspirin Low-Strength] 81 mg Tablet,Delayed Release (Dr/Ec) 81 mg PO HS mecobalamin (vitamin B12) 1,000 mcg tablet,disintegrating 1,000 mcg sublingual QAM Rx Instructions: place tablet under tongue and allow to dissolve for at least30 secs before swallowing levothyroxine 75 mcg tablet 75 mcg PO DAILYBB pravastatin 40 mg tablet 40 mg PO HS Referrals Referrals: Pasha Rushing MD [Primary Care Provider] -
[2023-02-11 13:46] LABS: Albumin Globulin Ratio 1.3 (0.9-2); BUN Creatinine Ratio 16.7 (10-20); Bilirubin,Total 0.5 mg/dl (0.2-1.0); Calcium 9.1 mg/dl (8.6-10.3); Creatinine Clr Calc Pharmacy 36.6 ml/min; Est GFR (African American) 51.9 ml/min; Est GFR (Non-African American) 44.7 ml/min; Globulin 3.2 gm/dl (2.5-4.0); Potassium 4.3 mmol/L (3.5-5.1); Total Protein 7.2 gm/dl (6.0-8.3)
[2023-02-11 13:53] LABS: Troponin I High Sensitivity 13.7 pg/ml (0-14)
[2023-02-11 13:54] LABS: Partial Thromboplastin Time 28.3 Seconds (21.0-31.0); Prothrombin Time 10.9 Seconds (9.0-12.0)
[2023-02-11 14:12] LABS: Base Excess VBG 6.5 mEq/L; HCO3 VBG 34 mmol/L; Oxygen Saturation VBG 78.4 %; PCO2 VBG 60 mmHg (38-50); PO2 VBG 47 mmHg; pH VBG 7.36 (7.36-7.41)
[2023-02-11 14:35] LABS: Influenza A virus by PCR Negative (Neg); Influenza B virus by PCR Negative (Neg); RSV by PCR Negative (Neg); SARS CoV2 RNA(COVID-19) Ceph NEGATIVE (Negative)
--- NOTE | 2023-02-11 14:51 | XRay Report ---
XR chest 1V portable HISTORY: 82 years-old Female Chest pain, nonspecific acute chest pain COMPARISON: 11/26/2019 TECHNIQUE: AP view of the chest FINDINGS: Cardiac silhouette is enlarged. Aortic valvular endograft. Atherosclerosis of the aorta. Pulmonary va scular congestion with mild asymmetric left suprahilar airspace opacities. No pneumothorax. Trace ple ural effusions suggested. Degenerative changes of the shoulders and spine. IMPRESSION: 1. Cardiomegaly with pulmonary vascular congestion. 2. Mild asymmetric left suprahilar airspace opacities. Correlate clinically to exclude pneumonia. ACT 112: Negative or not required by law. The above report was generated using voice recognition software. It may contain grammatical, syntax o r spelling errors. Electronically signed by: Yves Garcia M.D. 02/11/2023 2:50 PM
[2023-02-11] MEDS ORDERED: OPTIRAY 320 500ml IV ONE (16:12)
[2023-02-11] MEDS ORDERED: cefTRIAXone SODIUM 2,000 MG/70 ML BAG IV STA (16:15)
--- NOTE | 2023-02-11 16:28 | CT Scan Report ---
CT angio chest PE protocol CLINICAL HISTORY: PE TECHNIQUE: Multidetector row helical CT of the chest was performed with angiographic protocol. Maloney l and sagittal reformations were obtained. Coronal and sagittal MIPS were obtained from the axial christian a set and were submitted for review. Automated dose lowering techniques and/or adjustment according to patient size were utilized for this exam. CT DOSE: 509.73 mGycm Comparison: Comparison is made to CT chest 11/25/2019 FINDINGS: Lungs and pleura: Bronchial wall thickening is seen. Interval development of airspace opacities in th e left upper and lower lobes. Heart and pericardium: Aortic valvular calcifications are seen. Mild atherosclerotic calcifications a re seen. Vessels: No evidence of pulmonary embolism. Mediastinum and jon: Mediastinal lymph nodes measure up to 12 mm in short axis. Left hilar subcentim eter nodes are also seen. Chest wall and lower neck: Unremarkable. Abdomen: Cholelithiasis is seen without evidence of cholecystitis. Bones: Degenerative changes in the thoracic spine. IMPRESSION: No pulmonary embolus is seen. Multifocal airspace opacities are seen compatible with pneumonia, bronchial wall thickening may repre sent airways disease as well. Mediastinal lymph nodes are enlarged and likely reactive. ACT 112: Negative or not required by law. Electronically signed by: Jay Jerome M.D. 02/11/2023 4:26 PM
[2023-02-11] MEDS ORDERED: SODIUM CHLORIDE 0.9% 1000ML 1,000 ML IV ONE (16:35)
--- NOTE | 2023-02-11 17:15 | History & Physical Report ---
Date of Service February 11, 2023 Assessment & Plan (1) CAP (community acquired pneumonia): Plan: Multifocal pneumonia COVID/flu/RSV negative CTA showed multifocal opacities consistent with pneumonia, no evidence of PE No leukocytosis Continue treatment of CAP, multifocal with Rocephin/azithromycin for atypical coverage EKG with QTc 460, sinus tachycardia with PVCs. QT prolongation not present. Hypertension Continue candesartan Type II DM Home metformin held with recent contrast use Basal bolus SSIglucose checks AC/at bedtime Goal BSG [id number] Hypothyroidism Continue Synthroid ASHLEY - CPAP DVT prophylaxis: Lovenox Diet: Type II DM Disposition: Medical surgical CODE STATUS: Full code (2) Sleep apnea: (3) Chronic diastolic congestive heart failure: (4) Current use of proton pump inhibitor: (5) Type 2 diabetes mellitus: History of Present Illness Primary Care Provider: Pasha Rushing MD Shakira is an 82-year-old female with a past medical history of type II DM, PVD, sleep apnea, diastolic CHF who presents with shortness of breath. CTA on admission shows no PE, but multifocal airspace opacities suspicious for pneumonia. Saturday worsening breathing, wheezing. Does not use home oxygen. Has it after had transient hypoxia post srugery 'just in case' but has not needed. Uses with exertion PRN. Denies COPD, asthma. No hx of tobacco use but was a very heavy smoker in the past, never had PFTs. Cold yesterday, fevers in the office ~100.8F Coughing up light yellow Hx of heart murmur, no hx of DC/CAD. Post TAVR for severe , doing well since ASA for primary ppx with HTN. Took medicines this morning. Denies history of DC, stroke. Denies history of kidney disease. Medical History: Reviewed Medications: Reviewed past PCN, no recent allergies. Tolerated rocephin Surgical History: Reviewed Family history: Reviewed Allergies: Reviewed Social History: REviewed, second hadn smoke exposure Code Status: Full code Allergies Allergy/AdvReac Type Severity Reaction Status Date / Time adhesive Allergy Mild SKIN Verified 02/11/23 11:25 IRRITATION KINJAL Inhibitors Allergy Unknown LISTED ON Verified 02/11/23 11:25 MNPG Penicillins Allergy Unknown CAN'T Verified 02/11/23 11:25 REMEMBER Home Medications Medication Instructions Recorded Confirmed Type calcium carbonate 600 mg-vitamin 1 tab PO BID 12/22/18 02/11/23 History D3 20 mcg (800 unit) chewable tablet (Caltrate 600 plus D) omeprazole 20 mg capsule,delayed 20 mg PO QAM 12/22/18 02/11/23 History release Oxygen Home #1 ea 01/20/20 02/11/23 History omega 7-mec-fpv-fish oil 1,000 mg 1 cap PO AMHS 08/09/20 02/11/23 History (120 mg-180 mg) capsule (Fish Oil) metformin 500 mg tablet 500 mg PO QAM 05/08/22 02/11/23 History candesartan 16 mg tablet 16 mg PO QAM #90 tabs 09/07/22 02/11/23 Rx azelastine 137 mcg (0.1 %) nasal 137 mcg (0.137 mL) intranasal BID 01/25/23 02/11/23 Rx spray aerosol #30 mL aspirin 81 mg tablet,delayed 81 mg PO HS 02/11/23 02/11/23 History release levothyroxine 75 mcg tablet 75 mcg PO DAILYBB 02/11/23 02/11/23 History mecobalamin (vitamin B12) 1,000 1,000 mcg sublingual QAM 02/11/23 02/11/23 History mcg disintegrating tablet,sublingual pravastatin 40 mg tablet 40 mg PO HS 02/11/23 02/11/23 History Past Med/Surg History Medical History Acute diastolic (congestive) heart failure Aortic stenosis Benign essential hypertension Dermatitis Generalized osteoarthritis of multiple sites Hypercapnic respiratory failure Hyperlipidemia Hypothyroidism Hypoxemia No pertinent past medical history 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 Type 2 diabetes mellitus Surgical History History of surgical removal of ganglion cyst Left wrist History of tubal ligation Family History Father Dementia Mother Lung cancer Grandmother Heart disease Other Family history non-contributory Denies family history of Ovarian cancer Prostate cancer Myocardial infarction Breast cancer Colorectal cancer Stroke Social History Smoking Status: Never smoker Second Hand Exposure: Yes ( smoked); Hx Alcohol Use: No Hx Substance Use: No Preferred Language: Trinidadian Communication Ability: Effective Visual Impairment: Limited Hearing Ability: Use of Hearing Aid 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 Beliefs That Will Affect Care: None marital status: Current Living Situation: Spouse Current Living Situation Comment: house current occupational status: retired How many Children do You have: 6 How many Children do You have Comment: 2 boys 4 girls Feels Safe at Home: Yes Childhood Exposure to Second-Hand Smoke: Yes during the past year weight has: remained stable Dental Care, Regularly: Yes Physical Activity Frequency: Does not Exercise Seatbelt Use: always Assistive Devices: Oxygen - Continuous Review of Systems Review of Systems: All systems reviewed & are unremarkable except as noted in HPI & below Physical Exam Physical Exam: General: A&Ox3. NAD. Cooperative. HEENT: Atraumatic, normocephalic. Pulm: Diffusely coarse, expiratory wheeze. Bibasilar crackles. Symmetrical chest rise. No increased work of breathing. No respiratory distress. Cardiac: Regular, tachycardic.-mrg. Radial pulses intact and symmetrical. Abdominal: Nontender, nondistended, soft. BS present. Extremities: Warm, dry. Moving all extremities equally. Results & Data Results & Data Vital Signs (Past 12 Hours) Vital Signs Temp Pulse Pulse Resp BP BP Pulse Ox 02/11/23 16:25 100 H 02/11/23 15:51 103 H 24 148/72 H 94 02/11/23 15:14 78 24 134/76 97 02/11/23 12:50 37.2 C 110 H 22 174/82 H 93 O2 Del Method O2 Flow Rate 02/11/23 16:25 02/11/23 15:51 Nasal Cannula 2 02/11/23 15:14 Room Air 02/11/23 12:50 Nasal Cannula 2 PG Care Time/CCT Total # of Minutes Spent Total Time Spent with Patient: Total time spent is greater than 50% in coordination of care (as documented) at patient's floor/unit and/or counseling patient: Coding Level of Care Code 17399 INT INP/OBS CARE 2/55MIN Diagnoses CAP (community acquired pneumonia) J18.9 Sleep apnea G47.30 Chronic diastolic congestive heart failure I50.32 Current use of proton pump inhibitor Z79.899 Type 2 diabetes mellitus E11.9
--- NOTE | 2023-02-11 17:52 | Electrocardiogram Report ---
Test Reason : Blood Pressure : / mmHG Vent. Rate : 109 BPM Atrial Rate : 109 BPM P-R Int : 164 ms QRS Dur : 078 ms QT Int : 342 ms P-R-T Axes : 052 009 085 degrees QTc Int : 460 ms Poor data quality, interpretation may be adversely affected Sinus tachycardia with occasional Premature ventricular complexes Low voltage QRS Borderline ECG When compared with ECG of 25-NOV-2019 18:25, No significant change was found Confirmed by Brad Matthews ([id number]) on 02/11/2023 5:51:44 PM Referred By: Aundrea Jaime Confirmed By:Jose Matthews
[2023-02-11] MEDS ORDERED: GLUCAGON FOR INJ 1 MG VIAL SQ PRN (18:39)
[2023-02-11] MEDS ORDERED: GLUCOSE 40% GEL 15 GM TUBE PO PRN (18:39)
[2023-02-11] MEDS ORDERED: CARBOHYDRATES FOR HYPOGLYCEMIA PO PRN (18:39)
[2023-02-11] MEDS ORDERED: GLUCOSE 10 TAB/TUBE PO PRN (18:39)
[2023-02-11] MEDS ORDERED: DEXTROSE 50% 50 ML SYRINGE IV PRN (18:39)
[2023-02-11] MEDS ORDERED: AZITHROMYCIN 500 MG in DEXTROSE 5% 250 ML IV ONE (19:00)
[2023-02-11] MEDS: ASPIRIN 81 MG ECTAB PO SCH (19:35)
[2023-02-11] MEDS: PRAVASTATIN SOD 40 MG TAB PO SCH (19:35)
[2023-02-11] MEDS: INSULIN ASPART PER UNIT CHARGE SC SCH (21:36)
[2023-02-11] MEDS: LANTUS PER UNIT CHARGE SQ SCH (21:36)
[2023-02-11] MEDS: ACETAMINOPHEN 325 MG TAB PO PRN (21:42)
[2023-02-12 04:27] LABS: A calco-baum cmplx NotReported Not Detected (NotDetected); Bact fragilis Not Reported Not Detected (NotDetected); C auris Not Reported Not Detected (NotDetected); Calbicans Not Reported Not Detected (NotDetected); Candida glabrata Not Reported Not Detected (NotDetected); Candida krusei Not Reported Not Detected (NotDetected); Cneoformans/gatti Not Reported Not Detected (NotDetected); Cparapsilosis Not Reported Not Detected (NotDetected); Ctropicalis Not Reported Not Detected (NotDetected); E cloacae compx Not Reported Not Detected (NotDetected); Efaecalis Not Reported Not Detected (NotDetected); Efaecium Not Reported Not Detected (NotDetected); Enterobacterales Not Reported Not Detected (NotDetected); Escherichia coli Not Reported Not Detected (NotDetected); H influenzae Not Reported Not Detected (NotDetected); K aerogenes Not Reported Not Detected (NotDetected); Koxytoca Not Reported Not Detected (NotDetected); Kpneumoniae grp Not Reported Not Detected (NotDetected); Lmonocyt Not Reported Not Detected (NotDetected); N meningitidis Not Reported Not Detected (NotDetected); P aeruginosa Not Reported Not Detected (NotDetected); Proteus spp Not Reported Not Detected (NotDetected); Salmonella spp Not Reported Not Detected (NotDetected); Smarcescens Not Reported Not Detected (NotDetected); Staph lugdunensis Not Reported Not Detected (NotDetected); Staph spp. Not Reported DETECTED (NotDetected); Staphaureus Not Reported DETECTED (NotDetected); Staphepi Not Reported Not Detected (NotDetected); Stenmaltophilia Not Reported Not Detected (NotDetected); Strep agal(GrpB) Not Reported Not Detected (NotDetected); Strep pneum Not Reported Not Detected (NotDetected); Strep pyog (GrpA) Not Reported Not Detected (NotDetected); Strep spp Not Reported Not Detected (NotDetected)
[2023-02-12 04:39] LABS: Staphylococcus spp. DETECTED (NotDetected); mecAC+MREJ Resistant Gene MRSA DETECTED (NotDetected)
[2023-02-12] MEDS: LEVOTHYROXINE SODIUM 75 MCG TABLET PO SCH (05:14)
[2023-02-12] MEDS ORDERED: VANCOMYCIN CONSULT ACTIVE PRN (05:33)
--- NOTE | 2023-02-12 05:39 | Communication Note ---
Date of Service: February 12, 2023 Notified by nurse about 1/2 blood culture positive for MRSA. Placed vancomycin consult. Resident Activity Tracking Resident Involvement: Resident Care Provided and Pest Control Service Representative Coverage Note Care Provided: Adult Hospital Medicine
[2023-02-12] MEDS ORDERED: VANCOMYCIN HCL 1,500 MG in SODIUM CHLORIDE 0.9% 500 ML IV ONE (06:00)
[2023-02-12 06:35] LABS: Basophils # (auto) 0.03 K/uL (0-0.2); Basophils % (auto) 0.3 %; Eosinophils % (auto) 5.9 %; Hematocrit (blood only) 38.1 % (37.0-47.0); Hemoglobin 12.2 g/dl (12.0-16.0); Immature Granulocytes # (auto) 0.04 K/uL (0.01-0.20); Immature Granulocytes % (auto) 0.4 %; Lymphocytes # (auto) 1.45 K/uL (1.2-3.4); Lymphocytes % (auto) 14.3 %; Mean Corpuscular Hemoglobin 29.5 pg (25.0-34.0); Monocytes % (auto) 9.9 %; Neutrophils # (auto) 6.99 K/uL (1.40-6.50); Neutrophils % (auto) 69.2 %; Platelet Count 281 K/uL (130-400); RDW Coefficient of Variation 14.1 % (11.5-14.5); Red Blood Count 4.14 M/uL (4.20-5.40); White Blood Count 10.11 K/ul (4.8-10.8)
[2023-02-12 06:49] LABS: BUN Creatinine Ratio 16.3 (10-20); Calcium 9.1 mg/dl (8.6-10.3); Est GFR (African American) 57.9 ml/min
[2023-02-12] MEDS: LOSARTAN POTASSIUM 50 MG TAB PO SCH (08:32)
[2023-02-12] MEDS: LANTUS PER UNIT CHARGE SQ SCH ×2 (08:33→21:17)
[2023-02-12] MEDS: INSULIN ASPART PER UNIT CHARGE SC SCH ×4 (08:35→21:17)
[2023-02-12] MEDS ORDERED: AZITHROMYCIN 250 MG in DEXTROSE 5% 250 ML IV SCH (09:00)
--- NOTE | 2023-02-12 10:03 | Pharmacy Report ---
Pharmacy PK ABX Note - Date of Service February 12, 2023 - Assessment and Plan Assessment 82 year old F receiving vancomycin, rocephin and azithromycin for possible pneumonia/bacteremia. Serology for blood cultures positive for MRSA Day # 1 of antimicrobial therapy. Plan Vancomycin * Patient given loading dose of vancomycin 1500 mg x 1 this AM (~21 mg/kg/dose) * Will start vancomycin 1250 mg iv q 24 hours. This dosing is estimated to achieve a trough level of ~17 mcg/ml, AUC/SULEMAN of 400-600 and may be associated with toxicity of ~13% * Will plan to order a random vancomycin level tomorrow to assess dosing and to ensure therapeutic Pharmacy has transitioned to AUC monitoring for vancomycin. AUC/SULEMAN is the preferred PK/PD target and is associated with decreased risk of nephrotoxicity compared to traditional trough targets.
--- NOTE | 2023-02-12 11:51 | Hospitalist Progress Note ---
Date of Service February 12, 2023 Assessment & Plan (1) CAP (community acquired pneumonia): Plan: Pneumonia with acute hypoxic respiratory failure - high risk COVID/flu/RSV negative CTA showed multifocal opacities consistent with pneumonia, no evidence of PE No leukocytosis or fever For PNA, continued on treatment of CAP, multifocal with Rocephin/azithromycin for atypical coverage - Add Mucinex, Duonebs QIDR and q2 prn d/t acute bronchospasm and ordered a dose of Solumedrol 125mg IVx1 - For her hypoxic respiratory failure, continue supplemental O2 with a goal pulse ox >90%, wean as able (2) Bacteremia: Plan: Acute/unstable - high risk - 1/2 blood cultures positive for GPC in clusters c/w staph, PCR = MRSA - Source is unknown - d/w ID (Dr. Reddy), formal consult placed - Obtain TTE - IV Vancomycin initiated overnight, continue - Follow second set of blood cultures which is pending currently (3) Type 2 diabetes mellitus: Plan: Chronic/stable - On Metformin at home, held d/t contrast admin - started on basal/bolus - Continue accuchecks ac/hs - DMT2 diet (4) Benign essential hypertension: Plan: Chronic/stable - HTN, HLD, h/o TAVR in 2019 - Continue Candesartan, Atorvastatin, and ASA (5) Sleep apnea: Plan: Chronic/stable - Continue cpap (6) Hypothyroidism: Plan: Chronic/stable - Continue levothyroxine Plan Add Lovenox for DVT ppx. Stop Zithromax. Repeat labs in AM. Above plan of care to be d/w Dr. Lovell. Admission and Anticipated Discharge Date Admission Date: February 11, 2023 Subjective Patient was seen on daily rounds this morning. She is resting comfortably in bedside chair and offers no complaints. She reports that her breathing has improved, she has a dry cough but feels that she needs to bring up mucus. She denies cp or dyspnea at present. No h/o underlying lung disease or recurrent bronchitis. Does have h/o past smoke exposure from . Physical Exam Physical Exam: GENERAL: 82 yo well-developed, well-nourished WF. NAD. LUNGS: No conversational dyspnea, scattered wheezes/rhonchi bilaterally. CARDIOVASCULAR: Regular rate and rhythm. ABDOMEN: Soft, non-tender and non-distended. BS normoactive x 4 quad. EXTREMITIES: No edema. Non-tender. Peripheral pulses +2/4. Results & Data Results & Data Vital Signs (Past 12 Hours) Vital Signs Temp Pulse Pulse Resp BP Pulse Ox O2 Del Method 02/12/23 09:30 Nasal Cannula 02/12/23 07:35 37.1 C 92 H 19 128/71 97 Nasal Cannula 02/12/23 02:45 91 H 22 96 O2 Flow Rate 02/12/23 09:30 2 02/12/23 07:35 3 02/12/23 02:45 3 Laboratory Results 02/12/23 05:41 02/12/23 05:41 PG Care Time/CCT Total # of Minutes Spent Total Time Spent with Patient: Total time spent is greater than 50% in coordination of care (as documented) at patient's floor/unit and/or counseling patient: Coding Level of Care Code 50753 SUB INP/OBS CARE 3/50MIN Diagnoses CAP (community acquired pneumonia) J18.9 Bacteremia R78.81 Type 2 diabetes mellitus E11.9 Benign essential hypertension I10 Sleep apnea G47.30 Hypothyroidism E03.9
[2023-02-12] MEDS ORDERED: methylPREDNISolone 125 MG in SYRINGE 0 ML IV STA (11:59)
[2023-02-12] MEDS ORDERED: PERFLUTREN LIPID MICROSPHERE (DEFINITY) IV ONE (13:33)
--- NOTE | 2023-02-12 14:44 | Infectious Disease Consult ---
Date of Consultation February 12, 2023 Assessment & Plan (1) Bacteremia: (2) Pneumonia: Plan 82 yo F with history of DM2, PVD, ASHLEY, diastolic CHF, TAVR who presented on 02/11 with shortness of breath x 3 days, productive cough, found to have pneumonia and MRSA bacteremia. Was febrile to 38.2 that AM at PCP office. On presentation, 93% on 2 L NC. Labs unremarkable with WBC 10.2. COVID-19/flu/RSV negative. CTA chest showed multifocal opacities consistent with pneumonia, no evidence of PE. She was started on ceftriaxone and azithromycin for CAP. BCx demonstrated GPCs in clusters in 2/4 bottles, with BCID PCR panel positive for MRSA, so pt was started on vancomycin on 02/12. Source of MRSA bacteremia could be pneumoniaordered sputum culture and MRSA nasal swab to assist with diagnosis. Of note, she does have a history of TAVR. Unable to see pt by video today due to lack of telepresenter availability. Will see by video tomorrow. Micro: 02/12 BCx x2: pending 02/11 BCx x2: GPCs in clusters in 2/4 bottles. PCR shows MRSA Abx: Vanc 02/12 present Ceftriaxone 02/11 present Azithromycin 02/11 present Problems: #MRSA bacteremia #Pneumonia #TAVR #Penicillin allergy: does not remember reaction Recommendations: -Continue vancomycin for MRSA bacteremia -Can continue ceftriaxone and azithromycin -Ordered repeat blood cultures for today. Would repeat 2 sets of blood cultures tomorrow -Ordered sputum culture, MRSA nasal swab -TTE to evaluate for endocarditis -Evaluate for evidence of metastatic foci of seeding of MRSA, such as joints, spine. If any concerns, would pursue further imaging of that area -Duration of antibiotics depends on whether there is evidence of metastatic MRSA infection. Because she has a prosthetic heart valve, would favor a longer course of IV antibiotics (4-6 weeks), rather than 2 weeks Will continue to follow Consultation Information This patient recommendation is based on a telemedicine consult request which was completed asynchronously through chart review and information provided by the primary physician. The patient was not seen or examined today. The evaluation is consultative in nature and all patient care and treatment decisions can either be accepted or rejected by the patient's primary hospital-based treating physician using their own independent medical judgment for their patient. Physical Therapy Professor contact information: Please call [facility] . (Phone Number For Physician Use Only) Time Spent Reviewing Chart: 31+ minutes History of Present Illness Reason for Consultation: MRSA bacteremia Requesting Physician: JENIFER Durham Attending Physician: Antione Loevll MD History of Present Illness 82 yo F with history of DM2, PVD, ASHLEY, diastolic CHF, TAVR who presented on 02/11 with shortness of breath over the last 3 days. Also reported productive cough. She was seen in her PCP office earlier that day, and was noted to have T 100.7, O2 sat 77% on room air, so was sent to the ED. On presentation, afebrile, HR 110, BP 174/82, 93% on 2 L NC. Labs unremarkable, with WBC 10.2. COVID- 19/flu/RSV negative. CTA chest showed multifocal opacities consistent with pneumonia, no evidence of PE. She was started on ceftriaxone and azithromycin for CAP. BCx demonstrated GPCs in clusters in 2/4 bottles, with PCR demonstrating MRSA, so pt was started on vancomycin this AM. Allergies Allergy/AdvReac Type Severity Reaction Status Date / Time adhesive Allergy Mild SKIN Verified 02/11/23 11:25 IRRITATION KINJAL Inhibitors Allergy Unknown LISTED ON Verified 02/11/23 11:25 MNPG Penicillins Allergy Unknown CAN'T Verified 02/11/23 11:25 REMEMBER Home Medications Medication Instructions Recorded Confirmed Type calcium carbonate 600 mg-vitamin 1 tab PO BID 12/22/18 02/11/23 History D3 20 mcg (800 unit) chewable tablet (Caltrate 600 plus D) omeprazole 20 mg capsule,delayed 20 mg PO QAM 12/22/18 02/11/23 History release Oxygen Home #1 ea 01/20/20 02/11/23 History omega 5-qtl-dtk-fish oil 1,000 mg 1 cap PO AMHS 08/09/20 02/11/23 History (120 mg-180 mg) capsule (Fish Oil) metformin 500 mg tablet 500 mg PO QAM 05/08/22 02/11/23 History candesartan 16 mg tablet 16 mg PO QAM #90 tabs 09/07/22 02/11/23 Rx azelastine 137 mcg (0.1 %) nasal 137 mcg (0.137 mL) intranasal BID 01/25/23 02/11/23 Rx spray aerosol #30 mL aspirin 81 mg tablet,delayed 81 mg PO HS 02/11/23 02/11/23 History release levothyroxine 75 mcg tablet 75 mcg PO DAILYBB 02/11/23 02/11/23 History mecobalamin (vitamin B12) 1,000 1,000 mcg sublingual QAM 02/11/23 02/11/23 History mcg disintegrating tablet,sublingual pravastatin 40 mg tablet 40 mg PO HS 02/11/23 02/11/23 History Patient History Medical History (Updated 02/12/23 @ 12:09 by Alysa Ortiz PA-C) Acute diastolic (congestive) heart failure Aortic stenosis Benign essential hypertension Dermatitis Generalized osteoarthritis of multiple sites Hypercapnic respiratory failure Hyperlipidemia Hypothyroidism Hypoxemia No pertinent past medical history 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 Type 2 diabetes mellitus Surgical History History of surgical removal of ganglion cyst Left wrist History of tubal ligation Family History Father Dementia Mother Lung cancer Grandmother Heart disease Other Family history non-contributory Denies family history of Ovarian cancer Prostate cancer Myocardial infarction Breast cancer Colorectal cancer Stroke Social History Smoking Status: Never smoker Second Hand Exposure: Yes; Hx Alcohol Use: No Hx Substance Use: No Preferred Language: Chadian Communication Ability: Effective Visual Impairment: Limited Hearing Ability: Use of Hearing Aid Ventilation Worker Required: No Beliefs That Will Affect Care: None marital status: Current Living Situation: Alone Current Living Situation Comment: house current occupational status: retired How many Children do You have: 6 How many Children do You have Comment: 2 boys 4 girls Other Information That Helps Us Care for You: No Feels Safe at Home: Yes Safety Concerns: Feels Safe At This Time Childhood Exposure to Second-Hand Smoke: Yes during the past year weight has: remained stable Dental Care, Regularly: Yes Physical Activity Frequency: Does not Exercise Seatbelt Use: always Assistive Devices: Cane, Oxygen - Continuous, Walker and Wheelchair Assistive Devices Comment: PRN oxygen 2L Review of System Pt was not seen Physical Exam Physical Exam: Pt was not seen Results & Data Vital Signs (Past 12 Hours) Vital Signs Temp Pulse Pulse Resp BP BP Pulse Ox 02/12/23 12:39 36.6 C 89 20 126/72 94 02/12/23 11:52 36.7 C 94 H 24 129/74 92 02/12/23 09:30 02/12/23 07:35 37.1 C 92 H 19 128/71 97 02/12/23 02:45 91 H 22 96 O2 Del Method O2 Flow Rate 02/12/23 12:39 Room Air 02/12/23 11:52 Room Air 02/12/23 09:30 Nasal Cannula 2 02/12/23 07:35 Nasal Cannula 3 02/12/23 02:45 3 Laboratory Results Short CBC 02/12/23 Range/Units 05:41 WBC 10.11 (4.8-10.8) K/ul Hgb 12.2 (12.0-16.0) g/dl Hct 38.1 (37.0-47.0) % Plt Count 281 (130-400) K/uL BMP 02/12/23 05:41 Sodium 138 Potassium 4.0 Chloride 101 Carbon Dioxide 30 BUN 17 Creatinine 1.04 Glucose 83 Calcium 9.1 Diagnostic Findings Chest X-Ray 02/11/23 12:59 XR chest 1V portable HISTORY: 82 years-old Female Chest pain, nonspecific acute chest pain COMPARISON: 11/26/2019 TECHNIQUE: AP view of the chest FINDINGS: Cardiac silhouette is enlarged. Aortic valvular endograft. Atherosclerosis of the aorta. Pulmonary vascular congestion with mild asymmetric left suprahilar airspace opacities. No pneumothorax. Trace pleural effusions suggested. Degenerative changes of the shoulders and spine. IMPRESSION: 1. Cardiomegaly with pulmonary vascular congestion. 2. Mild asymmetric left suprahilar airspace opacities. Correlate clinically to exclude pneumonia. ACT 112: Negative or not required by law. The above report was generated using voice recognition software. It may contain grammatical, syntax or spelling errors. Electronically signed by: Yves Garcia M.D. 02/11/2023 2:50 PM Chest CTA 02/11/23 14:51 CT angio chest PE protocol CLINICAL HISTORY: PE TECHNIQUE: Multidetector row helical CT of the chest was performed with angiographic protocol. Coronal and sagittal reformations were obtained. Coronal and sagittal MIPS were obtained from the axial data set and were submitted for review. Automated dose lowering techniques and/or adjustment according to patient size were utilized for this exam. CT DOSE: 509.73 mGycm Comparison: Comparison is made to CT chest 11/25/2019 FINDINGS: Lungs and pleura: Bronchial wall thickening is seen. Interval development of airspace opacities in the left upper and lower lobes. Heart and pericardium: Aortic valvular calcifications are seen. Mild atherosclerotic calcifications are seen. Vessels: No evidence of pulmonary embolism. Mediastinum and jon: Mediastinal lymph nodes measure up to 12 mm in short axis. Left hilar subcentimeter nodes are also seen. Chest wall and lower neck: Unremarkable. Abdomen: Cholelithiasis is seen without evidence of cholecystitis. Bones: Degenerative changes in the thoracic spine. IMPRESSION: No pulmonary embolus is seen. Multifocal airspace opacities are seen compatible with pneumonia, bronchial wall thickening may represent airways disease as well. Mediastinal lymph nodes are enlarged and likely reactive. ACT 112: Negative or not required by law. Electronically signed by: Jay Jerome M.D. 02/11/2023 4:26 PM Medications Administered Current Inpatient Medications Acetaminophen (Acetaminophen 325 Mg Tab) 650 mg PO Q4H PRN PRN Reason: pain/fever Stop: 03/13/23 18:38 Last Admin: 02/11/23 21:42 Dose: 650 mg Albuterol (Albut/Ipratrop 3mg/0.5mg Neb 3 Ml Vial) 3 ml NEB QIDR SAY; Protocol Stop: 03/14/23 14:59 Aspirin (Aspirin 81 Mg Ectab) 81 mg PO HS SAY Stop: 03/13/23 20:59 Last Admin: 02/11/23 19:35 Dose: 81 mg Dextrose (Dextrose 50% 50 Ml Syringe) 25 - 50 ml IV UD PRN; Protocol PRN Reason: Hypoglycemia Protocol Stop: 03/13/23 18:38 Glucagon (Glucagon For Inj 1 Mg Vial) 1 mg SQ UD PRN; Protocol PRN Reason: Hypoglycemia Protocol Stop: 03/13/23 18:38 Glucose (Glucose 10 Tab/Tube) 4 - 8 tab PO UD PRN; Protocol PRN Reason: Hypoglycemia Treatment Stop: 03/13/23 18:38 Glucose (Glucose 40% Gel 15 Gm Tube) 15 - 30 gm PO UD PRN; Protocol PRN Reason: Hypoglycemia Protocol Stop: 03/13/23 18:38 Guaifenesin (Guaifenesin 600 Mg Tabcr) 600 mg PO Q12 [facility] Stop: 03/14/23 20:59 Ceftriaxone Sodium 2,000 mg/ (Dextrose) 70 mls @ 100 mls/hr IV Q24H [facility]; Protocol Stop: 02/19/23 16:59 Vancomycin HCl 1,250 mg/ (Sodium Chloride) 275 mls @ 200 mls/hr IV Q24H [facility]; Protocol Stop: 02/26/23 17:59 Insulin Aspart (Insulin Aspart Per Unit Charge) 0 units SC ACHS [facility] Stop: 03/13/23 20:59 Last Admin: 02/12/23 13:14 Dose: Not Given Insulin Glargine (Lantus Per Unit Charge) 7 units SQ BID [facility] Stop: 03/13/23 20:59 Last Admin: 02/12/23 08:33 Dose: 7 units Levothyroxine Sodium (Levothyroxine Sodium 75 Mcg Tablet) 75 mcg PO DAILYBB [facility] Stop: 03/14/23 06:29 Last Admin: 02/12/23 05:14 Dose: 75 mcg Losartan Potassium (Losartan Potassium 50 Mg Tab) 50 mg PO QAM [facility] Stop: 03/14/23 08:59 Last Admin: 02/12/23 08:32 Dose: 50 mg Miscellaneous (Carbohydrates For Hypoglycemia ) 15 - 30 gm PO UD PRN PRN Reason: Hypoglycemia Protocol Stop: 03/13/23 18:38 Miscellaneous Information (Vancomycin Consult Active) 1 each N/A UD PRN PRN Reason: Consult Stop: 03/14/23 05:32 Pravastatin Sodium (Pravastatin Sod 40 Mg Tab) 40 mg PO HS [facility] Stop: 03/13/23 20:59 Last Admin: 02/11/23 19:35 Dose: 40 mg (2) Pneumonia Laterality: left Lung location: unspecified part of lung Pneumonia type: due to unspecified organism Qualified Code(s): J18.9 - Pneumonia, unspecified organism
--- NOTE | 2023-02-12 14:48 | XCELERA ---
[id number] [id number]
[2023-02-12] MEDS: ALBUT/IPRATROP 3MG/0.5MG NEB 3 ML VIAL NEB SCH ×2 (15:56→20:03)
[2023-02-12] MEDS: cefTRIAXone SODIUM 2,000 MG in DEXTROSE 5% 50 ML IV SCH (17:51)
[2023-02-12] MEDS ORDERED: VANCOMYCIN HCL 1,250 MG in SODIUM CHLORIDE 0.9% 250 ML IV SCH (18:00)
[2023-02-12] MEDS: PRAVASTATIN SOD 40 MG TAB PO SCH (21:09)
[2023-02-12] MEDS: guaiFENesin 600 MG TABCR PO SCH (21:10)
[2023-02-12] MEDS: ASPIRIN 81 MG ECTAB PO SCH (21:10)
[2023-02-13] MEDS: LEVOTHYROXINE SODIUM 75 MCG TABLET PO SCH (05:14)
[2023-02-13] MEDS: ALBUT/IPRATROP 3MG/0.5MG NEB 3 ML VIAL NEB SCH ×4 (07:38→20:13)
--- NOTE | 2023-02-13 09:00 | Hospitalist Progress Note ---
Date of Service February 13, 2023 Assessment & Plan (1) CAP (community acquired pneumonia): Plan: Pneumonia with acute hypoxic respiratory failure - high risk COVID/flu/RSV negative CTA showed multifocal opacities consistent with pneumonia, no evidence of PE For PNA, continued on treatment of CAP, multifocal with Rocephin, azithromycin - Add Mucinex, Duonebs QIDR and q2 prn d/t acute bronchospasm and ordered a dose of Solumedrol 125mg IVx1 - For her hypoxic respiratory failure, continue supplemental O2 with a goal pulse ox >90%, wean as able (2) Bacteremia: Plan: Acute/unstable - high risk - 1/2 blood cultures positive for GPC in clusters c/w staph, PCR = MRSA patient recalls having her teeth cleaned about January 17 - Source is unknown - d/w ID (Dr. Reddy), recommendations: -Continue vancomycin for MRSA bacteremia -Can continue ceftriaxone and azithromycin -Ordered repeat blood cultures 02/12. Would repeat 2 sets of blood cultures tomorrow -Ordered sputum culture, 02/12 MRSA nasal swab negative -TTE to evaluate for endocarditis -Evaluate for evidence of metastatic foci of seeding of MRSA, such as joints, spine. If any concerns, would pursue further imaging of that area -Duration of antibiotics depends on whether there is evidence of metastatic MRSA infection. Because she has a prosthetic heart valve, would favor a longer course of IV antibiotics (4-6 weeks), rather than 2 weeks (3) Type 2 diabetes mellitus: Plan: Chronic/stable - On Metformin at home, held d/t contrast admin - started on basal/bolus - Continue accuchecks ac/hs - DMT2 diet (4) Benign essential hypertension: Plan: Chronic/stable - HTN, HLD, h/o TAVR in 2019 - Continue Candesartan, Atorvastatin, and ASA (5) Sleep apnea: Plan: Chronic/stable - Continue cpap (6) Hypothyroidism: Plan: Chronic/stable - Continue levothyroxine Plan Add Lovenox for DVT ppx. Admission and Anticipated Discharge Date Admission Date: February 11, 2023 Subjective pt has no complaints or problems Physical Exam Physical Exam: Cardiac exam is regular with a systolic murmur No peripheral stigmata of endocarditis Lungs are clear Results & Data Results & Data Vital Signs (Past 12 Hours) Vital Signs Temp Pulse Pulse Resp BP Pulse Ox O2 Del Method 02/13/23 07:45 Nasal Cannula 02/13/23 07:38 72 18 93 Nasal Cannula 02/13/23 07:17 98.3 F 79 18 112/78 92 Room Air 02/13/23 02:44 85 22 96 02/12/23 22:30 89 29 H 95 02/12/23 21:13 89 O2 Flow Rate 02/13/23 07:45 1 02/13/23 07:38 1 02/13/23 07:17 02/13/23 02:44 2 02/12/23 22:30 2 02/12/23 21:13 Laboratory Results Reviewed CBC Reviewed PRP PG Care Time/CCT Total # of Minutes Spent Total Time Spent with Patient: Total time spent is greater than 50% in coordination of care (as documented) at patient's floor/unit and/or counseling patient: Coding Level of Care Code 42643 SUB INP/OBS CARE 2/35MIN Diagnoses CAP (community acquired pneumonia) J18.9 Bacteremia R78.81 Type 2 diabetes mellitus E11.9 Benign essential hypertension I10 Sleep apnea G47.30 Hypothyroidism E03.9
--- NOTE | 2023-02-13 09:21 | Infectious Disease Progress Nt ---
Date of Service February 13, 2023 Assessment & Plan (1) Bacteremia: (2) Pneumonia: Plan 82 yo F with history of DM2, PVD, ASHLEY, diastolic CHF, TAVR (2019) who presented on 02/11 with shortness of breath x 3 days, productive cough, found to have pneumonia and MRSA bacteremia. Was febrile to 38.2 that AM at PCP office. On presentation, 93% on 2 L NC. Labs unremarkable with WBC 10.2. COVID-19/flu/RSV negative. CTA chest showed multifocal opacities consistent with pneumonia, no evidence of PE. She was started initially on ceftriaxone and azithromycin for CAP. However BCx demonstrated GPCs in clusters in 2/4 bottles, with BCID PCR panel positive for MRSA, so vancomycin was added on 02/12. Source of MRSA bacteremia could be pneumoniaordered sputum culture to assist with diagnosis. Interestingly, MRSA nares is negative. Of note, she does have a history of TAVR. TTE on 02/12 did not identify masses/vegetations. Micro: 02/14 BCx x2: pending 02/13 Sputum cx: pending. GS--few GPCs 02/12 MRSA nares: negative 02/12 BCx x2: pending 02/11 BCx x2: Staph species in 2/4 bottles. PCR shows MRSA Abx: Vanc 02/12 present Ceftriaxone 02/11 present Azithromycin 02/11 present Problems: #MRSA bacteremia #Pneumonia #TAVR 2019 #Penicillin allergy: does not remember reaction Recommendations: -Follow-up blood cultures for clearance -Follow-up sputum culture -Continue vancomycin for MRSA bacteremia -Can continue ceftriaxone x 5 days and azithromycin x 3 days -If repeat blood cultures from 02/12 are still positive for MRSA, would recommend WEI to rule out endocarditis -Duration of antibiotics to be determined. Will need PICC line on discharge for IV antibiotics (likely 4-6 weeks, because she has a TAVR) Will continue to follow Admission and Anticipated Discharge Date Admission Date: February 11, 2023 Subjective Subsequent visit was provided via telemedicine using two-way real-time interactive telecommunication between the patient and the telemedicine provider. For the duration of the visit, the provider was performing the assessment from a different facility than the patient. This includesuse of bluetooth stethoscope forauscultationperformed by the telepresenter that the telemedicine provider can hear if described in the physical exam. [employer] [place] contact information: Please call [facility] . (Phone Number For Physician Use Only) After establishing a telemedicine visit, patient was: Patient was verified with two unique identifiers, Patient/authorized rep acknowledged consent and understanding and Gave permission to continue telehealth session Time Spent with Patient: Subsequent => 25 min Pt reports her breathing has improved Had a TAVR in 2019. Denies other prosthetic devices/hardware Denies any wounds/open cuts Denies joint/spinal pain On 1 L NC Review of System A complete ROS was performed and is negative except as mentioned in the HPI. Physical Exam Physical Exam: GEN: Well-appearing, in NAD. HEENT: NC in place RESP: No increased work of breathing ABD: BS+. Soft, non-distended. Non-tender to palpation. EXT: mild LE edema. no focal joint abnormalities SKIN: No lesions or rashes NEURO: Alert and oriented. Answers all questions appropriately. Speech not slurred. PSYCH: Normal mood, affect appropriate. Results & Data Vital Signs (Past 12 Hours) Vital Signs Temp Pulse Pulse Resp BP Pulse Ox O2 Del Method 02/13/23 07:45 Nasal Cannula 02/13/23 07:38 72 18 93 Nasal Cannula 02/13/23 07:17 36.8 C 79 18 112/78 92 Room Air 02/13/23 02:44 85 22 96 02/12/23 22:30 89 29 H 95 O2 Flow Rate 02/13/23 07:45 1 02/13/23 07:38 1 02/13/23 07:17 02/13/23 02:44 2 02/12/23 22:30 2 Diagnostic Findings 02/12 TTE There is no evidence of a mass or vegetation. This does not rule out endocarditis. Medications Administered Current Inpatient Medications Acetaminophen (Acetaminophen 325 Mg Tab) 650 mg PO Q4H PRN PRN Reason: pain/fever Stop: 03/13/23 18:38 Last Admin: 02/11/23 21:42 Dose: 650 mg Albuterol (Albut/Ipratrop 3mg/0.5mg Neb 3 Ml Vial) 3 ml NEB QIDR [facility]; Protocol Stop: 03/14/23 14:59 Last Admin: 02/13/23 07:38 Dose: 3 ml Aspirin (Aspirin 81 Mg Ectab) 81 mg PO HS [facility] Stop: 03/13/23 20:59 Last Admin: 02/12/23 21:10 Dose: 81 mg Azithromycin (Azithromycin 250 Mg Tab) 250 mg PO QAM [facility] Stop: 02/18/23 08:59 Dextrose (Dextrose 50% 50 Ml Syringe) 25 - 50 ml IV UD PRN; Protocol PRN Reason: Hypoglycemia Protocol Stop: 03/13/23 18:38 Glucagon (Glucagon For Inj 1 Mg Vial) 1 mg SQ UD PRN; Protocol PRN Reason: Hypoglycemia Protocol Stop: 03/13/23 18:38 Glucose (Glucose 10 Tab/Tube) 4 - 8 tab PO UD PRN; Protocol PRN Reason: Hypoglycemia Treatment Stop: 03/13/23 18:38 Glucose (Glucose 40% Gel 15 Gm Tube) 15 - 30 gm PO UD PRN; Protocol PRN Reason: Hypoglycemia Protocol Stop: 03/13/23 18:38 Guaifenesin (Guaifenesin 600 Mg Tabcr) 600 mg PO Q12 [facility] Stop: 03/14/23 20:59 Last Admin: 02/13/23 09:46 Dose: 600 mg Ceftriaxone Sodium 2,000 mg/ (Dextrose) 70 mls @ 100 mls/hr IV Q24H [facility]; Protocol Stop: 02/19/23 16:59 Last Infusion: 02/12/23 18:39 Dose: Infused Vancomycin HCl 1,250 mg/ (Sodium Chloride) 275 mls @ 200 mls/hr IV Q24H [facility]; Protocol Stop: 02/26/23 17:59 Last Infusion: 02/12/23 21:12 Dose: Infused Insulin Aspart (Insulin Aspart Per Unit Charge) 0 units SC ACHS [facility] Stop: 03/13/23 20:59 Last Admin: 02/12/23 21:17 Dose: 1 units Insulin Glargine (Lantus Per Unit Charge) 7 units SQ BID [facility] Stop: 03/13/23 20:59 Last Admin: 02/12/23 21:17 Dose: 7 units Levothyroxine Sodium (Levothyroxine Sodium 75 Mcg Tablet) 75 mcg PO DAILYBB [facility] Stop: 03/14/23 06:29 Last Admin: 02/13/23 05:14 Dose: 75 mcg Losartan Potassium (Losartan Potassium 50 Mg Tab) 50 mg PO QAM [facility] Stop: 03/14/23 08:59 Last Admin: 02/13/23 09:46 Dose: 50 mg Miscellaneous (Carbohydrates For Hypoglycemia ) 15 - 30 gm PO UD PRN PRN Reason: Hypoglycemia Protocol Stop: 03/13/23 18:38 Miscellaneous Information (Vancomycin Consult Active) 1 each N/A UD PRN PRN Reason: Consult Stop: 03/14/23 05:32 Pravastatin Sodium (Pravastatin Sod 40 Mg Tab) 40 mg PO HS [facility]AY Stop: 03/13/23 20:59 Last Admin: 02/12/23 21:09 Dose: 40 mg (2) Pneumonia Laterality: left Lung location: unspecified part of lung Pneumonia type: due to unspecified organism Qualified Code(s): J18.9 - Pneumonia, unspecified organism
[2023-02-13] MEDS: guaiFENesin 600 MG TABCR PO SCH ×2 (09:46→21:11)
[2023-02-13] MEDS: LOSARTAN POTASSIUM 50 MG TAB PO SCH (09:46)
[2023-02-13] MEDS: LANTUS PER UNIT CHARGE SQ SCH ×2 (09:48→21:10)
[2023-02-13] MEDS: INSULIN ASPART PER UNIT CHARGE SC SCH ×4 (09:48→21:11)
[2023-02-13] MEDS: AZITHROMYCIN 250 MG TAB PO SCH (09:58)
[2023-02-13 10:00] LABS: Basophils # (auto) 0.01 K/uL (0-0.2); Basophils % (auto) 0.1 %; Hematocrit (blood only) 34.4 % (37.0-47.0); Hemoglobin 11.3 g/dl (12.0-16.0); Immature Granulocytes # (auto) 0.04 K/uL (0.01-0.20); Immature Granulocytes % (auto) 0.4 %; Lymphocytes # (auto) 1.22 K/uL (1.2-3.4); Mean Corpuscular Hemoglobin 29.4 pg (25.0-34.0); Mean Corpuscular Hgb Conc 32.8 g/dL (32.0-36.0); Mean Corpuscular Volume 89.6 fL (80.0-100.0); Mean Platelet Volume 10.2 fL (9.4-12.4); Monocytes # (auto) 0.43 K/uL (0.11-0.59); Monocytes % (auto) 4.6 %; Neutrophils # (auto) 7.66 K/uL (1.40-6.50); Neutrophils % (auto) 81.9 %; Platelet Count 304 K/uL (130-400); RDW Coefficient of Variation 13.7 % (11.5-14.5); Red Blood Count 3.84 M/uL (4.20-5.40); White Blood Count 9.36 K/ul (4.8-10.8)
[2023-02-13 10:16] LABS: BUN Creatinine Ratio 22.7 (10-20); Calcium 8.8 mg/dl (8.6-10.3); Creatinine Clr Calc Pharmacy 38.8 ml/min; Est GFR (African American) 54.1 ml/min; Est GFR (Non-African American) 46.7 ml/min; Magnesium 2.2 mg/dl (1.7-2.4); Potassium 3.6 mmol/L (3.5-5.1)
--- NOTE | 2023-02-13 10:27 | Pharmacy Report ---
Pharmacy PK ABX Note - Date of Service February 13, 2023 - Assessment and Plan Assessment 82 year old F receiving vancomycin, rocephin and azithromycin for possible pneumonia/bacteremia. Serology for blood cultures positive for MRSA. TTE not suggestive of any masses/vegetations. Repeat blood cultures are pending at this time. ID is following the patient Day #2 of antimicrobial therapy. Plan Vancomycin * Random level this morning came back at ~13.9 mcg/ml - current vancomycin dosing predicted to achieve trough level of ~17.6 mcg/ml and achieve AUC of ~550 mg/L.hr and may be associated with a 14% risk for nephrotoxicity * Plan to retime dosing earlier to achieve target levels sooner. Will continue with current regimen of 1250 mg iv q 24 hours * Plan to recheck another level in 2-3 days or sooner if renal function changes Pharmacy has transitioned to AUC monitoring for vancomycin. AUC/SULEMAN is the preferred PK/PD target and is associated with decreased risk of nephrotoxicity compared to traditional trough targets.
[2023-02-13] MEDS: VANCOMYCIN HCL 1,250 MG in SODIUM CHLORIDE 0.9% 250 ML IV SCH (11:48)
[2023-02-13] MEDS: cefTRIAXone SODIUM 2,000 MG in DEXTROSE 5% 50 ML IV SCH (16:26)
[2023-02-13] MEDS: PRAVASTATIN SOD 40 MG TAB PO SCH (21:11)
[2023-02-13] MEDS: ASPIRIN 81 MG ECTAB PO SCH (21:11)
[2023-02-14] MEDS: LEVOTHYROXINE SODIUM 75 MCG TABLET PO SCH (05:30)
[2023-02-14 07:04] LABS: Creatinine Clr Calc Pharmacy 36.5 ml/min; Est GFR (African American) 50.3 ml/min; Est GFR (Non-African American) 43.4 ml/min
[2023-02-14] MEDS: ALBUT/IPRATROP 3MG/0.5MG NEB 3 ML VIAL NEB SCH ×4 (07:15→19:56)
[2023-02-14] MEDS: LANTUS PER UNIT CHARGE SQ SCH ×2 (09:19→20:41)
[2023-02-14] MEDS: INSULIN ASPART PER UNIT CHARGE SC SCH ×4 (09:20→20:42)
[2023-02-14] MEDS: LOSARTAN POTASSIUM 50 MG TAB PO SCH (09:22)
[2023-02-14] MEDS: AZITHROMYCIN 250 MG TAB PO SCH (09:22)
[2023-02-14] MEDS: guaiFENesin 600 MG TABCR PO SCH ×2 (09:23→20:36)
[2023-02-14] MEDS: VANCOMYCIN HCL 1,250 MG in SODIUM CHLORIDE 0.9% 250 ML IV SCH (11:35)
[2023-02-14] MEDS: ACETAMINOPHEN 325 MG TAB PO PRN (12:55)
--- NOTE | 2023-02-14 13:26 | Infectious Disease Progress Nt ---
Date of Service February 14, 2023 Assessment & Plan (1) Bacteremia: (2) Pneumonia: Plan 82 yo F with history of DM2, PVD, ASHLEY, diastolic CHF, TAVR (2019) who presented on 02/11 with shortness of breath x 3 days, productive cough, found to have pneumonia and MRSA bacteremia. Was febrile to 38.2 that AM at PCP office. On presentation, 93% on 2 L NC. Labs unremarkable with WBC 10.2. COVID-19/flu/RSV negative. CTA chest showed multifocal opacities consistent with pneumonia, no evidence of PE. She was started initially on ceftriaxone and azithromycin for CAP. However BCx grew MRSA in 2/4 bottles, so vancomycin was added on 02/12. Unclear source of MRSA bacteremia--could consider pneumonia, although the patient overall looks quite well, and MRSA nares is negative, and sputum culture shows light normal adrian. Interestingly, the same positive blood culture also has coag neg Staph in the aerobic bottle, raising concern for contaminant. Of note, she does have a history of TAVR. TTE on 02/12 did not identify masses/vegetations. Micro: 02/13 BCx x2: NGTD 02/13 Sputum cx: light wai adrian. GS--few GPCs 02/12 MRSA nares: negative 02/12 BCx x2: NGTD 02/11 BCx x2: MRSA in 2/4 bottles, Coag neg Staph (not Staph lug) in 1/4 bottles Abx: Vanc 02/12 present Ceftriaxone 02/11 present Azithromycin 02/11 present Problems: #MRSA bacteremia #Pneumonia #TAVR 2019 #Penicillin allergy: does not remember reaction Recommendations: -Follow-up blood cultures for clearance -Continue vancomycin for MRSA bacteremia -Can continue ceftriaxone, azithro x 5 days (last dose 02/15) -If repeat blood cultures from 02/12 are still positive for MRSA, would recommend WEI to rule out endocarditis -If she only grew MRSA in 1/2 sets of blood cultures (not "high grade"), has rapid blood culture clearance on subsequent days, then may be able to discharge on 4 weeks of IV antibiotics rather than 6 weeks. Would hesitate to discharge on just 2 weeks of IV antibiotics because she has a history of TAVR. -If 02/12, 02/13 BCx are NGTD x 48 hours, ok to place PICC line and would discharge on vancomycin (goal trough 15-20) to complete a 4 week course from first day of cleared blood cultures (tentatively, 02/12 - 03/11) -Check at least weekly CBC with diff, BMP, vanc level to monitor for toxicity -Preference for vancomycin over daptomycin, at least in the early weeks, in case she had MRSA bacteremia from pneumonia. However, if vanc dosing becomes an issue, can transition to daptomycin 8 mg/kg daily instead after the first week or so. Would check weekly CK for toxicity while on daptomycin -Would arrange for outpatient follow-up with ID and perform a set of surveillance blood cultures ~1 week after completing the above antibiotic therapy to check for recurrent bacteremia which would indicate an occult source of infection Admission and Anticipated Discharge Date Admission Date: February 11, 2023 Subjective This patient recommendation is based on a telemedicine consult request which was completed asynchronously through chart review and information provided by the primary physician. The patient was not seen or examined today. The evaluation is consultative in nature and all patient care and treatment decisions can either be accepted or rejected by the patient's primary hospital-based treating physician using their own independent medical judgment for their patient. Time Spent Reviewing Chart: 21 - 30 minutes Afebrile No acute events 02/12 and 02/13 BCx NGTD Sputum culture with light normal adrian Review of System Pt was not seen Physical Exam Physical Exam: Pt was not seen Results & Data Vital Signs (Past 12 Hours) Vital Signs Temp Pulse Resp BP Pulse Ox O2 Del Method FiO2 02/14/23 11:04 36.5 C 88 18 118/67 94 Room Air 02/14/23 11:07 107 H 14 94 Nasal Cannula 21 02/14/23 10:08 Room Air 02/14/23 07:47 37.5 C 88 20 127/60 99 Room Air 02/14/23 07:17 107 H 14 93 Room Air 21 02/14/23 04:18 94 H 96 Room Air Laboratory Results BMP 02/14/23 05:51 Creatinine 1.17 Medications Administered Current Inpatient Medications Acetaminophen (Acetaminophen 325 Mg Tab) 650 mg PO Q4H PRN PRN Reason: pain/fever Stop: 03/13/23 18:38 Last Admin: 02/14/23 12:55 Dose: 650 mg Albuterol (Albut/Ipratrop 3mg/0.5mg Neb 3 Ml Vial) 3 ml NEB QIDR [facility]; Protocol Stop: 03/14/23 14:59 Last Admin: 02/14/23 11:04 Dose: 3 ml Aspirin (Aspirin 81 Mg Ectab) 81 mg PO HS [facility] Stop: 03/13/23 20:59 Last Admin: 02/13/23 21:11 Dose: 81 mg Azithromycin (Azithromycin 250 Mg Tab) 250 mg PO QAM [facility] Stop: 02/18/23 08:59 Last Admin: 02/14/23 09:22 Dose: 250 mg Dextrose (Dextrose 50% 50 Ml Syringe) 25 - 50 ml IV UD PRN; Protocol PRN Reason: Hypoglycemia Protocol Stop: 03/13/23 18:38 Glucagon (Glucagon For Inj 1 Mg Vial) 1 mg SQ UD PRN; Protocol PRN Reason: Hypoglycemia Protocol Stop: 03/13/23 18:38 Glucose (Glucose 10 Tab/Tube) 4 - 8 tab PO UD PRN; Protocol PRN Reason: Hypoglycemia Treatment Stop: 03/13/23 18:38 Glucose (Glucose 40% Gel 15 Gm Tube) 15 - 30 gm PO UD PRN; Protocol PRN Reason: Hypoglycemia Protocol Stop: 03/13/23 18:38 Guaifenesin (Guaifenesin 600 Mg Tabcr) 600 mg PO Q12 [facility] Stop: 03/14/23 20:59 Last Admin: 02/14/23 09:23 Dose: 600 mg Ceftriaxone Sodium 2,000 mg/ (Dextrose) 70 mls @ 100 mls/hr IV Q24H [facility]; Protocol Stop: 02/19/23 16:59 Last Infusion: 02/13/23 17:33 Dose: Infused Vancomycin HCl 1,250 mg/ (Sodium Chloride) 275 mls @ 200 mls/hr IV Q24H [facility]; Protocol Stop: 02/27/23 11:59 Last Admin: 02/14/23 11:35 Dose: 200 mls/hr Insulin Aspart (Insulin Aspart Per Unit Charge) 0 units SC ACHS [facility] Stop: 03/13/23 20:59 Last Admin: 02/14/23 12:54 Dose: Not Given Insulin Glargine (Lantus Per Unit Charge) 7 units SQ BID [facility] Stop: 03/13/23 20:59 Last Admin: 02/14/23 09:19 Dose: 7 units Levothyroxine Sodium (Levothyroxine Sodium 75 Mcg Tablet) 75 mcg PO DAILYBB [facility] Stop: 03/14/23 06:29 Last Admin: 02/14/23 05:30 Dose: 75 mcg Losartan Potassium (Losartan Potassium 50 Mg Tab) 50 mg PO QAM [facility] Stop: 03/14/23 08:59 Last Admin: 02/14/23 09:22 Dose: 50 mg Miscellaneous (Carbohydrates For Hypoglycemia ) 15 - 30 gm PO UD PRN PRN Reason: Hypoglycemia Protocol Stop: 03/13/23 18:38 Miscellaneous Information (Vancomycin Consult Active) 1 each N/A UD PRN PRN Reason: Consult Stop: 03/14/23 05:32 Pravastatin Sodium (Pravastatin Sod 40 Mg Tab) 40 mg PO HS [facility] Stop: 03/13/23 20:59 Last Admin: 02/13/23 21:11 Dose: 40 mg (2) Pneumonia Laterality: left Lung location: unspecified part of lung Pneumonia type: due to unspecified organism Qualified Code(s): J18.9 - Pneumonia, unspecified organism
[2023-02-14] MEDS: cefTRIAXone SODIUM 2,000 MG in DEXTROSE 5% 50 ML IV SCH (16:48)
--- NOTE | 2023-02-14 18:04 | Hospitalist Progress Note ---
Date of Service February 14, 2023 Assessment & Plan (1) CAP (community acquired pneumonia): Plan: Pneumonia with acute hypoxic respiratory failure - high risk COVID/flu/RSV negative CTA showed multifocal opacities consistent with pneumonia, no evidence of PE For PNA, continued on treatment of CAP, multifocal with Rocephin, azithromycin - Add Mucinex, Duonebs QIDR and q2 prn d/t acute bronchospasm and ordered a dose of Solumedrol 125mg IVx1 - For her hypoxic respiratory failure, continue supplemental O2 with a goal pulse ox >90%, wean as able (2) Bacteremia: Plan: Acute/unstable - high risk - 1/2 blood cultures positive for GPC in clusters c/w staph, PCR = MRSA patient recalls having her teeth cleaned about January 17 - Source is unknown - d/w ID (Dr. Reddy), recommendations: -Continue vancomycin for MRSA bacteremia -Can continue ceftriaxone and azithromycin -Ordered repeat blood cultures 02/12. Would repeat 2 sets of blood cultures tomorrow -Ordered sputum culture, 02/12 MRSA nasal swab negative -TTE to evaluate for endocarditis -Evaluate for evidence of metastatic foci of seeding of MRSA, such as joints, spine. If any concerns, would pursue further imaging of that area -Duration of antibiotics depends on whether there is evidence of metastatic MRSA infection. Because she has a prosthetic heart valve, would favor a longer course of IV antibiotics (4-6 weeks), rather than 2 weeks Awaiting blood cultures to be [address] PICC line if above criteria is met. (3) Type 2 diabetes mellitus: Plan: Chronic/stable - On Metformin at home, held d/t contrast admin - started on basal/bolus - Continue accuchecks ac/hs - DMT2 diet (4) Benign essential hypertension: Plan: Chronic/stable - HTN, HLD, h/o TAVR in 2019 - Continue Candesartan, Atorvastatin, and ASA (5) Sleep apnea: Plan: Chronic/stable - Continue cpap (6) Hypothyroidism: Plan: Chronic/stable - Continue levothyroxine Plan Add Lovenox for DVT ppx. Admission and Anticipated Discharge Date Admission Date: February 11, 2023 Subjective 82 yo female reports feeling well. She has no new complaints. Review of Systems Review of Systems: All systems reviewed & are unremarkable except as noted in HPI & below Physical Exam Physical Exam: Sitting upright in chair, reading. Cardiac exam is regular with a systolic murmur No peripheral stigmata of endocarditis Lungs are clear Results & Data Results & Data Vital Signs (Past 12 Hours) Vital Signs Temp Pulse Resp BP BP Pulse Ox O2 Del Method 02/14/23 15:19 89 13 98 Room Air 02/14/23 15:11 36.8 C 98 H 16 117/72 95 Room Air 02/14/23 11:04 36.5 C 88 18 118/67 94 Room Air 02/14/23 11:07 107 H 14 94 Nasal Cannula 02/14/23 10:08 Room Air 02/14/23 07:47 37.5 C 88 20 127/60 99 Room Air 02/14/23 07:17 107 H 14 93 Room Air FiO2 02/14/23 15:19 21 02/14/23 15:11 02/14/23 11:04 02/14/23 11:07 21 02/14/23 10:08 02/14/23 07:47 02/14/23 07:17 21 PG Care Time/CCT Total # of Minutes Spent Total Time Spent with Patient: Total time spent is greater than 50% in coordination of care (as documented) at patient's floor/unit and/or counseling patient: Coding Level of Care Code 08345 SUB INP/OBS CARE 3/50MIN Diagnoses CAP (community acquired pneumonia) J18.9 Bacteremia R78.81 Type 2 diabetes mellitus E11.9 Benign essential hypertension I10 Sleep apnea G47.30 Hypothyroidism E03.9
[2023-02-14] MEDS: ASPIRIN 81 MG ECTAB PO SCH (20:36)
[2023-02-14] MEDS: PRAVASTATIN SOD 40 MG TAB PO SCH (20:36)
[2023-02-15] MEDS: LEVOTHYROXINE SODIUM 75 MCG TABLET PO SCH (05:39)
[2023-02-15] MEDS: ALBUT/IPRATROP 3MG/0.5MG NEB 3 ML VIAL NEB SCH ×3 (07:40→14:43)
[2023-02-15] MEDS: guaiFENesin 600 MG TABCR PO SCH (08:55)
[2023-02-15] MEDS: LOSARTAN POTASSIUM 50 MG TAB PO SCH (08:55)
[2023-02-15] MEDS: AZITHROMYCIN 250 MG TAB PO SCH (08:55)
[2023-02-15] MEDS: INSULIN ASPART PER UNIT CHARGE SC SCH ×3 (08:56→18:05)
[2023-02-15] MEDS: LANTUS PER UNIT CHARGE SQ SCH (09:00)
[2023-02-15 11:03] LABS: Creatinine Clr Calc Pharmacy 34.1 ml/min; Est GFR (African American) 46.4 ml/min
--- NOTE | 2023-02-15 11:35 | Pharmacy Report ---
Pharmacy PK ABX Note - Date of Service February 15, 2023 - Assessment and Plan Assessment 82 year old F receiving vancomycin, rocephin and azithromycin for possible pneumonia/bacteremia. Serology for blood cultures positive for MRSA. TTE not suggestive of any masses/vegetations. Repeat blood cultures with no growth to date. ID is following the patient * Day #4 of antimicrobial therapy. * Level is therapeutic today. Per ID, stop ceftriaxone and azithromycin after 5 days (last doses today). Asked provider for permission to change stop dates. * Discharge recs: Vancomycin 1250 mg IV every 24 hours (noon time in here but may be adjusted to meet outpatient needs). Weekly CBC w/ diff, BMP and Vanc trough level. Plan Vancomycin * Current regimen: 1250 mg IV every 24 hours * Trough level obtained 02/15/23 resulted as 14.0 mcg/mL. This is predicted to achieve target AUC/SULEMAN of 400-600 mg/L.hr * Predicted AUC at steady state: 525 mg/L.hr * Continue 1250 mg IV every 24 hours * No repeat trough level will be ordered at this time Pharmacy has transitioned to AUC monitoring for vancomycin. AUC/SULEMAN is the preferred PK/PD target and is associated with decreased risk of nephrotoxicity compared to traditional trough targets.
[2023-02-15] MEDS: VANCOMYCIN HCL 1,250 MG in SODIUM CHLORIDE 0.9% 250 ML IV SCH (13:00)
--- NOTE | 2023-02-15 13:18 | Infectious Disease Progress Nt ---
Date of Service February 15, 2023 Assessment & Plan (1) Bacteremia: (2) Pneumonia: Plan 82 yo F with history of DM2, PVD, ASHLEY, diastolic CHF, TAVR (2019) who presented on 02/11 with shortness of breath x 3 days, productive cough, found to have pneumonia and MRSA bacteremia. Was febrile to 38.2 that AM at PCP office. On presentation, 93% on 2 L NC. Labs unremarkable with WBC 10.2. COVID-19/flu/RSV negative. CTA chest showed multifocal opacities consistent with pneumonia, no evidence of PE. She was started initially on ceftriaxone and azithromycin for CAP. However BCx grew MRSA in 2/4 bottles, so vancomycin was added on 02/12. Unclear source of MRSA bacteremia--could consider pneumonia, although the patient overall looks quite well, and MRSA nares is negative, and sputum culture shows light normal adrian. Interestingly, the same positive blood culture also has coag neg Staph in the aerobic bottle, raising concern for contaminant. Of note, she does have a history of TAVR. TTE on 02/12 did not identify masses/vegetations. Micro: 02/13 BCx x2: NGTD 02/13 Sputum cx: light wai adrian. GS--few GPCs 02/12 MRSA nares: negative 02/12 BCx x2: NGTD 02/11 BCx x2: MRSA in 2/4 bottles, Coag neg Staph (not Staph lug) in 1/4 bottles Abx: Vanc 02/12 present Ceftriaxone 02/11 present Azithromycin 02/11 present Problems: #MRSA bacteremia #Pneumonia #TAVR 2019 #Penicillin allergy: does not remember reaction Recommendations: -Because she only grew MRSA in 1/2 sets of blood cultures (not "high grade"), and so far has rapid blood culture clearance on subsequent days, can discharge on 4 weeks of IV antibiotics. Would hesitate to discharge on just 2 weeks of IV antibiotics because she has a history of TAVR. -Treat with vancomycin (goal trough 15-20) via PICC for 4 weeks from first d ay of cleared blood cultures (02/12 - 03/11) -Check at least weekly CBC with diff, BMP, vanc level to monitor for toxicity -Prefer vancomycin over daptomycin, at least in the early weeks, in case she had MRSA bacteremia from pneumonia. However, if vanc dosing becomes an issue, can transition to daptomycin 8 mg/kg IV daily instead after the first week or so. Would check weekly CK for toxicity while on daptomycin -Follow-up 02/12, 02/13 blood culture finalization for clearance -If 02/12 or 02/13 BCx become positive, would perform WEI to rule out endocarditis and extend IV antibiotic course to 6 weeks (through 03/25) -Would perform a set of surveillance blood cultures ~1 week after completing the above antibiotic therapy to check for recurrent bacteremia which would indicate an occult source of infection Discussed with primary team. Will sign off. Please page [facility] with further questions. Admission and Anticipated Discharge Date Admission Date: February 11, 2023 Subjective This patient recommendation is based on a telemedicine consult request which was completed asynchronously through chart review and information provided by the primary physician. The patient was not seen or examined today. The evaluation is consultative in nature and all patient care and treatment decisions can either be accepted or rejected by the patient's primary hospital-based treating physician using their own independent medical judgment for their patient. Time Spent Reviewing Chart: 11 - 20 minutes No acute events Review of System pt not seen Physical Exam Physical Exam: pt not seen Results & Data Vital Signs (Past 12 Hours) Vital Signs Temp Pulse Pulse Resp BP BP Pulse Ox 02/15/23 11:17 93 H 16 93 02/15/23 09:29 02/15/23 08:05 36.4 C L 70 16 119/74 100 02/15/23 07:41 98 H 18 92 02/15/23 07:20 36.8 C 102 H 22 112/50 L 95 02/15/23 01:31 24 96 O2 Del Method 02/15/23 11:17 Room Air 02/15/23 09:29 Room Air 02/15/23 08:05 Room Air 02/15/23 07:41 Room Air 02/15/23 07:20 Room Air 02/15/23 01:31 Laboratory Results BMP 02/15/23 09:44 Creatinine 1.25 H Cardiac Enzymes 02/15/23 Range/Units 09:44 Total Creatine Kinase 233 H (26-192) U/L Medications Administered Current Inpatient Medications Acetaminophen (Acetaminophen 325 Mg Tab) 650 mg PO Q4H PRN PRN Reason: pain/fever Stop: 03/13/23 18:38 Last Admin: 02/14/23 12:55 Dose: 650 mg Albuterol (Albut/Ipratrop 3mg/0.5mg Neb 3 Ml Vial) 3 ml NEB QIDR SAY; Protocol Stop: 03/14/23 14:59 Last Admin: 02/15/23 11:17 Dose: 3 ml Aspirin (Aspirin 81 Mg Ectab) 81 mg PO HS [facility] Stop: 03/13/23 20:59 Last Admin: 02/14/23 20:36 Dose: 81 mg Azithromycin (Azithromycin 250 Mg Tab) 250 mg PO QAM SAY Stop: 02/18/23 08:59 Last Admin: 02/15/23 08:55 Dose: 250 mg Dextrose (Dextrose 50% 50 Ml Syringe) 25 - 50 ml IV UD PRN; Protocol PRN Reason: Hypoglycemia Protocol Stop: 03/13/23 18:38 Glucagon (Glucagon For Inj 1 Mg Vial) 1 mg SQ UD PRN; Protocol PRN Reason: Hypoglycemia Protocol Stop: 03/13/23 18:38 Glucose (Glucose 10 Tab/Tube) 4 - 8 tab PO UD PRN; Protocol PRN Reason: Hypoglycemia Treatment Stop: 03/13/23 18:38 Glucose (Glucose 40% Gel 15 Gm Tube) 15 - 30 gm PO UD PRN; Protocol PRN Reason: Hypoglycemia Protocol Stop: 03/13/23 18:38 Guaifenesin (Guaifenesin 600 Mg Tabcr) 600 mg PO Q12 [facility] Stop: 03/14/23 20:59 Last Admin: 02/15/23 08:55 Dose: 600 mg Ceftriaxone Sodium 2,000 mg/ (Dextrose) 70 mls @ 100 mls/hr IV Q24H [facility]; Protocol Stop: 02/19/23 16:59 Last Infusion: 02/14/23 17:34 Dose: Infused Vancomycin HCl 1,250 mg/ (Sodium Chloride) 275 mls @ 200 mls/hr IV Q24H [facility]; Protocol Stop: 02/27/23 11:59 Last Admin: 02/15/23 13:00 Dose: 200 mls/hr Insulin Aspart (Insulin Aspart Per Unit Charge) 0 units SC ACHS [facility] Stop: 03/13/23 20:59 Last Admin: 02/15/23 13:02 Dose: Not Given Insulin Glargine (Lantus Per Unit Charge) 7 units SQ BID [facility] Stop: 03/13/23 20:59 Last Admin: 02/15/23 09:00 Dose: 7 units Levothyroxine Sodium (Levothyroxine Sodium 75 Mcg Tablet) 75 mcg PO DAILYBB [facility] Stop: 03/14/23 06:29 Last Admin: 02/15/23 05:39 Dose: 75 mcg Losartan Potassium (Losartan Potassium 50 Mg Tab) 50 mg PO QAM [facility] Stop: 03/14/23 08:59 Last Admin: 02/15/23 08:55 Dose: 50 mg Miscellaneous (Carbohydrates For Hypoglycemia ) 15 - 30 gm PO UD PRN PRN Reason: Hypoglycemia Protocol Stop: 03/13/23 18:38 Miscellaneous Information (Vancomycin Consult Active) 1 each N/A UD PRN PRN Reason: Consult Stop: 03/14/23 05:32 Pravastatin Sodium (Pravastatin Sod 40 Mg Tab) 40 mg PO HS [facility] Stop: 03/13/23 20:59 Last Admin: 02/14/23 20:36 Dose: 40 mg (2) Pneumonia Laterality: left Lung location: unspecified part of lung Pneumonia type: due to unspecified organism Qualified Code(s): J18.9 - Pneumonia, unspecified organism
[2023-02-15 13:45] LABS: Hematocrit (blood only) 37.1 % (37.0-47.0); Hemoglobin 11.9 g/dl (12.0-16.0); Mean Corpuscular Hemoglobin 29.4 pg (25.0-34.0); Mean Corpuscular Hgb Conc 32.1 g/dL (32.0-36.0); Mean Corpuscular Volume 91.6 fL (80.0-100.0); Mean Platelet Volume 9.9 fL (9.4-12.4); Platelet Count 366 K/uL (130-400); RDW Standard Deviation 47.5 fL (36.4-46.3); Red Blood Count 4.05 M/uL (4.20-5.40)
[2023-02-15 14:14] LABS: Calcium 9.1 mg/dl (8.6-10.3); Potassium 3.9 mmol/L (3.5-5.1)
[2023-02-15 14:20] LABS: BUN Creatinine Ratio 19.8 (10-20); C Reactive Protein 2.54 mg/dl (0-0.5); Creatinine Clr Calc Pharmacy 33.9 ml/min; Est GFR (African American) 45.9 ml/min; Est GFR (Non-African American) 39.6 ml/min
--- NOTE | 2023-02-15 15:23 | XRay Report ---
SINGLE VIEW CHEST CLINICAL HISTORY: PICC placement. FINDINGS: An AP, portable, upright chest radiograph is compared to chest x-ray and chest CT dated 01/26. A left-sided PICC line has been placed. The tip of the catheter projects over the SVC. Postsu rgical changes seen at the aortic root. The heart is top normal for projection noting atherosclerotic calcification of the thoracic aorta. The pulmonary vasculature is noncongested. Chronic interstitial thickening similar to previous. There is bibasilar scarring/atelectasis. Left upper lobe consolidati on has almost completely cleared as compared to previous. No large pleural effusion or pneumothorax i s identified. The skeletal structures are osteopenic. The bony thorax is grossly intact. IMPRESSION: 1. A left-sided PICC line has been placed as above. 2. Left upper lobe consolidation has almost completely cleared as compared to 02/11/2023. ACT 112: Negative or not required by law. Electronically signed by: Cecilio Howe M.D. 02/15/2023 3:21 PM
[2023-02-15] MEDS: cefTRIAXone SODIUM 2,000 MG in DEXTROSE 5% 50 ML IV SCH (16:59)
--- NOTE | 2023-02-15 18:05 | Ultrasound Report ---
ULTRASOUND BILATERAL LOWER EXTREMITY VENOUS CLINICAL HISTORY: Tachycardia. Lower extremity edema. COMPARISON STUDY: No priors. TECHNIQUE: Real-time, grayscale, and color Doppler sonography of the deep veins of the right and left lower extremity was performed from the inguinal crease to the calf. Compression and augmentation wer e utilized. FINDINGS: There is no sonographic evidence of deep venous thrombosis identified in the right or left lower extremity. The common femoral, superficial femoral, and popliteal veins are patent and normally compressible bilaterally. The greater saphenous vein and the profunda femoris vein at the junction w ith the common femoral vein are clear in both legs. The visualized calf veins are patent bilaterally. IMPRESSION: There is no sonographic evidence of deep venous thrombosis identified in the right or lef t lower extremity. ACT 112: Negative or not required by law. Electronically signed by: Cecilio Howe M.D. 02/15/2023 6:04 PM
== END 2023-02-15 18:45 | disposition home health service (06) | DRG 193 ==
LOC: ED 12:49 → 3W 17:19 → SUATTDRO 17:19 → 3W 17:53

== ENCOUNTER 2024-10-22 09:15 | Inpatient (IN) ==
--- NOTE | 2024-10-22 09:40 | Emergency Department Note ---
Impression & Plan Acute dyspnea, Non-ST elevation AR (NSTEMI), Elevated brain natriuretic peptide (BNP) level, Rhinovirus infection, Enterovirus infection ED Provider Note HISTORY OF PRESENT ILLNESS: Patient is a an 83-year-old female presenting with progressively worsening shortness of breath over the last 6 days. Patient initially started having just a cough and some mild shortness of breath 6 days ago, but symptoms have progressively worsened. Patient was started on a Z-Yonatan by her primary doctor 3 days ago and still has 2 days left of that medicine. She is on prednisone as well with little relief in her symptoms. Patient denies any DVT or PE history. She is on 81 mg aspirin daily. She has a history of a valve replacement but no history of cardiac stents. She denies any measured fevers at home, but reports that the other night she was sleeping with a heated blanket and woke up drenched in sweat. She has had multiple sick contact exposures with family members. Reports shortness of breath is worse when she is trying to talk. She does report that her cough has been productive of a brownish colored sputum. ROS: as above PHYSICAL EXAM: Constitutional: Patient appears in no acute distress. HENT: Head: Normocephalic and atraumatic. Eyes: EOMI, PERRL Mouth/Throat: Mucous membranes moist. Neck: Trachea midline. Neck supple. Cardiovascular: Tachycardic with regular rhythm. No murmurs, rubs or gallops. Intact distal pulses. Pulmonary/Chest: No respiratory distress. Breath sounds clear and equal bilaterally. Conversationally dyspneic. Diffuse expiratory wheezes bilaterally. Abdominal: Abdomen soft, no tenderness, rebound or guarding. Musculoskeletal: No edema, tenderness or deformity noted. Skin: Warm and dry. No rash, erythema, pallor or cyanosis Psychiatric: Appropriate mood and affect for situation. Neurological: Alert and keenly responsive. CN II-XII grossly intact, moving all extremities equally and fully. MDM: - Vitals signs showed hypertension and tachycardia. - History obtained via patient. History as above. - Chronic conditions affecting care: DM-2; HLD; hypothyroidism; CHF - Differential diagnoses include, but are not limited to: Congestive heart failure; acute coronary syndrome; COPD/asthma exacerbation; pulmonary edema; pulmonary embolism; pneumonia; pneumothorax; viral syndrome - Order placed for continuous cardiac monitoring. At this time, monitor showed rate of 84 bpm with normal sinus rhythm, per my interpretation. - External medical records reviewed. Primary care visit note from earlier today was reviewed. Patient was seen for worsening upper respiratory symptoms. Her symptoms that started 6 days ago. She was treated prednisone and is still not feeling any better. Of note, the state that her oxygen saturations were 88 to 92% on room air at rest. - EKG interpreted by myself showed normal sinus rhythm. Rate 102 bpm. QT 330. No acute ischemic changes. - Laboratory workup interpreted by myself showed leukocytosis (WBC 16.55); normal PT/INR; stable electrolytes; CKD (Cr 1.34); elevated troponin (21.6); elevated BNP (202) - UA negative for pneumonia - VBG normal - Viral respiratory panel positive for rhinovirus/enterovirus - CXR negative for pneumonia, per my interpretation. Noted have some perihilar vascular congestion, per my interpretation. - Patient's leukocytosis may be reactive from her current prednisone dosing. She ambulated without any desaturation, but is profoundly short of breath and conversationally dyspneic on reassessment. Discussed options with the patient and her family would feel more comfortable if she was admitted to the hospital, she lives alone and is still short of breath. Patient does have a history of CHF but has not required Lasix use in over 2 years. She may have a slight CHF component to her viral illness, so 20 mg IV Lasix was ordered. - Discussion was had with gearcase assembler about patient's case and need for admission - Hospitalist consulted for admission - [facility] ASSESSMENT AND PLAN: Diagnosis: Acute dyspnea; NSTEMI; elevated BNP; rhinovirus infection; enterovirus infection Plan: Admit Past Med/Surg History Problem List (Updated 10/22/24 @ 12:53 by Gabrielle Mansfield MD) Enterovirus infection (Acute) Rhinovirus infection (Acute) Elevated brain natriuretic peptide (BNP) level (Acute) Non-ST elevation AR (NSTEMI) (Acute) Acute dyspnea (Acute) Acute bronchitis Headache Sinus congestion Cough Viral respiratory illness Current use of proton pump inhibitor Sleep apnea Status post transcatheter aortic valve replacement (TAVR) using bioprosthesis UTI (urinary tract infection) Cellulitis Abnormal CT scan of lung Nonobstructive atherosclerosis of coronary artery Chronic diastolic congestive heart failure Benign essential hypertension (Acute) Generalized osteoarthritis of multiple sites (Acute) Hyperlipidemia (Acute) Hypothyroidism (Acute) 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 (Acute) Osteopenia (Acute) Peripheral vascular disease (Acute) Type 2 diabetes mellitus (Acute) Vertigo Recommend PT- she declines for now but will condiser Medical History Hypoxia Bacteremia Acute respiratory distress Hypoxia Pneumonia CAP (community acquired pneumonia) Dermatitis Hypoxemia Hypercapnic respiratory failure Acute diastolic (congestive) heart failure Aortic stenosis No pertinent past medical history Surgical History History of surgical removal of ganglion cyst History of tubal ligation Family History Father Dementia Mother Lung cancer Grandmother Heart disease Other Family history non-contributory Denies family history of Ovarian cancer Prostate cancer Myocardial infarction Breast cancer Colorectal cancer Stroke Social History Smoking Status: Never smoker Second Hand Exposure: No; Do You Dip or Chew Tobacco: No; Hx Alcohol Use: No Hx Substance Use: No Preferred Language: Bulgarian Communication Ability: Effective Visual Impairment: Limited Hearing Ability: Use of Hearing Aid Test Tube Maker Required: No Beliefs That Will Affect Care: None marital status: / Current Living Situation: Alone Current Living Situation Comment: house current occupational status: retired How many Children do You have: 6 How many Children do You have Comment: 2 boys 4 girls Feels Safe at Home: Yes Childhood Exposure to Second-Hand Smoke: Yes Diet: regular during the past year weight has: remained stable Dental Care, Regularly: Yes Physical Activity Frequency: 3-4 Times per Week Seatbelt Use: always Sunscreen Use: Yes Assistive Devices: Cane, Oxygen - Continuous, Walker and Wheelchair Allergies Allergies Allergy/AdvReac Type Severity Reaction Status Date / Time adhesive Allergy Mild SKIN Verified 10/22/24 08:04 IRRITATION KINJAL Inhibitors Allergy Unknown LISTED ON Verified 10/22/24 08:04 MNPG Penicillins Allergy Unknown CAN'T Verified 10/22/24 08:04 REMEMBER Home Meds Home Medications Medication Instructions Recorded Confirmed calcium 600 mg (as carbonate)-vit 1 tab PO BID 12/22/18 10/22/24 D3 20 mcg (800 unit) chewable tablet (Caltrate plus D) Oxygen Home #1 ea 01/20/20 10/22/24 omega 5-qdl-rec-fish oil 1,000 mg 1 cap PO AMHS 08/09/20 10/22/24 (120 mg-180 mg) capsule (Fish Oil) aspirin 81 mg tablet,delayed 81 mg PO HS 02/11/23 10/22/24 release mecobalamin (vitamin B12) 1,000 1,000 mcg sublingual QAM 02/11/23 10/22/24 mcg disintegrating tablet,sublingual clindamycin HCl 300 mg capsule 600 mg PO UD PRN Prior to dental 12/09/23 10/22/24 appointments pravastatin 40 mg tablet 0 mg PO HS 10/22/24 10/22/24 Previous Rx's Medication Instructions Recorded candesartan 16 mg tablet See Rx Instructions .Route 10/01/24 .COMPLEX #90 tabs metformin 500 mg tablet 500 mg PO QAM #90 tabs 10/09/24 levothyroxine 75 mcg tablet 75 mcg PO DAILY #90 tabs 10/14/24 azithromycin 250 mg tablet See Rx Instructions PO .COMPLEX #6 10/20/24 tabs prednisone 20 mg tablet 40 mg (2 x 20 mg) PO QAM #10 tabs 10/20/24 Results & Data (ED) Vital Signs Vital Signs - 24 hr 10/22/24 09:16 10/22/24 09:19 10/22/24 09:20 Temperature 36.6 C Temperature Source Oral Pulse Rate 96 H Pulse Rate [Apical] 102 H Pulse Rate [Exercises] Pulse Rate from SpO2 Sensor Pulse Rhythm Regular Pulse Rhythm [Apical] Pulse Strength Normal Respiratory Rate 16 18 Respiratory Rate [Exercises] Respiratory Effort / Characteristics Non-Labored Spontaneous Respiratory Depth Normal Respiratory Pattern Regular Blood Pressure 155/61 H Blood Pressure [Left Arm] 152/84 H Blood Pressure Mean 92 Blood Pressure Mean [Left Arm] 106 Blood Pressure Position Sitting Blood Pressure Position [Left Arm] Pulse Oximetry 93 91 93 Pulse Oximetry [Exercises] Oxygen Delivery Method Room Air Sepsis Recent Fever Within 48 Hours No Sepsis New/Unexplained Change in Mental Status No Sepsis Action Taken by Nursing No Action Required 10/22/24 09:39 10/22/24 09:48 10/22/24 10:14 Temperature Temperature Source Pulse Rate 90 87 89 Pulse Rate [Apical] Pulse Rate [Exercises] Pulse Rate from SpO2 Sensor 92 H 92 H Pulse Rhythm Pulse Rhythm [Apical] Pulse Strength Respiratory Rate 24 17 Respiratory Rate [Exercises] Respiratory Effort / Characteristics Respiratory Depth Respiratory Pattern Blood Pressure Blood Pressure [Left Arm] Blood Pressure Mean Blood Pressure Mean [Left Arm] Blood Pressure Position Blood Pressure Position [Left Arm] Pulse Oximetry 92 92 Pulse Oximetry [Exercises] Oxygen Delivery Method Sepsis Recent Fever Within 48 Hours Sepsis New/Unexplained Change in Mental Status Sepsis Action Taken by Nursing 10/22/24 10:22 10/22/24 10:22 10/22/24 10:24 Temperature Temperature Source Pulse Rate 96 H Pulse Rate [Apical] Pulse Rate [Exercises] Pulse Rate from SpO2 Sensor 92 H Pulse Rhythm Pulse Rhythm [Apical] Pulse Strength Respiratory Rate 32 H Respiratory Rate [Exercises] Respiratory Effort / Characteristics Respiratory Depth Respiratory Pattern Blood Pressure 112/59 L 112/59 L Blood Pressure [Left Arm] Blood Pressure Mean 86 86 Blood Pressure Mean [Left Arm] Blood Pressure Position Blood Pressure Position [Left Arm] Pulse Oximetry 93 Pulse Oximetry [Exercises] Oxygen Delivery Method Sepsis Recent Fever Within 48 Hours Sepsis New/Unexplained Change in Mental Status Sepsis Action Taken by Nursing 10/22/24 10:30 10/22/24 10:30 10/22/24 10:48 Temperature Temperature Source Pulse Rate 93 H 94 H Pulse Rate [Apical] Pulse Rate [Exercises] Pulse Rate from SpO2 Sensor 97 H 98 H Pulse Rhythm Pulse Rhythm [Apical] Pulse Strength Respiratory Rate 20 25 H Respiratory Rate [Exercises] Respiratory Effort / Characteristics Respiratory Depth Respiratory Pattern Blood Pressure 117/59 L Blood Pressure [Left Arm] Blood Pressure Mean 72 Blood Pressure Mean [Left Arm] Blood Pressure Position Blood Pressure Position [Left Arm] Pulse Oximetry 92 93 Pulse Oximetry [Exercises] Oxygen Delivery Method Sepsis Recent Fever Within 48 Hours Sepsis New/Unexplained Change in Mental Status Sepsis Action Taken by Nursing 10/22/24 11:00 10/22/24 11:00 10/22/24 11:11 Temperature Temperature Source Pulse Rate 97 H Pulse Rate [Apical] Pulse Rate [Exercises] 108 H Pulse Rate from SpO2 Sensor 98 H Pulse Rhythm Pulse Rhythm [Apical] Pulse Strength Respiratory Rate 22 Respiratory Rate [Exercises] 18 Respiratory Effort / Characteristics Respiratory Depth Respiratory Pattern Blood Pressure 113/62 Blood Pressure [Left Arm] Blood Pressure Mean 72 Blood Pressure Mean [Left Arm] Blood Pressure Position Blood Pressure Position [Left Arm] Pulse Oximetry 92 Pulse Oximetry [Exercises] 94 Oxygen Delivery Method Room Air Sepsis Recent Fever Within 48 Hours Sepsis New/Unexplained Change in Mental Status Sepsis Action Taken by Nursing 10/22/24 11:13 10/22/24 11:30 10/22/24 12:30 Temperature Temperature Source Pulse Rate 95 H 83 Pulse Rate [Apical] 91 H Pulse Rate [Exercises] Pulse Rate from SpO2 Sensor Pulse Rhythm Pulse Rhythm [Apical] Pulse Strength Respiratory Rate 16 22 21 Respiratory Rate [Exercises] Respiratory Effort / Characteristics Respiratory Depth Respiratory Pattern Blood Pressure 110/58 L 107/54 L Blood Pressure [Left Arm] 113/62 Blood Pressure Mean 77 71 Blood Pressure Mean [Left Arm] 79 Blood Pressure Position Blood Pressure Position [Left Arm] Pulse Oximetry 94 Pulse Oximetry [Exercises] Oxygen Delivery Method Room Air Sepsis Recent Fever Within 48 Hours Sepsis New/Unexplained Change in Mental Status Sepsis Action Taken by Nursing 10/22/24 13:12 Temperature Temperature Source Pulse Rate Pulse Rate [Apical] 98 H Pulse Rate [Exercises] Pulse Rate from SpO2 Sensor Pulse Rhythm Pulse Rhythm [Apical] Regular Pulse Strength Respiratory Rate 20 Respiratory Rate [Exercises] Respiratory Effort / Characteristics Non-Labored Spontaneous Respiratory Depth Normal Respiratory Pattern Regular Blood Pressure Blood Pressure [Left Arm] 119/78 Blood Pressure Mean Blood Pressure Mean [Left Arm] 91 Blood Pressure Position Blood Pressure Position [Left Arm] Lying Pulse Oximetry 97 Pulse Oximetry [Exercises] Oxygen Delivery Method Room Air Sepsis Recent Fever Within 48 Hours Sepsis New/Unexplained Change in Mental Status Sepsis Action Taken by Nursing Laboratory Data 10/22/24 09:30 10/22/24 09:30 Lab Results 10/22/24 10/22/24 10/22/24 Range/Units 09:30 09:40 11:12 WBC 16.55 H (4.8-10.8) K/ul RBC 4.16 L (4.20-5.40) M/uL Hgb 12.3 (12.0-16.0) g/dl Hct 37.7 (37.0-47.0) % MCV 90.6 (80.0-100.0) fL MCH 29.6 (25.0-34.0) pg MCHC 32.6 (32.0-36.0) g/dL RDW Std Deviation 47.7 H (36.4-46.3) fL RDW Coeff of Julieta 14.4 (11.5-14.5) % Plt Count 325 (130-400) K/uL MPV 10.2 (9.4-12.4) fL Immature Gran % (Auto) 0.7 % Neut % (Auto) 83.7 % Lymph % (Auto) 8.3 % Glascock % (Auto) 6.9 % Eos % (Auto) 0.2 % Baso % (Auto) 0.2 % Neut # (Auto) 13.85 H (1.40-6.50) K/uL Lymph # (Auto) 1.38 (1.20-3.40) K/uL Glascock # (Auto) 1.14 H (0.11-0.59) K/uL Eos # (Auto) 0.03 (0.00-0.50) K/uL Baso # (Auto) 0.03 (0.00-0.20) K/uL Immature Gran # (Auto) 0.12 (0.01-0.20) K/uL PT 10.2 (9.0-12.0) Seconds INR 0.9 (0.9-1.1) VBG pH 7.36 (7.36-7.41) VBG pCO2 47 (38-50) mmHg VBG pO2 62 mmHg VBG HCO3 27 mmol/L VBG O2 Saturation 91.4 % VBG Base Excess 0.6 mEq/L Sodium 136 (136-145) mmol/L Potassium 4.3 (3.5-5.1) mmol/L Chloride 102 (98-107) mmol/L Carbon Dioxide 27 (21-32) mmol/L Anion Gap 7 (3-11) BUN 28 H (6-23) mg/dl Creatinine 1.34 H (0.6-1.2) mg/dl Est Cr Clr Drug Dosing 29.9 ml/min eGFR 39.34 BUN/Creatinine Ratio 20.9 H (10-20) Glucose 126 H (70-99(Fasting)) mg/dl Calcium 9.4 (8.6-10.3) mg/dl Magnesium 2.1 (1.7-2.4) mg/dl Total Bilirubin 0.6 (0.2-1.0) mg/dl AST 35 (13-39) U/L ALT 26 (7-52) U/L Alkaline Phosphatase 71 (34-104) U/L Troponin I High Sens 21.6 H 16.4 H D (0-14) pg/ml B-Natriuretic Peptide 202 H (0-100) pg/ml Total Protein 7.6 (6.0-8.3) gm/dl Albumin 4.1 (3.4-5.0) gm/dl Globulin 3.5 (2.5-4.0) gm/dl Albumin/Globulin Ratio 1.2 (0.9-2) Urine Color Yellow Urine Appearance Clear (Clear) Urine pH 6.0 (4.5-7.5) Ur Specific Merrill 1.006 (1.000-1.030) Urine Protein Negative (Negative) Urine Glucose (UA) Negative (Negative) Urine Ketones Negative (Negative) Urine Blood Negative (Negative) Urine Nitrite Negative (Negative) Urine Bilirubin Negative (Negative) Urine Urobilinogen Negative (Negative) Ur Leukocyte Esterase Negative (Negative) Adenovirus (PCR) Not Detected (NotDetected) B. pertussis DNA (PCR) Not Detected (NotDetected) B.parapertussis DNA PCR Not Detected (NotDetected) C. pneumoniae DNA (PCR) Not Detected (NotDetected) Coronavirus OC43 (PCR) Not Detected (NotDetected) Coronavirus HKU1 (PCR) Not Detected (NotDetected) Coronavirus 229E (PCR) Not Detected (NotDetected) SARS-CoV-2 (PCR) Not Detected (NotDetected) Coronavirus NL63 (PCR) Not Detected (NotDetected) Human Metapneumovir PCR Not Detected (NotDetected) Influenza Type A (PCR) Not Detected (NotDetected) Influenza Type B (PCR) Not Detected (NotDetected) M. pneumoniae (PCR) Not Detected (NotDetected) Parainfluenza 1 (PCR) Not Detected (NotDetected) Parainfluenza 2 (PCR) Not Detected (NotDetected) Parainfluenza 3 (PCR) Not Detected (NotDetected) Parainfluenza 4 (PCR) Not Detected (NotDetected) RSV (PCR) Not Detected (NotDetected) Entero/Rhino (PCR) DETECTED A (NotDetected) 12/26/24 Range/Units 12:59 WBC (4.8-10.8) K/ul RBC (4.20-5.40) M/uL Hgb (12.0-16.0) g/dl Hct (37.0-47.0) % MCV (80.0-100.0) fL MCH (25.0-34.0) pg MCHC (32.0-36.0) g/dL RDW Std Deviation (36.4-46.3) fL RDW Coeff of Julieta (11.5-14.5) % Plt Count (130-400) K/uL MPV (9.4-12.4) fL Immature Gran % (Auto) % Neut % (Auto) % Lymph % (Auto) % Glascock % (Auto) % Eos % (Auto) % Baso % (Auto) % Neut # (Auto) (1.40-6.50) K/uL Lymph # (Auto) (1.20-3.40) K/uL Glascock # (Auto) (0.11-0.59) K/uL Eos # (Auto) (0.00-0.50) K/uL Baso # (Auto) (0.00-0.20) K/uL Immature Gran # (Auto) (0.01-0.20) K/uL PT (9.0-12.0) Seconds INR (0.9-1.1) VBG pH (7.36-7.41) VBG pCO2 (38-50) mmHg VBG pO2 mmHg VBG HCO3 mmol/L VBG O2 Saturation % VBG Base Excess mEq/L Sodium (136-145) mmol/L Potassium (3.5-5.1) mmol/L Chloride (98-107) mmol/L Carbon Dioxide (21-32) mmol/L Anion Gap (3-11) BUN (6-23) mg/dl Creatinine (0.6-1.2) mg/dl Est Cr Clr Drug Dosing ml/min eGFR BUN/Creatinine Ratio (10-20) Glucose (70-99(Fasting)) mg/dl Calcium (8.6-10.3) mg/dl Magnesium (1.7-2.4) mg/dl Total Bilirubin (0.2-1.0) mg/dl AST (13-39) U/L ALT (7-52) U/L Alkaline Phosphatase (34-104) U/L Troponin I High Sens 16.2 H (0-14) pg/ml B-Natriuretic Peptide (0-100) pg/ml Total Protein (6.0-8.3) gm/dl Albumin (3.4-5.0) gm/dl Globulin (2.5-4.0) gm/dl Albumin/Globulin Ratio (0.9-2) Urine Color Urine Appearance (Clear) Urine pH (4.5-7.5) Ur Specific Merrill (1.000-1.030) Urine Protein (Negative) Urine Glucose (UA) (Negative) Urine Ketones (Negative) Urine Blood (Negative) Urine Nitrite (Negative) Urine Bilirubin (Negative) Urine Urobilinogen (Negative) Ur Leukocyte Esterase (Negative) Adenovirus (PCR) (NotDetected) B. pertussis DNA (PCR) (NotDetected) B.parapertussis DNA PCR (NotDetected) C. pneumoniae DNA (PCR) (NotDetected) Coronavirus OC43 (PCR) (NotDetected) Coronavirus HKU1 (PCR) (NotDetected) Coronavirus 229E (PCR) (NotDetected) SARS-CoV-2 (PCR) (NotDetected) Coronavirus NL63 (PCR) (NotDetected) Human Metapneumovir PCR (NotDetected) Influenza Type A (PCR) (NotDetected) Influenza Type B (PCR) (NotDetected) M. pneumoniae (PCR) (NotDetected) Parainfluenza 1 (PCR) (NotDetected) Parainfluenza 2 (PCR) (NotDetected) Parainfluenza 3 (PCR) (NotDetected) Parainfluenza 4 (PCR) (NotDetected) RSV (PCR) (NotDetected) Entero/Rhino (PCR) (NotDetected) Administered Medications Discontinued Medications Albuterol (Albut/Ipratrop 3mg/0.5mg Neb 3 Ml Vial) 3 ml NEB NOW STA; Protocol Stop: 10/22/24 09:46 Last Admin: 10/22/24 09:54 Dose: 3 ml Documented By: CRYSTAL Furosemide (Furosemide Inj 20 Mg/2 Ml Vial) 20 mg IV ONE ONE Stop: 10/22/24 12:48 Last Admin: 10/22/24 13:21 Dose: 20 mg Documented By: [facility] Imaging Data Radiologist's Impression: Chest X-Ray 10/22/24 09:20 XR chest 1V portable CLINICAL HISTORY: Dyspnea TECHNIQUE: Single frontal radiograph of the chest was obtained. Comparison: Comparison is made to chest radiograph 07/31/2023 FINDINGS: No lines and tubes are seen. Aortic prosthesis is seen. Calcification is seen in the aorta. The lungs are clear. No evidence of pleural effusion or pneumothorax. IMPRESSION: No acute abnormalities and in particular no radiographic evidence of pneumonia. ACT 112: Negative or not required by law. Electronically signed by: Jay Jerome M.D. 10/22/2024 9:41 AM Discharge Plan Visit Data Chief Complaint: Referred by Doctor Stated Complaint: COUGH, SOB, POSSIBLE PNEMONIA, DR HERNANDEZ REFERRED ED Provider: Gabrielle Mansfeild Discharge Problem: Acute dyspnea, Non-ST elevation AR (NSTEMI), Elevated brain natriuretic peptide (BNP) level, Rhinovirus infection, Enterovirus infection Forms Stand Alone Forms: My [facility] [employer] Prescriptions Prescriptions: No Action candesartan 16 mg tablet See Rx Instructions .ROUTE .COMPLEX Qty: 90 3RF Dose Instruction: TAKE 1 TABLET DAILY IN THE MORNING Rx Instructions: TAKE 1 TABLET DAILY IN THE MORNING metformin 500 mg tablet 500 mg PO QAM Qty: 90 3RF Dose Instruction: TAKE 1 TABLET TWICE A DAY levothyroxine 75 mcg tablet 75 mcg PO DAILY Qty: 90 3RF (DME) Oxygen Home Liters Per Minute See Rx Instructions .ROUTE .MEDSUPPLY Qty: 1 Rx Instructions: 2 Liters prn clindamycin HCl 300 mg capsule 600 mg PO UD PRN (Reason: Prior to dental appointments) Rx Instructions: dentist appointments prednisone 20 mg tablet 40 mg PO QAM Qty: 10 0RF Rx Instructions: Unable to verify med at this date/time. azithromycin 250 mg tablet See Rx Instructions PO .COMPLEX Qty: 6 0RF Rx Instructions: take 500 mg today (day 1), then 250 mg for 4 days (days 2-5). Start Date 10/20/24 - End Date 10/24/24 Caltrate 600 plus D 600 mg (1,500 mg)-800 unit Tablet,Chewable 1 tab PO BID Rx Instructions: Unable to verify OTC meds at this date/time. omega 9-opc-hls-fish oil [Fish Oil] 1,000 mg (120 mg-180 mg) capsule 1 cap PO AMHS Rx Instructions: Unable to verify OTC meds at this date/time. aspirin 81 mg Tablet,Delayed Release (Dr/Ec) 81 mg PO HS Rx Instructions: Unable to verify OTC meds at this date/time. mecobalamin (vitamin B12) 1,000 mcg tablet,disintegrating 1,000 mcg sublingual QAM Rx Instructions: Unable to verify OTC meds at this date/time. pravastatin 40 mg tablet 0 mg PO HS Rx Instructions: Last filled 9* x90 day supply. Original Directions: Take 40mg by mouth every morning Referrals Referrals: Pasha Rushing MD [Primary Care Provider] -
[2024-10-22 09:43] LABS: Base Excess VBG 0.6 mEq/L; HCO3 VBG 27 mmol/L; Oxygen Saturation VBG 91.4 %; PCO2 VBG 47 mmHg (38-50); PO2 VBG 62 mmHg; pH VBG 7.36 (7.36-7.41)
[2024-10-22] MEDS: ALBUT/IPRATROP 3MG/0.5MG NEB 3 ML VIAL NEB STA (09:54)
[2024-10-22 09:57] LABS: Basophils # (auto) 0.03 K/uL (0.00-0.20); Basophils % (auto) 0.2 %; Eosinophils # (auto) 0.03 K/uL (0.00-0.50); Eosinophils % (auto) 0.2 %; Hematocrit (blood only) 37.7 % (37.0-47.0); Hemoglobin 12.3 g/dl (12.0-16.0); Immature Granulocytes # (auto) 0.12 K/uL (0.01-0.20); Immature Granulocytes % (auto) 0.7 %; Lymphocytes # (auto) 1.38 K/uL (1.20-3.40); Lymphocytes % (auto) 8.3 %; Mean Corpuscular Hemoglobin 29.6 pg (25.0-34.0); Mean Corpuscular Hgb Conc 32.6 g/dL (32.0-36.0); Mean Corpuscular Volume 90.6 fL (80.0-100.0); Mean Platelet Volume 10.2 fL (9.4-12.4); Monocytes # (auto) 1.14 K/uL (0.11-0.59); Monocytes % (auto) 6.9 %; Neutrophils # (auto) 13.85 K/uL (1.40-6.50); Neutrophils % (auto) 83.7 %; Platelet Count 325 K/uL (130-400); RDW Coefficient of Variation 14.4 % (11.5-14.5); RDW Standard Deviation 47.7 fL (36.4-46.3); Red Blood Count 4.16 M/uL (4.20-5.40); White Blood Count 16.55 K/ul (4.8-10.8)
[2024-10-22 09:59] LABS: Appearance Urine Clear (Clear); Bilirubin Urine Negative (Negative); Blood Urine Negative (Negative); Color Urine Yellow; Glucose Urine UA Negative (Negative); Ketones Urine Negative (Negative); Leukocyte Esterase Urine Negative (Negative); Nitrite Urine Negative (Negative); Protein Urine Negative (Negative); Specific Gravity Urine 1.006 (1.000-1.030); Urobilinogen Urine Negative (Negative)
[2024-10-22 10:10] LABS: Albumin Globulin Ratio 1.2 (0.9-2); Albumin Level 4.1 gm/dl (3.4-5.0); BUN Creatinine Ratio 20.9 (10-20); Bilirubin,Total 0.6 mg/dl (0.2-1.0); Calcium 9.4 mg/dl (8.6-10.3); Creatinine Clr Calc Pharmacy 29.9 ml/min; Globulin 3.5 gm/dl (2.5-4.0); Magnesium 2.1 mg/dl (1.7-2.4); Potassium 4.3 mmol/L (3.5-5.1); Total Protein 7.6 gm/dl (6.0-8.3)
[2024-10-22 10:16] LABS: Troponin I High Sensitivity 21.6 pg/ml (0-14)
[2024-10-22 10:19] LABS: INR 0.9 (0.9-1.1); Prothrombin Time 10.2 Seconds (9.0-12.0)
[2024-10-22 10:38] LABS: Adenovirus PCR Not Detected (NotDetected); Bordetella parapertussis PCR Not Detected (NotDetected); Bordetella pertussis PCR Not Detected (NotDetected); Chlamydia pneumoniae PCR Not Detected (NotDetected); Coronavirus 229E PCR Not Detected (NotDetected); Coronavirus CoV-2 (COVID19)PCR Not Detected (NotDetected); Coronavirus HKU1 PCR Not Detected (NotDetected); Coronavirus NL63 PCR Not Detected (NotDetected); Coronavirus OC43PCR Not Detected (NotDetected); Human Metapneumovirus PCR Not Detected (NotDetected); Influenza A PCR Not Detected (NotDetected); Influenza B PCR Not Detected (NotDetected); Mycoplasma pneumoniae PCR Not Detected (NotDetected); Parainfluenza Virus 1 PCR Not Detected (NotDetected); Parainfluenza Virus 2 PCR Not Detected (NotDetected); Parainfluenza Virus 3 PCR Not Detected (NotDetected); Parainfluenza Virus 4 PCR Not Detected (NotDetected); Respiratory Syncytial VirusPCR Not Detected (NotDetected); Rhinovirus/Enterovirus PCR DETECTED (NotDetected)
--- NOTE | 2024-10-22 12:46 | Electrocardiogram Report ---
Test Reason : Blood Pressure : */* mmHG Vent. Rate : 102 BPM Atrial Rate : 102 BPM P-R Int : 168 ms QRS Dur : 78 ms QT Int : 330 ms P-R-T Axes : 73 40 102 degrees QTcB Int : 430 ms Sinus tachycardia with Premature atrial complexes Abnormal ECG When compared with ECG of 11-Feb-2023 13:12, Premature ventricular complexes are no longer Present Premature atrial complexes are now Present Confirmed by Brad Matthews ([id number]) on 10/22/2024 12:46:12 PM Referred By: Tari Donato Confirmed By: Brad Matthews
[2024-10-22] MEDS: FUROSEMIDE INJ 20 MG/2 ML VIAL IV ONE (13:21)
[2024-10-22] MEDS: methylPREDNISolone 125 MG/2 ML VIAL IV STA (14:27)
--- NOTE | 2024-10-22 15:55 | History & Physical Report ---
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 In the past patient has also had an MRSA bacteremia. Was given Lasix in the emergency department for consideration of heart failure preserved ejection fraction. Most recent echocardiogram from January 2023 showed preserved ejection fraction Will continue candesartan or formulary equivalent pravastatin and baby aspirin (3) Type 2 diabetes mellitus: Plan: Patient takes metformin for diabetes she is on a carbohydrate conservative diet will continue metformin have a very loose sliding scale for glucose is over 200 DVT prevention will be heparin subcu Patient is a full code History of Present Illness Primary Care Provider: Pasha Rushing MD 83-year-old female who presents progressive shortness of breath found to have rhinovirus enterovirus in the emergency department. As an outpatient she has been on the Z-Yonatan and Augmentin with prednisone per family doctor without relief. Patient has a significant cardiac history with valve replacement and coronary artery disease. He states he has been using oxygen which she has had at home since that time (2018) She denies having fevers or chills productive cough nausea vomiting or diarrhea she has had decreased oral intake because she is felt so ill Allergies Allergy/AdvReac Type Severity Reaction Status Date / Time adhesive Allergy Mild SKIN Verified 10/22/24 08:04 IRRITATION KINJAL Inhibitors Allergy Unknown LISTED ON Verified 10/22/24 08:04 MNPG Penicillins Allergy Unknown CAN'T Verified 10/22/24 08:04 REMEMBER Home Medications Medication Instructions Recorded Confirmed Type calcium 600 mg (as carbonate)-vit 1 tab PO BID 12/22/18 10/22/24 History D3 20 mcg (800 unit) chewable tablet (Caltrate plus D) Oxygen Home #1 ea 01/20/20 10/22/24 History omega 8-owh-xrz-fish oil 1,000 mg 1 cap PO AMHS 08/09/20 10/22/24 History (120 mg-180 mg) capsule (Fish Oil) aspirin 81 mg tablet,delayed 81 mg PO HS 02/11/23 10/22/24 History release mecobalamin (vitamin B12) 1,000 1,000 mcg sublingual QAM 02/11/23 10/22/24 History mcg disintegrating tablet,sublingual clindamycin HCl 300 mg capsule 600 mg PO UD PRN Prior to dental 12/09/23 10/22/24 History appointments candesartan 16 mg tablet See Rx Instructions .Route 10/01/24 10/22/24 Rx .COMPLEX #90 tabs metformin 500 mg tablet 500 mg PO QAM #90 tabs 10/09/24 10/22/24 Rx levothyroxine 75 mcg tablet 75 mcg PO DAILY #90 tabs 10/14/24 10/22/24 Rx azithromycin 250 mg tablet See Rx Instructions PO .COMPLEX #6 10/20/24 10/22/24 Rx tabs prednisone 20 mg tablet 40 mg (2 x 20 mg) PO QAM #10 tabs 10/20/24 10/22/24 Rx pravastatin 40 mg tablet 0 mg PO HS 10/22/24 10/22/24 History Past Med/Surg History Problem List (Updated 10/22/24 @ 12:53 by Gabrielle Mansfield MD) Enterovirus infection (Acute) Rhinovirus infection (Acute) Elevated brain natriuretic peptide (BNP) level (Acute) Non-ST elevation TN (NSTEMI) (Acute) Acute dyspnea (Acute) Acute bronchitis Headache Sinus congestion Cough Viral respiratory illness Current use of proton pump inhibitor Sleep apnea Status post transcatheter aortic valve replacement (TAVR) using bioprosthesis UTI (urinary tract infection) Cellulitis Abnormal CT scan of lung Nonobstructive atherosclerosis of coronary artery Chronic diastolic congestive heart failure Benign essential hypertension (Acute) Generalized osteoarthritis of multiple sites (Acute) Hyperlipidemia (Acute) Hypothyroidism (Acute) 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 (Acute) Osteopenia (Acute) Peripheral vascular disease (Acute) Type 2 diabetes mellitus (Acute) Vertigo Recommend PT- she declines for now but will condiser Medical History Hypoxia Bacteremia Acute respiratory distress Hypoxia Pneumonia CAP (community acquired pneumonia) Dermatitis Hypoxemia Hypercapnic respiratory failure Acute diastolic (congestive) heart failure Aortic stenosis No pertinent past medical history Surgical History History of surgical removal of ganglion cyst History of tubal ligation Family History Father Dementia Mother Lung cancer Grandmother Heart disease Other Family history non-contributory Denies family history of Ovarian cancer Prostate cancer Myocardial infarction Breast cancer Colorectal cancer Stroke Social History Smoking Status: Never smoker Second Hand Exposure: No; Do You Dip or Chew Tobacco: No; Hx Alcohol Use: No Hx Substance Use: No Preferred Language: Cymraes Communication Ability: Effective Visual Impairment: Limited Hearing Ability: Use of Hearing Aid Ecommerce Analyst Required: No Beliefs That Will Affect Care: None marital status: / Current Living Situation: Alone Current Living Situation Comment: house current occupational status: retired How many Children do You have: 6 How many Children do You have Comment: 2 boys 4 girls Feels Safe at Home: Yes Childhood Exposure to Second-Hand Smoke: Yes Diet: regular during the past year weight has: remained stable Dental Care, Regularly: Yes Physical Activity Frequency: 3-4 Times per Week Seatbelt Use: always Sunscreen Use: Yes Assistive Devices: Cane, Oxygen - Continuous, Walker and Wheelchair Physical Exam Physical Exam: Awake alert appropriate Oropharynx is clear without exudates or erythema there is no lymphadenopathy in the cervical spine Cardiac exam is regular with a slight systolic murmur Lungs have coarse breath sounds in bilateral bases no wheezes no focal air loss Abdomen NABS soft and nontender Extremities are without edema Results & Data Results & Data Vital Signs (Past 12 Hours) Vital Signs Temp Pulse Pulse Pulse Resp Resp BP 10/22/24 15:32 85 15 10/22/24 15:10 96 H 10/22/24 13:12 98 H 20 10/22/24 12:30 83 21 107/54 L 10/22/24 11:30 95 H 22 110/58 L 10/22/24 11:13 91 H 16 10/22/24 11:11 108 H 18 10/22/24 11:00 97 H 22 10/22/24 11:00 113/62 10/22/24 10:48 94 H 25 H 10/22/24 10:30 93 H 20 10/22/24 10:30 117/59 L 10/22/24 10:24 96 H 32 H 10/22/24 10:22 112/59 L 10/22/24 10:22 112/59 L 10/22/24 10:14 89 10/22/24 09:48 87 17 10/22/24 09:39 90 24 10/22/24 09:20 10/22/24 09:19 97.9 F 96 H 18 155/61 H 10/22/24 09:16 102 H 16 BP Pulse Ox Pulse Ox O2 Del Method 10/22/24 15:32 115/77 91 Room Air 10/22/24 15:10 10/22/24 13:12 119/78 97 Room Air 10/22/24 12:30 10/22/24 11:30 10/22/24 11:13 113/62 94 Room Air 10/22/24 11:11 94 Room Air 10/22/24 11:00 92 10/22/24 11:00 10/22/24 10:48 93 10/22/24 10:30 92 10/22/24 10:30 10/22/24 10:24 93 10/22/24 10:22 10/22/24 10:22 10/22/24 10:14 10/22/24 09:48 92 10/22/24 09:39 92 10/22/24 09:20 93 10/22/24 09:19 91 Room Air 10/22/24 09:16 152/84 H 93 Laboratory Results Reviewed CBC reviewed chemistry Repeat reviewed troponin which went from - and then stated 16 Code Status & VTE Plan VTE Prophylaxis Plan VTE Prophylaxis will be ordered: Yes PG Care Time/CCT Total # of Minutes Spent Total Time Spent with Patient: Total time spent is greater than 50% in coordination of care (as documented) at patient's floor/unit and/or counseling patient: Coding Level of Care Code 37173 INT INP/OBS CARE 3/75MIN Diagnoses Rhinovirus infection B34.8 Status post transcatheter aortic valve replacement (TAVR) using bioprosthesis Z95.3 Type 2 diabetes mellitus E11.9
[2024-10-22] MEDS ORDERED: ALUMINUM/MAGNESIUM SUSP 30 ML UDC PO PRN (18:08)
[2024-10-22] MEDS ORDERED: ONDANSETRON INJ 2 MG/ML 2 ML VIAL IV PRN (18:08)
[2024-10-22] MEDS ORDERED: GLUCOSE 40% GEL 15 GM TUBE PO PRN (18:08)
[2024-10-22] MEDS ORDERED: DEXTROSE 50% 50 ML SYRINGE IV PRN (18:08)
[2024-10-22] MEDS ORDERED: GLUCOSE 10 TAB/TUBE PO PRN (18:08)
[2024-10-22] MEDS ORDERED: CARBOHYDRATES FOR HYPOGLYCEMIA PO PRN (18:08)
[2024-10-22] MEDS ORDERED: GLUCAGON FOR INJ 1 MG VIAL SQ PRN (18:08)
[2024-10-22] MEDS ORDERED: ACETAMINOPHEN 325 MG TAB PO PRN (18:08)
[2024-10-22] MEDS: INSULIN ASPART PER UNIT CHARGE SC SCH (19:48)
[2024-10-22] MEDS: LOSARTAN POTASSIUM 50 MG TAB PO SCH (19:48)
[2024-10-22] MEDS: CALCIUM 600MG + VIT D 400 IU TAB PO SCH (20:58)
[2024-10-22] MEDS: ASPIRIN 81 MG ECTAB PO SCH (20:58)
[2024-10-22] MEDS: methylPREDNISolone 40 MG in SYRINGE 0 ML IV SCH (20:59)
[2024-10-22] MEDS: PRAVASTATIN SOD 40 MG TAB PO SCH (20:59)
[2024-10-22] MEDS ORDERED: methylPREDNISolone 125 MG/2 ML VIAL IV SCH (21:00)
[2024-10-22] MEDS: HEPARIN SOD 5,000 UNIT/0.5 ML VIAL SQ SCH (21:04)
[2024-10-22] MEDS: guaiFENesin 600 MG TABCR PO SCH (21:04)
[2024-10-23] MEDS: LEVOTHYROXINE SODIUM 75 MCG TABLET PO SCH (05:54)
[2024-10-23 06:46] LABS: Hematocrit (blood only) 35.7 % (37.0-47.0); Hemoglobin 11.6 g/dl (12.0-16.0); Mean Corpuscular Hemoglobin 29.7 pg (25.0-34.0); Mean Corpuscular Hgb Conc 32.5 g/dL (32.0-36.0); Mean Corpuscular Volume 91.3 fL (80.0-100.0); Mean Platelet Volume 10.6 fL (9.4-12.4); Platelet Count 338 K/uL (130-400); RDW Coefficient of Variation 14.2 % (11.5-14.5); RDW Standard Deviation 48.2 fL (36.4-46.3); Red Blood Count 3.91 M/uL (4.20-5.40)
[2024-10-23 07:04] LABS: BUN Creatinine Ratio 25.4 (10-20); Calcium 9.3 mg/dl (8.6-10.3); Creatinine Clr Calc Pharmacy 31.4 ml/min; Potassium 4.3 mmol/L (3.5-5.1)
--- NOTE | 2024-10-23 07:36 | Hospitalist Progress Note ---
Date of Service October 23, 2024 Assessment & Plan (1) Rhinovirus infection: Plan: Positive on presentation with significant bronchitis, patient with marked dyspnea on exertion Fortunately not hypoxemic There is no evidence of viral pneumonia seen on x-ray continue intravenous steroids at this time to try to reduce any inflammatory effect and inhaled bronchodilators (2) Status post transcatheter aortic valve replacement (TAVR) using bioprosthesis: Plan: History of TAVR. In the past patient has also had an MRSA bacteremia. Was given Lasix in the emergency department for consideration of heart failure preserved ejection fraction. Most recent echocardiogram from January 2023 showed preserved ejection fraction Will continue candesartan or formulary equivalent pravastatin and baby aspirin (3) Type 2 diabetes mellitus: Plan: Patient takes metformin for diabetes she is on a carbohydrate conservative diet will continue metformin have a very loose sliding scale for glucose is over 200 aic is 6 DVT prevention will be heparin subcu Patient is a full code Plan anticipate discharge 10/24 Admission and Anticipated Discharge Date Admission Date: October 22, 2024 Subjective Patient states she feels 50% better quite yet to her baseline Notices increased dyspnea still conversationally dyspneic Nonproductive cough Physical Exam Physical Exam: Lungs are much less coarse with much better breath sounds not back to baseline yet Card exam is Results & Data Results & Data Vital Signs (Past 12 Hours) Vital Signs Temp Pulse Pulse Resp BP BP Pulse Ox 10/22/24 22:37 10/22/24 22:00 98.2 F 86 16 124/73 92 10/22/24 20:42 85 10/22/24 20:00 79 22 121/60 92 O2 Del Method O2 Flow Rate 10/22/24 22:37 Room Air, CPAP 10/22/24 22:00 Room Air 10/22/24 20:42 10/22/24 20:00 Nasal Cannula 2 Laboratory Results reviewed poc glucose review cbc review chemsitry PG Care Time/CCT Total # of Minutes Spent Total Time Spent with Patient: Total time spent is greater than 50% in coordination of care (as documented) at patient's floor/unit and/or counseling patient: Coding Level of Care Code 43781 SUB INP/OBS CARE 3/50MIN Diagnoses Rhinovirus infection B34.8 Status post transcatheter aortic valve replacement (TAVR) using bioprosthesis Z95.3 Type 2 diabetes mellitus E11.9
[2024-10-23] MEDS: CYANOCOBALAMIN (B-12) 500 MCG TABLET PO SCH (08:21)
[2024-10-23] MEDS: metFORMIN HCL 500 MG TAB PO SCH (08:22)
[2024-10-23 08:43] LABS: Estimated Average Glucose 126 mg/dl
[2024-10-23] MEDS: guaiFENesin/DEXTROM SYRUP 200MG/20MG 10ML UDC PO PRN (14:08)
[2024-10-24 07:15] VITALS: BP 136/71; RESP 17; TEMP 97.7; O2SAT 97
[2024-10-24 10:19] VITALS: PULSE 83
--- NOTE | 2024-10-24 12:01 | Discharge Summary ---
Discharge Summary Date of Service October 24, 2024 Principal Dx & Hospital Course #1 = Principal Diagnosis (1) Asthmatic bronchitis: Present on admission. Now much improved. She will be discharged on oral Levaquin and a tapering dose of prednisone. (2) Rhinovirus infection: Positive on blood testing. Asthmatic bronchitis etiology appears to be bacterial however. Chest x-ray is negative (3) Status post transcatheter aortic valve replacement (TAVR) using bioprosthesis: Stable. Continue current medical management (4) Type 2 diabetes mellitus: ADA diet. Sliding scale coverage. Continue current medical management Plan Home today, October 24 Admission HPI Per Admitting Provider 83-year-old female who presents progressive shortness of breath found to have rhinovirus enterovirus in the emergency department. As an outpatient she has been on the Z-Yonatan and Augmentin with prednisone per family doctor without relief. Patient has a significant cardiac history with valve replacement and coronary artery disease. He states he has been using oxygen which she has had at home since that time (2018) She denies having fevers or chills productive cough nausea vomiting or diarrhea she has had decreased oral intake because she is felt so ill Discharge Exam General-alert and oriented x3, no fever, no chills HEENT-head atraumatic and normocephalic, pupils equal and reactive to light, e xtraocular muscles intact Neck-no lymphadenopathy or thyromegaly, trachea midline Chest-few midline rhonchi. Bilateral and expiratory wheezing has improved since admission. No dullness to percussion Cardiacregular rate and rhythm, normal S1 and S2 Abdomen-normal bowel sounds, no hepatosplenomegaly Extremities-no cyanosis, clubbing, or edema Neuro-cranial nerves II through XII intact, motor and sensory function within normal limits, strength symmetrical, no focal deficits Psych-normal affect, normal mood Discharge Plan Discharge Items Patient Disposition: Home - Self-Care Reason For Visit: ACUTE RESPIRATORY DISTRESS, RHINO VIRUS Discharge Diagnosis: Asthmatic bronchitis. Rhinovirus positivity by blood test Activity: Resume your previous activity Non-emergency contact: Primary Care Provider Call non-emergency contact if: your symptoms worsen Follow-up/Referrals: Pasha Rushing MD [Primary Care Provider] - Diet: Carb Consistent or DM2 Addtl Attending Provider Instructions: Take Levaquin once a day for the next 5 days. Take prednisone in a tapering dose fashion as directed. Prescriptions have been sent to [facility] on [facility]. Pending Studies at Discharge: No Stand-Alone Forms: My [facility], Smoking Cessation Medications and DC Order Prescriptions: New guaifenesin [Mucinex] 600 mg Tablet Extended Release 12hr 600 mg PO Q12 Qty: 6 0RF prednisone 10 mg tablet See Rx Instructions .ROUTE .COMPLEX Qty: 12 0RF Rx Instructions: 10 mg orally 3 times a day for 2 days, then 10 mg twice a day for 2 days, then 10 mg once a day for 2 days, then stop levofloxacin 500 mg tablet 500 mg PO DAILY 5 Days Qty: 5 0RF Continued candesartan 16 mg tablet See Rx Instructions .ROUTE .COMPLEX Qty: 90 3RF Dose Instruction: TAKE 1 TABLET DAILY IN THE MORNING Rx Instructions: TAKE 1 TABLET DAILY IN THE MORNING metformin 500 mg tablet 500 mg PO QAM Qty: 90 3RF Dose Instruction: TAKE 1 TABLET TWICE A DAY levothyroxine 75 mcg tablet 75 mcg PO DAILY Qty: 90 3RF (DME) Oxygen Home Liters Per Minute See Rx Instructions .ROUTE .MEDSUPPLY Qty: 1 Rx Instructions: 2 Liters prn clindamycin HCl 300 mg capsule 600 mg PO UD PRN (Reason: Prior to dental appointments) Rx Instructions: dentist appointments Caltrate 600 plus D 600 mg (1,500 mg)-800 unit Tablet,Chewable 1 tab PO BID Rx Instructions: Unable to verify OTC meds at this date/time. omega 6-hyl-sfn-fish oil [Fish Oil] 1,000 mg (120 mg-180 mg) capsule 1 cap PO AMHS Rx Instructions: Unable to verify OTC meds at this date/time. aspirin 81 mg Tablet,Delayed Release (Dr/Ec) 81 mg PO HS Rx Instructions: Unable to verify OTC meds at this date/time. mecobalamin (vitamin B12) 1,000 mcg tablet,disintegrating 1,000 mcg sublingual QAM Rx Instructions: Unable to verify OTC meds at this date/time. pravastatin 40 mg tablet 0 mg PO HS Rx Instructions: Last filled 9* x90 day supply. Original Directions: Take 40mg by mouth every morning prednisone 20 mg tablet 40 mg PO QAM Qty: 6 0RF Rx Instructions: Unable to verify med at this date/time. Discontinued azithromycin 250 mg tablet See Rx Instructions PO .COMPLEX Qty: 6 0RF Rx Instructions: take 500 mg today (day 1), then 250 mg for 4 days (days 2-5). Start Date 10/20/24 - End Date 10/24/24 Discharge Orders: Discharge Order (Routine); Ordered 10/24/24 Ordered By: Dominick Conway Admission Data Admit Date/Time: 10/22/24 15:20 Attending Provider: Dominick Conway Admit Provider: Antione Lovell Primary Care Provider: Pasha Rushing Other Providers: Antione Lovell Hospital Stay Data Consultations 10/22/24 13:13 ED Decision to Admit Stat Pending Results Patient Have Any Pending Studies at Discharge: No Discharge Instructions Given to Patient (Per Discharging Provider) Take Levaquin once a day for the next 5 days. Take prednisone in a tapering dose fashion as directed. Prescriptions have been sent to [facility] on [facility]. Total Time Total Time Spent Total Time Spent (In Minutes): 45 minutes Coding Level of Care Code 38352 INP/OBS DISCH >30 MIN Diagnoses Asthmatic bronchitis J45.909 Rhinovirus infection B34.8 Status post transcatheter aortic valve replacement (TAVR) using bioprosthesis Z95.3 Type 2 diabetes mellitus E11.9
== END 2024-10-24 12:50 | disposition home or self-care (01) | DRG 866 ==
LOC: ED 09:15 → EDINP 15:20 → SUATTDRO 15:20 → 3N 18:08
DX: B34.8 Other viral infections of unspecified site; Z79.84 Long term (current) use of oral hypoglycemic drugs; Z79.82 Long term (current) use of aspirin; J45.909 Unspecified asthma, uncomplicated; E78.5 Hyperlipidemia, unspecified; Z95.2 Presence of prosthetic heart valve; Z88.0 Allergy status to penicillin; I50.9 Heart failure, unspecified; Z79.890 Hormone replacement therapy; E03.9 Hypothyroidism, unspecified; E11.9 Type 2 diabetes mellitus without complications

== ENCOUNTER 2024-11-02 16:45 | Observation (INO) ==
[2024-11-02 17:11] LABS: Hematocrit (blood only) 41.2 % (37.0-47.0); Hemoglobin 13.7 g/dl (12.0-16.0); Mean Corpuscular Hemoglobin 29.2 pg (25.0-34.0); Mean Corpuscular Hgb Conc 33.3 g/dL (32.0-36.0); Mean Corpuscular Volume 87.8 fL (80.0-100.0); Mean Platelet Volume 9.2 fL (9.4-12.4); Platelet Count 331 K/uL (130-400); RDW Coefficient of Variation 14.4 % (11.5-14.5); Red Blood Count 4.69 M/uL (4.20-5.40); White Blood Count 23.68 K/ul (4.8-10.8)
[2024-11-02 17:31] LABS: Albumin Globulin Ratio 1.2 (0.9-2); Albumin Level 4.1 gm/dl (3.4-5.0); BUN Creatinine Ratio 23.3 (10-20); Bilirubin,Total 0.9 mg/dl (0.2-1.0); Calcium 9.4 mg/dl (8.6-10.3); Globulin 3.3 gm/dl (2.5-4.0); Potassium 4.1 mmol/L (3.5-5.1); Total Protein 7.4 gm/dl (6.0-8.3)
[2024-11-02 17:40] LABS: Basophils # (auto) 0.05 K/uL (0.00-0.20); Basophils % (auto) 0.2 %; Eosinophils # (auto) 0.05 K/uL (0.00-0.50); Eosinophils % (auto) 0.2 %; Immature Granulocytes # (auto) 0.17 K/uL (0.01-0.20); Immature Granulocytes % (auto) 0.7 %; Lymphocytes # (auto) 1.71 K/uL (1.20-3.40); Lymphocytes % (auto) 7.2 %; Monocytes % (auto) 5.5 %; Neutrophils % (auto) 86.2 %; RBC Morphology Unremarkable
--- NOTE | 2024-11-02 18:00 | Emergency Department Note ---
Impression & Plan Hypoxia, Constipation, Pneumonia, Acute urinary retention, Lower abdominal pain, Leukocytosis ED Provider Note NAME: GUERA DAMON AGE: 83 SEX: F : 1940 ARRIVES VIA: Walk-In INFORMANT: [Patient][family] ED PROVIDER(S): [Cecilio Calderon MD] CHIEF COMPLAINT: Constipation HISTORY OF PRESENT ILLNESS: The patient is an 83-year-old female who presents with 2 days of lower pelvic discomfort and what she thought might be constipation. She has been straining to make her urine flow. She has not had a bowel movement in a few days. She has noticed some nausea without vomiting. There has been no cough or cold, no shortness of breath. She does not carry a history of constipation. She tried Dulcolax and Colace without relief. The patient was recently in the hospital for a viral illness. She has been out of the hospital for just over a week. PMHx/PSHx/Social Hx: See Below PHYSICAL EXAM: GENERAL: Patient is in no acute distress. HEENT: No acute trauma, normocephalic atraumatic, mucous membranes moist, no nasal congestion. NECK: No stridor, no adenopathy, no meningismus, trachea is midline. LUNGS: Clear to auscultation bilaterally, no wheeze, no rhonchi, breath sounds equal. HEART: Without murmurs gallops or rubs, regular rate and rhythm. ABDOMEN: Soft, somewhat distended. Tender in the mid pelvis, no obvious bladder distention. Bowel sounds positive. EXTREMITIES: No cyanosis, full range of motion of all the joints without pain or difficulty. NEUROLOGIC: Oriented x 3, no acute motor or sensory deficits, no focal weakness. SKIN: No jaundice, no diaphoresis. DIFFERENTIAL DIAGNOSIS: Constipation, urinary retention, UTI, bowel obstruction, diverticulitis, among others. EMERGENCY DEPARTMENT PROCEDURES: Bladder scan showed about 650 cc, fairly significant retention. MEDICAL DECISION MAKING: There is a significant leukocytosis at 23,000, this could be consistent with her pain and/or infection. There was a normal hemoglobin and platelet count. Sodium was low at 130. No renal failure. No concerning liver enzyme elevation. Urinalysis does not show infection. Bladder scan did show urinary retention. A Senior catheter was placed. A CT of the abdomen pelvis was performed. She did not have a bowel obstruction, she was constipated. Bilateral lower lobe pneumonia was seen. A KUB was done, the patient did have some dilated small bowel, no mayda findings of obstruction. Constipation was seen. The patient felt improved after the Senior catheter was placed. She was ordered for IV ceftriaxone for the presumed pneumonia noticed on CT imaging. She was ordered for a milk and molasses enema. Of note, the patient became hypoxic in the ED, she required 2 L of nasal cannula supplementation. The patient was found to be hypoxic. She has pneumonia, she was retaining urine and is constipated. Given all these findings, given her age, I do think hospitalization is indicated. I spoke with the patient, I spoke with her family. I did speak with case management, the on-call hospitalist was consulted. Prior/Outside records/notes reviewed: Discharge summary note from 10/24/2024 discussing her asthmatic bronchitis and rhinovirus infection, her hospital course and plan outpatient. Imaging/x-ray results per my interpretation: KUB shows some stool in the rectal vault. There are dilated small bowel loops in the right upper quadrant consistent. Chronic Medical/Social conditions affecting care: Advanced age, recent hospitalization Care/Management discussed with: Case management, the on-call hospitalist. Level of care consideration(s): After review of the information above and other included data: --I believe the patient requires escalation of care to admission DISPOSITION: Admission Past Med/Surg History Problem List Leukocytosis (Acute) Lower abdominal pain (Acute) Acute urinary retention (Acute) Pneumonia (Acute) Constipation (Acute) Hypoxia (Acute) Asthmatic bronchitis Enterovirus infection (Acute) Rhinovirus infection (Acute) Elevated brain natriuretic peptide (BNP) level (Acute) Non-ST elevation WA (NSTEMI) (Acute) Acute dyspnea (Acute) Acute bronchitis Headache Sinus congestion Cough Viral respiratory illness Current use of proton pump inhibitor Sleep apnea Status post transcatheter aortic valve replacement (TAVR) using bioprosthesis UTI (urinary tract infection) Cellulitis Abnormal CT scan of lung Nonobstructive atherosclerosis of coronary artery Chronic diastolic congestive heart failure Benign essential hypertension (Acute) Generalized osteoarthritis of multiple sites (Acute) Hyperlipidemia (Acute) Hypothyroidism (Acute) 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 (Acute) Osteopenia (Acute) Peripheral vascular disease (Acute) Type 2 diabetes mellitus (Acute) Vertigo Recommend PT- she declines for now but will condiser Medical History Hypoxia Bacteremia Acute respiratory distress Hypoxia Pneumonia CAP (community acquired pneumonia) Dermatitis Hypoxemia Hypercapnic respiratory failure Acute diastolic (congestive) heart failure Aortic stenosis No pertinent past medical history Surgical History History of surgical removal of ganglion cyst History of tubal ligation Family History Father Dementia Mother Lung cancer Grandmother Heart disease Other Family history non-contributory Denies family history of Ovarian cancer Prostate cancer Myocardial infarction Breast cancer Colorectal cancer Stroke Social History Smoking Status: Never smoker Second Hand Exposure: Yes; Do You Dip or Chew Tobacco: No; Hx Alcohol Use: No Hx Substance Use: No Preferred Language: Indonesian Communication Ability: Effective Visual Impairment: Limited Hearing Ability: Use of Hearing Aid Supervisor [employer] Required: No Beliefs That Will Affect Care: None marital status: / Current Living Situation: Alone Current Living Situation Comment: from own home current occupational status: retired How many Children do You have: 6 How many Children do You have Comment: 2 boys 4 girls Feels Safe at Home: Yes Childhood Exposure to Second-Hand Smoke: Yes Diet: regular during the past year weight has: remained stable Dental Care, Regularly: Yes Physical Activity Frequency: 3-4 Times per Week Seatbelt Use: always Sunscreen Use: Yes Assistive Devices: Cane, CPAP, Oxygen - Continuous, Walker and Wheelchair Allergies Allergies Allergy/AdvReac Type Severity Reaction Status Date / Time adhesive Allergy Mild SKIN Verified 10/22/24 08:04 IRRITATION KINJAL Inhibitors Allergy Unknown LISTED ON Verified 10/22/24 08:04 MNPG Penicillins Allergy Unknown CAN'T Verified 10/22/24 08:04 REMEMBER Home Meds Home Medications Medication Instructions Recorded Confirmed calcium 600 mg (as carbonate)-vit 1 tab PO BID 12/22/18 11/02/24 D3 20 mcg (800 unit) chewable tablet (Caltrate plus D) Oxygen Home #1 ea 01/20/20 10/22/24 omega 3-wjr-hpp-fish oil 1,000 mg 1 cap PO AMHS 08/09/20 11/02/24 (120 mg-180 mg) capsule (Fish Oil) aspirin 81 mg tablet,delayed 81 mg PO HS 02/11/23 11/02/24 release mecobalamin (vitamin B12) 1,000 1,000 mcg sublingual QAM 02/11/23 11/02/24 mcg disintegrating tablet,sublingual clindamycin HCl 300 mg capsule 600 mg PO UD PRN Prior to dental 12/09/23 11/02/24 appointments pravastatin 40 mg tablet 40 mg PO HS 10/22/24 11/02/24 Previous Rx's Medication Instructions Recorded candesartan 16 mg tablet See Rx Instructions .Route 10/01/24 .COMPLEX #90 tabs metformin 500 mg tablet 500 mg PO QAM #90 tabs 10/09/24 levothyroxine 75 mcg tablet 75 mcg PO DAILY #90 tabs 10/14/24 guaifenesin 600 mg tablet, 600 mg PO Q12 #6 tabs 10/23/24 extended release 12 hr (Mucinex) Results & Data (ED) Vital Signs Vital Signs - 24 hr 11/02/24 16:48 11/02/24 18:57 11/02/24 19:07 Temperature 36.5 C Temperature Source Temporal Artery Scan Pulse Rate 108 H Pulse Rate [Right Finger] 82 Pulse Rhythm Regular Pulse Strength Normal Respiratory Rate 20 20 Respiratory Effort / Characteristics Non-Labored Spontaneous Non-Labored Spontaneous Respiratory Depth Normal Normal Respiratory Pattern Regular Blood Pressure 170/74 H Blood Pressure [Right Arm] 120/63 Blood Pressure Mean 106 Blood Pressure Mean [Right Arm] 82 Blood Pressure Position Sitting Pulse Oximetry 95 95 87 L Oxygen Delivery Method Room Air Room Air Room Air Oxygen Flow Rate 0 Sepsis Recent Fever Within 48 Hours No Sepsis New/Unexplained Change in Mental Status N/A Sepsis Action Taken by Nursing No Action Required Oxygen Flow Rate - Titration 2 Pulse Oximetry Post Tiitration 93 11/02/24 20:00 11/02/24 20:24 Temperature Temperature Source Pulse Rate 102 H Pulse Rate [Right Finger] 81 Pulse Rhythm Pulse Strength Respiratory Rate 20 Respiratory Effort / Characteristics Non-Labored Spontaneous Respiratory Depth Normal Respiratory Pattern Regular Blood Pressure Blood Pressure [Right Arm] 136/81 Blood Pressure Mean Blood Pressure Mean [Right Arm] 99 Blood Pressure Position Pulse Oximetry 94 Oxygen Delivery Method Nasal Cannula Oxygen Flow Rate 2 Sepsis Recent Fever Within 48 Hours Sepsis New/Unexplained Change in Mental Status Sepsis Action Taken by Nursing Oxygen Flow Rate - Titration Pulse Oximetry Post Tiitration Home Medications Current Medication List: was personally reviewed by me Laboratory Data Attestation: I reviewed the patient's lab results. 11/02/24 17:00 11/02/24 17:00 Lab Results 11/02/24 11/02/24 Range/Units 17:00 Unknown WBC 23.68 H (4.8-10.8) K/ul RBC 4.69 (4.20-5.40) M/uL Hgb 13.7 (12.0-16.0) g/dl Hct 41.2 (37.0-47.0) % MCV 87.8 (80.0-100.0) fL MCH 29.2 (25.0-34.0) pg MCHC 33.3 (32.0-36.0) g/dL RDW Std Deviation 46.0 (36.4-46.3) fL RDW Coeff of Julieta 14.4 (11.5-14.5) % Plt Count 331 (130-400) K/uL MPV 9.2 L (9.4-12.4) fL Immature Gran % (Auto) 0.7 % Neut % (Auto) 86.2 % Lymph % (Auto) 7.2 % Green % (Auto) 5.5 % Eos % (Auto) 0.2 % Baso % (Auto) 0.2 % Neut # (Auto) 20.40 H (1.40-6.50) K/uL Lymph # (Auto) 1.71 (1.20-3.40) K/uL Green # (Auto) 1.30 H (0.11-0.59) K/uL Eos # (Auto) 0.05 (0.00-0.50) K/uL Baso # (Auto) 0.05 (0.00-0.20) K/uL Immature Gran # (Auto) 0.17 (0.01-0.20) K/uL RBC Morphology Unremarkable Sodium 130 L (136-145) mmol/L Potassium 4.1 (3.5-5.1) mmol/L Chloride 93 L (98-107) mmol/L Carbon Dioxide 29 (21-32) mmol/L Anion Gap 8 (3-11) BUN 24 H (6-23) mg/dl Creatinine 1.03 (0.6-1.2) mg/dl Est Cr Clr Drug Dosing 34.0 ml/min eGFR 53.95 BUN/Creatinine Ratio 23.3 H (10-20) Glucose 143 H (70-99(Fasting)) mg/dl Calcium 9.4 (8.6-10.3) mg/dl Total Bilirubin 0.9 (0.2-1.0) mg/dl AST 25 (13-39) U/L ALT 22 (7-52) U/L Alkaline Phosphatase 67 (34-104) U/L Total Protein 7.4 (6.0-8.3) gm/dl Albumin 4.1 (3.4-5.0) gm/dl Globulin 3.3 (2.5-4.0) gm/dl Albumin/Globulin Ratio 1.2 (0.9-2) Urine Color Yellow Urine Appearance Cloudy A (Clear) Urine pH 7.0 (4.5-7.5) Ur Specific Orange 1.016 (1.000-1.030) Urine Protein Negative (Negative) Urine Glucose (UA) Negative (Negative) Urine Ketones Negative (Negative) Urine Blood Negative (Negative) Urine Nitrite Negative (Negative) Urine Bilirubin Negative (Negative) Urine Urobilinogen Negative (Negative) Ur Leukocyte Esterase Negative (Negative) Urine WBC (Auto) 0-5 (0-5) /hpf Urine RBC (Auto) 0-2 (0-2) /hpf U Hyaline Cast (Auto) 0-2 (0-2) /lpf U Epithel Cells (Auto) 0-2 (0-2) /hpf Urine Bacteria (Auto) None Seen (None Seen) Administered Medications Discontinued Medications Ceftriaxone Sodium (Rocephin) 2,000 mg in 50 mls @ 100 mls/hr IV NOW STA Stop: 11/02/24 20:05 Last Admin: 11/02/24 20:12 Dose: 100 mls/hr Documented By: MARILU Ioversol (Optiray 320 100ml) 93 ml IV ONCE ONE Stop: 11/02/24 18:33 Last Admin: 11/02/24 18:33 Dose: 93 ml Documented By: DIOGO Imaging Data Radiologist's Impression: KUB X-Ray 11/02/24 16:51 INDICATION: Constipation. TECHNIQUE: 3 views of the abdomen. COMPARISON: No relevant priors. FINDINGS/IMPRESSION: Air and stool seen in the colon. Moderate retained rectal stool. Nonspecific mildly dilated colonic loops and small bowel loops in the right upper quadrant. No free air. No pathologic calcifications. Follow-up as clinically relevant. Electronically signed by Ivan Palma 11-02-2024 6:19 PM Abdomen/Pelvis CT 11/02/24 17:49 Clinical History: Abdominal pain and bloating Technique: Axial computed tomography images were obtained of the abdomen and pelvis after the administration of intravenous contrast. Findings: The liver is overall of normal size, attenuation, and contour with no sign of cirrhosis or significant fatty infiltration. No liver mass lesion is seen. The portal vein is patent. A gallstone is present. The gallbladder is mildly distended. No clear gallbladder wall thickening is seen. No bile duct dilatation is noted. The spleen is of normal size. No focal splenic lesion is evident. The pancreas appears normal with no sign of acute or chronic pancreatitis and no mass lesion noted. The pancreatic duct is of normal caliber. The adrenal glands appear unremarkable. No definite renal or proximal ureteral calculi are seen on this contrast-enhanced study. There is no hydronephrosis or perinephric stranding. No renal mass lesion is identified. The aorta is of normal caliber. No abdominal adenopathy is seen. There is a small hiatal hernia. There is no sign of small bowel obstruction. There is diverticulosis without definite diverticulitis. There is mild colonic dilatation that may be due to ileus. There is constipation with prominent stool within the rectum. No free intraperitoneal fluid or air is identified. No distal ureteral or bladder calculi are seen. The bladder is decompressed, containing a Senior catheter. The iliac arteries are of normal caliber. No pelvic adenopathy is noted. There are multifocal irregular alveolar opacities in both lower lobes, concerning for pneumonia. 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 There is grade 1 anterolisthesis at L4-5. No fracture is identified. No focal osseous lesion is seen Impression: 1. Suspected bilateral lower lobe pneumonia 2. Cholelithiasis without definite acute cholecystitis 3. Constipation and possible mild colonic ileus 4. Diverticulosis without evidence of diverticulitis 5. Small hiatal hernia Electronically signed by Davonte Andrade 11-02-2024 7:33 PM Discharge Plan Visit Data Chief Complaint: Constipation Stated Complaint: BLOATED ABD, CONSTIPATION, UNABLE TO VOID ED Provider: Cecilio Calderon Discharge Problem: Hypoxia, Constipation, Pneumonia, Acute urinary retention, Lower abdominal pain, Leukocytosis Patient Disposition: Admitted As Inpatient Condition: Fair Forms Stand Alone Forms: [facility] Prescriptions Prescriptions: No Action candesartan 16 mg tablet See Rx Instructions .ROUTE .COMPLEX Qty: 90 3RF Dose Instruction: TAKE 1 TABLET DAILY IN THE MORNING Rx Instructions: TAKE 1 TABLET DAILY IN THE MORNING metformin 500 mg tablet 500 mg PO QAM Qty: 90 3RF Dose Instruction: TAKE 1 TABLET TWICE A DAY levothyroxine 75 mcg tablet 75 mcg PO DAILY Qty: 90 3RF (DME) Oxygen Home Liters Per Minute See Rx Instructions .ROUTE .MEDSUPPLY Qty: 1 Rx Instructions: 2 Liters prn clindamycin HCl 300 mg capsule 600 mg PO UD PRN (Reason: Prior to dental appointments) Rx Instructions: dentist appointments Caltrate 600 plus D 600 mg (1,500 mg)-800 unit Tablet,Chewable 1 tab PO BID Rx Instructions: Unable to verify OTC meds at this date/time. omega 5-iia-ojs-fish oil [Fish Oil] 1,000 mg (120 mg-180 mg) capsule 1 cap PO AMHS Rx Instructions: Unable to verify OTC meds at this date/time. aspirin 81 mg Tablet,Delayed Release (Dr/Ec) 81 mg PO HS Rx Instructions: Unable to verify OTC meds at this date/time. mecobalamin (vitamin B12) 1,000 mcg tablet,disintegrating 1,000 mcg sublingual QAM Rx Instructions: Unable to verify OTC meds at this date/time. pravastatin 40 mg tablet 40 mg PO HS guaifenesin [Mucinex] 600 mg Tablet Extended Release 12hr 600 mg PO Q12 Qty: 6 0RF Referrals Referrals: Pasha Rushing MD [Primary Care Provider] - Discharge Problem: Constipation Qualifiers: Constipation type: unspecified constipation type Qualified Code(s): K59.00 - Constipation, unspecified Pneumonia Qualifiers: Pneumonia type: due to unspecified organism Laterality: bilateral Lung location: lower lobe of lung Qualified Code(s): J18.9 - Pneumonia, unspecified organism Leukocytosis Qualifiers: Leukocytosis type: unspecified Qualified Code(s): D72.829 - Elevated white blood cell count, unspecified
--- NOTE | 2024-11-02 18:22 | XRay Report ---
INDICATION: Constipation. TECHNIQUE: 3 views of the abdomen. COMPARISON: No relevant priors. FINDINGS/IMPRESSION: Air and stool seen in the colon. Moderate retained rectal stool. Nonspecific mildly dilated colonic loops and small bowel loops in the right upper quadrant. No free air. No pathologic calcifications. Follow-up as clinically relevant. Electronically signed by Ivan Palma 11-02-2024 6:19 PM
[2024-11-02 18:28] LABS: Appearance Urine Cloudy (Clear); Bacteria Urine Automated None Seen (None Seen); Bilirubin Urine Negative (Negative); Blood Urine Negative (Negative); Cast Urine Automated 0-2 /lpf (0-2); Color Urine Yellow; Epithelial Cell Urine Auto 0-2 /hpf (0-2); Glucose Urine UA Negative (Negative); Ketones Urine Negative (Negative); Leukocyte Esterase Urine Negative (Negative); Nitrite Urine Negative (Negative); Protein Urine Negative (Negative); RBC Urine Automated 0-2 /hpf (0-2); Specific Gravity Urine 1.016 (1.000-1.030); Urobilinogen Urine Negative (Negative); WBC Urine Automated 0-5 /hpf (0-5)
[2024-11-02] MEDS: OPTIRAY 320 100ml IV ONE (18:33)
--- NOTE | 2024-11-02 19:33 | CT Scan Report ---
Clinical History: Abdominal pain and bloating Technique: Axial computed tomography images were obtained of the abdomen and pelvis after the administration of intravenous contrast. Findings: The liver is overall of normal size, attenuation, and contour with no sign of cirrhosis or significant fatty infiltration. No liver mass lesion is seen. The portal vein is patent. A gallstone is present. The gallbladder is mildly distended. No clear gallbladder wall thickening is seen. No bile duct dilatation is noted. The spleen is of normal size. No focal splenic lesion is evident. The pancreas appears normal with no sign of acute or chronic pancreatitis and no mass lesion noted. The pancreatic duct is of normal caliber. The adrenal glands appear unremarkable. No definite renal or proximal ureteral calculi are seen on this contrast-enhanced study. There is no hydronephrosis or perinephric stranding. No renal mass lesion is identified. The aorta is of normal caliber. No abdominal adenopathy is seen. There is a small hiatal hernia. There is no sign of small bowel obstruction. There is diverticulosis without definite diverticulitis. There is mild colonic dilatation that may be due to ileus. There is constipation with prominent stool within the rectum. No free intraperitoneal fluid or air is identified. No distal ureteral or bladder calculi are seen. The bladder is decompressed, containing a Senior catheter. The iliac arteries are of normal caliber. No pelvic adenopathy is noted. There are multifocal irregular alveolar opacities in both lower lobes, concerning for pneumonia. 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 There is grade 1 anterolisthesis at L4-5. No fracture is identified. No focal osseous lesion is seen Impression: 1. Suspected bilateral lower lobe pneumonia 2. Cholelithiasis without definite acute cholecystitis 3. Constipation and possible mild colonic ileus 4. Diverticulosis without evidence of diverticulitis 5. Small hiatal hernia Electronically signed by Davonte Andrade 11-02-2024 7:33 PM
[2024-11-02] MEDS: cefTRIAXone SODIUM 2,000 MG/50 ML BAG IV STA (20:12)
--- NOTE | 2024-11-02 21:17 | History & Physical Report ---
Date of Service November 02, 2024 Assessment & Plan (1) Constipation: Plan: 83yo female presenting with constipation, acute urinary retention. Abdomen is soft, non-distended and non-tender, normoactive bowel sounds present. CT of the abdomen as above with constipation with possible mild colonic ileus. Patient reports she is passing gas without difficulty. Soap suds enema to be administered in the ER. -Observation to medical -Check Mg and PO4 x 1 and replete as needed -Gentle hydration with NSS at 100mL/hr x 1L -Dulcolax 10mg OR daily -Senna 8.6mg PO daily -Miralax PRN (2) Acute urinary retention: Plan: Most likely secondary to constipation. Senior catheter in place with clear, yellow urine in the bag. UA with no evidence of infection. Renal function and electrolytes are WNL. -Maintain Senior catheter for now -Monitor I/Os -Bowel management as above (3) Pneumonia: Plan: Noted at lung bases bilaterally. Patient with brief episode of hypoxia in the ER, now on supplemental O2 2L NC improved. Per notes, she had been on Azithromycin, Augmentin and Prednisone prior to her most recent hospitalization and was discharged home on Levaquin and a steroid taper. She does not endorse fever, chest pain, SOB or cough. Uncertain if she truly has PNA. Does have a marked leukocytosis WBC=23.68 with neutrophil predominance. -Follow cultures -Check MRSA nares -Continue Ceftriaxone 1gm IV daily -Doxycycline 100mg PO BID -Continue Guaifenesin -Tylenol PRN -Zofran PRN (4) Sleep apnea: Plan: Chronic. Patient compliant with home CPAP -Continue CPAP qHS (5) Benign essential hypertension: Plan: Chronic. BP currently acceptable at 136/81. Patient on Candesartan 16mg po daily -Losartan 50mg po daily during admission -Resume Candesartan on discharge (6) Type 2 diabetes mellitus: Plan: Chronic. Overall well controlled on metformin. Last IcbH9A=0 on 10/23/24 -Hold Metformin -ISS with goal blood sugar 110 - 160 Plan Chronic Medical Conditions: CAD - non-obstructive, no chest pain -Continue ASA 81mg po qHS -Continue Pravastatin 40mg po qHS Hypothyroidism - chronic, stable. Last TSH on 08/17/24 = 2.304 -Continue Synthroid 75mcg po daily F/E/N - NSS at 100mL/hr x 1L, electrolytes WNL, CC/AHA diet as tolerated Ppx - Low risk for DVT, encourage ambulation Code - Full Dispo - Observation to medical History of Present Illness Chief Complaint: constipation, difficulty urinating Primary Care Provider: Pasha Rushing MD Shakira Delgado is a pleasant 83yo female presenting with abdominal discomfort, constipation and difficulty urinating. Patient with history of non-obstructive CAD, HTN, HLP, ASHLEY on CPAP and s/p TAVR with bioprosthetic valve. She was recently admitted to [facility] from 10/22/24 - 10/24/24 with acute respiratory distress and asthmatic bronchitis secondary to Rhinovirus infection. She was treated with IV steroids and inhaled bronchodilators and ultimately discharged in stable condition on 10/24/24 with a prescription for Levaquin and a steroid taper. She reports completing these medications without difficulty. Patient presents today with several days of constipation - she does not recall when her last BM was - at baseline she only has a BM every other day. Today she developed difficulty urinating and needed to stand up and push on her bladder to pass urine. She has some mild lower abdominal discomfort and nausea but no vomiting. She reports she is passing flatus without difficulty. Also with poor appetite and decreased oral intake and some generalized weakness. No report of fever, chills, rigors, sweats, dysuria, hematuria. No chest pain, palpitations or SOB. No pleuritic discomfort. She reports severe cough when she had the Rhinovirus but this has been improving and is non-productive. In the ER patient afebrile, sinus tachycardia with HR of 102. She did become briefly hypoxic with saturation of 87% and was placed on 2L NC with improvement. She does not use O2 at home. She had a bladder scan performed which showed 650mL of retained urine - Senior was placed without difficulty. ER Course: Ceftriaxone 2gm IV Allergies Allergy/AdvReac Type Severity Reaction Status Date / Time adhesive Allergy Mild SKIN Verified 10/22/24 08:04 IRRITATION KINJAL Inhibitors Allergy Unknown LISTED ON Verified 10/22/24 08:04 MNPG Penicillins Allergy Unknown CAN'T Verified 10/22/24 08:04 REMEMBER Home Medications Medication Instructions Recorded Confirmed Type calcium 600 mg (as carbonate)-vit 1 tab PO BID 12/22/18 11/02/24 History D3 20 mcg (800 unit) chewable tablet (Caltrate plus D) Oxygen Home #1 ea 01/20/20 10/22/24 History omega 2-tmv-ccw-fish oil 1,000 mg 1 cap PO AMHS 08/09/20 11/02/24 History (120 mg-180 mg) capsule (Fish Oil) aspirin 81 mg tablet,delayed 81 mg PO HS 02/11/23 11/02/24 History release mecobalamin (vitamin B12) 1,000 1,000 mcg sublingual QAM 02/11/23 11/02/24 History mcg disintegrating tablet,sublingual clindamycin HCl 300 mg capsule 600 mg PO UD PRN Prior to dental 12/09/23 11/02/24 History appointments candesartan 16 mg tablet See Rx Instructions .Route 10/01/24 11/02/24 Rx .COMPLEX #90 tabs metformin 500 mg tablet 500 mg PO QAM #90 tabs 10/09/24 11/02/24 Rx levothyroxine 75 mcg tablet 75 mcg PO DAILY #90 tabs 10/14/24 11/02/24 Rx pravastatin 40 mg tablet 40 mg PO HS 10/22/24 11/02/24 History guaifenesin 600 mg tablet, 600 mg PO Q12 #6 tabs 10/23/24 11/02/24 Rx extended release 12 hr (Mucinex) Past Med/Surg History Problem List Leukocytosis (Acute) Lower abdominal pain (Acute) Acute urinary retention (Acute) Pneumonia (Acute) Constipation (Acute) Hypoxia (Acute) Asthmatic bronchitis Enterovirus infection (Acute) Rhinovirus infection (Acute) Elevated brain natriuretic peptide (BNP) level (Acute) Non-ST elevation [place] (NSTEMI) (Acute) Acute dyspnea (Acute) Acute bronchitis Headache Sinus congestion Cough Viral respiratory illness Current use of proton pump inhibitor Sleep apnea Status post transcatheter aortic valve replacement (TAVR) using bioprosthesis UTI (urinary tract infection) Cellulitis Abnormal CT scan of lung Nonobstructive atherosclerosis of coronary artery Chronic diastolic congestive heart failure Benign essential hypertension (Acute) Generalized osteoarthritis of multiple sites (Acute) Hyperlipidemia (Acute) Hypothyroidism (Acute) 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 (Acute) Osteopenia (Acute) Peripheral vascular disease (Acute) Type 2 diabetes mellitus (Acute) Vertigo Recommend PT- she declines for now but will condiser Medical History Hypoxia Bacteremia Acute respiratory distress Hypoxia Pneumonia CAP (community acquired pneumonia) Dermatitis Hypoxemia Hypercapnic respiratory failure Acute diastolic (congestive) heart failure Aortic stenosis No pertinent past medical history Surgical History History of surgical removal of ganglion cyst Left wrist History of tubal ligation Family History Father Dementia Mother Lung cancer Grandmother Heart disease Other Family history non-contributory Denies family history of Ovarian cancer Prostate cancer Myocardial infarction Breast cancer Colorectal cancer Stroke Social History Smoking Status: Never smoker Second Hand Exposure: Yes; Do You Dip or Chew Tobacco: No; Hx Alcohol Use: No Hx Substance Use: No Preferred Language: Italian Communication Ability: Effective Visual Impairment: Limited Hearing Ability: Use of Hearing Aid Melt House Drag Operator Required: No Beliefs That Will Affect Care: None marital status: / Current Living Situation: Alone Current Living Situation Comment: from own home current occupational status: retired How many Children do You have: 6 How many Children do You have Comment: 2 boys 4 girls Feels Safe at Home: Yes Childhood Exposure to Second-Hand Smoke: Yes Diet: regular during the past year weight has: remained stable Dental Care, Regularly: Yes Physical Activity Frequency: 3-4 Times per Week Seatbelt Use: always Sunscreen Use: Yes Assistive Devices: Cane, CPAP, Oxygen - Continuous, Walker and Wheelchair Review of Systems Review of Systems: All systems reviewed & are unremarkable except as noted in HPI & below Physical Exam Physical Exam: General: patient resting comfortably, NAD, non-toxic in appearance, AA&O x 4 Skin: warm, dry, intact, no rashes or lesions HEENT: NC/AT, PERRL, EOMI, anicteric sclera, conjunctiva without injection, external ear normal to inspection and nontender, nares patent, moist mucus membranes, dentition intact, no oropharyngeal lesions, neck supple, trachea midline, no LAD, no thyromegaly, no JVD Heart: +S1/S2, regular, tachycardic with occasional ectopy, 3/6 CAREN at right 2nd ICS, no rubs or gallops Lungs: equal air entry bilaterally, no rhonchi or wheezes, crackles in right base Abd: +BS, soft, NT/ND, no masses/organomegaly/ascites Senior in place with 650mL clear, yellow urine Ext: warm, 2+ pulses in UE/LE bilaterally, no clubbing/cyanosis or edema Neuro: nonfocal, patient AA&O x 4, speech intact, no facial droop, moving all extremities on command with equal strength 5/5 Results & Data Results & Data Vital Signs (Past 12 Hours) Vital Signs Temp Pulse Pulse Resp BP BP Pulse Ox 11/02/24 20:24 102 H 11/02/24 20:00 81 20 136/81 94 11/02/24 19:07 87 L 11/02/24 18:57 82 20 120/63 95 11/02/24 16:48 36.5 C 108 H 20 170/74 H 95 O2 Del Method O2 Flow Rate 11/02/24 20:24 11/02/24 20:00 Nasal Cannula 2 11/02/24 19:07 Room Air 0 11/02/24 18:57 Room Air 11/02/24 16:48 Room Air Laboratory Results Laboratory Results WBC 23.68 K/ul (4.8-10.8) H 11/02/24 17:00 RBC 4.69 M/uL (4.20-5.40) 11/02/24 17:00 Hgb 13.7 g/dl (12.0-16.0) 11/02/24 17:00 Hct 41.2 % (37.0-47.0) 11/02/24 17:00 MCV 87.8 fL (80.0-100.0) 11/02/24 17:00 MCH 29.2 pg (25.0-34.0) 11/02/24 17:00 MCHC 33.3 g/dL (32.0-36.0) 11/02/24 17:00 RDW Std Deviation 46.0 fL (36.4-46.3) 11/02/24 17:00 RDW Coeff of [place] 14.4 % (11.5-14.5) 11/02/24 17:00 Plt Count 331 K/uL (130-400) 11/02/24 17:00 MPV 9.2 fL (9.4-12.4) L 11/02/24 17:00 Immature Gran % (Auto) 0.7 % 11/02/24 17:00 Neut % (Auto) 86.2 % 11/02/24 17:00 Lymph % (Auto) 7.2 % 11/02/24 17:00 [place] % (Auto) 5.5 % 11/02/24 17:00 Eos % (Auto) 0.2 % 11/02/24 17:00 Baso % (Auto) 0.2 % 11/02/24 17:00 Neut # (Auto) 20.40 K/uL (1.40-6.50) H 11/02/24 17:00 Lymph # (Auto) 1.71 K/uL (1.20-3.40) 11/02/24 17:00 [place] # (Auto) 1.30 K/uL (0.11-0.59) H 11/02/24 17:00 Eos # (Auto) 0.05 K/uL (0.00-0.50) 11/02/24 17:00 Baso # (Auto) 0.05 K/uL (0.00-0.20) 11/02/24 17:00 Immature Gran # (Auto) 0.17 K/uL (0.01-0.20) 11/02/24 17:00 RBC Morphology Unremarkable 11/02/24 17:00 Sodium 130 mmol/L (136-145) L 11/02/24 17:00 Potassium 4.1 mmol/L (3.5-5.1) 11/02/24 17:00 Chloride 93 mmol/L (98-107) L 11/02/24 17:00 Carbon Dioxide 29 mmol/L (21-32) 11/02/24 17:00 Anion Gap 8 (3-11) 11/02/24 17:00 BUN 24 mg/dl (6-23) H 11/02/24 17:00 Creatinine 1.03 mg/dl (0.6-1.2) 11/02/24 17:00 Est Cr Clr Drug Dosing 34.0 ml/min 11/02/24 17:00 eGFR 53.95 11/02/24 17:00 BUN/Creatinine Ratio 23.3 (10-20) H 11/02/24 17:00 Glucose 143 mg/dl (70-99(Fasting)) H 11/02/24 17:00 Calcium 9.4 mg/dl (8.6-10.3) 11/02/24 17:00 Total Bilirubin 0.9 mg/dl (0.2-1.0) 11/02/24 17:00 AST 25 U/L (13-39) 11/02/24 17:00 ALT 22 U/L (7-52) 11/02/24 17:00 Alkaline Phosphatase 67 U/L (34-104) 11/02/24 17:00 Total Protein 7.4 gm/dl (6.0-8.3) 11/02/24 17:00 Albumin 4.1 gm/dl (3.4-5.0) 11/02/24 17:00 Globulin 3.3 gm/dl (2.5-4.0) 11/02/24 17:00 Albumin/Globulin Ratio 1.2 (0.9-2) 11/02/24 17:00 Urine Color Yellow 11/02/24 Unknown Urine Appearance Cloudy (Clear) A 11/02/24 Unknown Urine pH 7.0 (4.5-7.5) 11/02/24 Unknown Ur Specific [place] 1.016 (1.000-1.030) 11/02/24 Unknown Urine Protein Negative (Negative) 11/02/24 Unknown Urine Glucose (UA) Negative (Negative) 11/02/24 Unknown Urine Ketones Negative (Negative) 11/02/24 Unknown Urine Blood Negative (Negative) 11/02/24 Unknown Urine Nitrite Negative (Negative) 11/02/24 Unknown Urine Bilirubin Negative (Negative) 11/02/24 Unknown Urine Urobilinogen Negative (Negative) 11/02/24 Unknown Ur Leukocyte Esterase Negative (Negative) 11/02/24 Unknown Urine WBC (Auto) 0-5 /hpf (0-5) 11/02/24 Unknown Urine RBC (Auto) 0-2 /hpf (0-2) 11/02/24 Unknown U Hyaline Cast (Auto) 0-2 /lpf (0-2) 11/02/24 Unknown U Epithel Cells (Auto) 0-2 /hpf (0-2) 11/02/24 Unknown Urine Bacteria (Auto) None Seen (None Seen) 11/02/24 Unknown Impressions KUB X-Ray 11/02/24 16:51 INDICATION: Constipation. TECHNIQUE: 3 views of the abdomen. COMPARISON: No relevant priors. FINDINGS/IMPRESSION: Air and stool seen in the colon. Moderate retained rectal stool. Nonspecific mildly dilated colonic loops and small bowel loops in the right upper quadrant. No free air. No pathologic calcifications. Follow-up as clinically relevant. Electronically signed by Ivan Palma 11-02-2024 6:19 PM Abdomen/Pelvis CT 11/02/24 17:49 Clinical History: Abdominal pain and bloating Technique: Axial computed tomography images were obtained of the abdomen and pelvis after the administration of intravenous contrast. Findings: The liver is overall of normal size, attenuation, and contour with no sign of cirrhosis or significant fatty infiltration. No liver mass lesion is seen. The portal vein is patent. A gallstone is present. The gallbladder is mildly distended. No clear gallbladder wall thickening is seen. No bile duct dilatation is noted. The spleen is of normal size. No focal splenic lesion is evident. The pancreas appears normal with no sign of acute or chronic pancreatitis and no mass lesion noted. The pancreatic duct is of normal caliber. The adrenal glands appear unremarkable. No definite renal or proximal ureteral calculi are seen on this contrast-enhanced study. There is no hydronephrosis or perinephric stranding. No renal mass lesion is identified. The aorta is of normal caliber. No abdominal adenopathy is seen. There is a small hiatal hernia. There is no sign of small bowel obstruction. There is diverticulosis without definite diverticulitis. There is mild colonic dilatation that may be due to ileus. There is constipation with prominent stool within the rectum. No free intraperitoneal fluid or air is identified. No distal ureteral or bladder calculi are seen. The bladder is decompressed, containing a Senior catheter. The iliac arteries are of normal caliber. No pelvic adenopathy is noted. There are multifocal irregular alveolar opacities in both lower lobes, concerning for pneumonia. 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 There is grade 1 anterolisthesis at L4-5. No fracture is identified. No focal osseous lesion is seen Impression: 1. Suspected bilateral lower lobe pneumonia 2. Cholelithiasis without definite acute cholecystitis 3. Constipation and possible mild colonic ileus 4. Diverticulosis without evidence of diverticulitis 5. Small hiatal hernia Electronically signed by Davonte Andrade 11-02-2024 7:33 PM PG Care Time/CCT Total # of Minutes Spent Total Time Spent with Patient: Total time spent is greater than 50% in coordination of care (as documented) at patient's floor/unit and/or counseling patient: Coding Level of Care Code 97189 INT INP/OBS CARE 3/75MIN Diagnoses Constipation K59.00 Constipation type: unspecified constipation type Acute urinary retention R33.8 Pneumonia J18.9 Laterality: bilateral Lung location: lower lobe of lung Pneumonia type: due to unspecified organism Obstructive sleep apnea syndrome G47.33 Sleep apnea type: obstructive Benign essential hypertension I10 Type 2 diabetes mellitus E11.9 (1) Constipation Constipation type: unspecified constipation type Qualified Code(s): K59.00 - Constipation, unspecified (3) Pneumonia Laterality: bilateral Lung location: lower lobe of lung Pneumonia type: due to unspecified organism Qualified Code(s): J18.9 - Pneumonia, unspecified organism (4) Sleep apnea Sleep apnea type: obstructive Qualified Code(s): G47.33 - Obstructive sleep apnea (adult) (pediatric)
[2024-11-02] MEDS ORDERED: ONDANSETRON INJ 2 MG/ML 2 ML VIAL IV PRN (21:50)
[2024-11-02] MEDS ORDERED: ACETAMINOPHEN 325 MG TAB PO PRN (21:50)
[2024-11-02] MEDS ORDERED: POLYETHYLENE (MIRALAX) 17 GM PACK PO PRN (21:50)
[2024-11-02 22:07] LABS: Magnesium 2.1 mg/dl (1.7-2.4); Phosphorus 2.9 mg/dl (2.5-4.9)
[2024-11-02] MEDS: ASPIRIN 81 MG ECTAB PO SCH (22:17)
[2024-11-02] MEDS: DOXYCYCLINE HYCLATE 100 MG CAP PO SCH (22:17)
[2024-11-02] MEDS: SODIUM CHLORIDE 0.9% 1,000 ML IV SCH (22:18)
[2024-11-02] MEDS ORDERED: GLUCAGON FOR INJ 1 MG VIAL SQ PRN (22:20)
[2024-11-02] MEDS ORDERED: GLUCOSE 10 TAB/TUBE PO PRN (22:20)
[2024-11-02] MEDS ORDERED: CARBOHYDRATES FOR HYPOGLYCEMIA PO PRN (22:20)
[2024-11-02] MEDS ORDERED: GLUCOSE 40% GEL 15 GM TUBE PO PRN (22:20)
[2024-11-02] MEDS ORDERED: DEXTROSE 50% 50 ML SYRINGE IV PRN (22:20)
[2024-11-03 02:01] VITALS: RESP 16
[2024-11-03] MEDS: LEVOTHYROXINE SODIUM 75 MCG TABLET PO SCH (06:18)
[2024-11-03 07:54] VITALS: BP 112/60; PULSE 86; TEMP 97.5; O2SAT 98
[2024-11-03] MEDS: INSULIN ASPART PER UNIT CHARGE SC SCH (08:12)
[2024-11-03] MEDS: SENNA 8.6 MG TAB PO SCH (08:16)
[2024-11-03] MEDS: bisacodyL 10 MG SUPP PR SCH (08:16)
[2024-11-03] MEDS: LOSARTAN POTASSIUM 50 MG TAB PO SCH (08:17)
[2024-11-03] MEDS: guaiFENesin 600 MG TABCR PO SCH (08:17)
[2024-11-03 08:29] LABS: Hematocrit (blood only) 36.2 % (37.0-47.0); Hemoglobin 11.8 g/dl (12.0-16.0); Mean Corpuscular Hemoglobin 29.1 pg (25.0-34.0); Mean Corpuscular Hgb Conc 32.6 g/dL (32.0-36.0); Mean Corpuscular Volume 89.4 fL (80.0-100.0); Mean Platelet Volume 9.8 fL (9.4-12.4); Platelet Count 298 K/uL (130-400); RDW Coefficient of Variation 14.6 % (11.5-14.5); RDW Standard Deviation 47.4 fL (36.4-46.3); Red Blood Count 4.05 M/uL (4.20-5.40); White Blood Count 14.89 K/ul (4.8-10.8)
[2024-11-03 08:39] LABS: BUN Creatinine Ratio 20.7 (10-20); Calcium 8.4 mg/dl (8.6-10.3)
--- NOTE | 2024-11-03 15:54 | Discharge Summary ---
Discharge Summary Date of Service November 03, 2024 Principal Dx & Hospital Course #1 = Principal Diagnosis (1) Constipation: 83yo female presenting with constipation, acute urinary retention. Abdomen is soft, non-distended and non-tender, normoactive bowel sounds present. CT of the abdomen as above with constipation with possible mild colonic ileus. Patient reports she is passing gas without difficulty. Soap suds enema was administered in the ER with significant relief of her symptoms. Had a stool this AM after laxatives. Eating and drinking well now. Advised bowel regimen with miralax and senna. She will be able to increase her activity level back to baseline since she is well from her previous illness. (2) Acute urinary retention: secondary to constipation. UA with no evidence of infection. Renal function and electrolytes are WNL. had leo overnight, was removed and now spontaneously voiding (3) Pneumonia: Pneumonia ruled out she had been on Azithromycin, Augmentin and Prednisone prior to her most recent hospitalization and was discharged home on Levaquin and a steroid taper. does not endorse fever, chest pain, SOB or cough. transient hypoxia in ED resolved. high 90s room air today. she had leukocytosis which improved from 23-->15 today. probably stress demargination and recent prednisone procalcitonin was normal I do not see any evidence of active pneumonia. CT findings are radiographic sequelae of previous pulmonary infection and will take another 6 weeks to clear. (4) Sleep apnea: Chronic. Patient compliant with home CPAP -Continue CPAP qHS (5) Benign essential hypertension: normotensive -Resume Candesartan on discharge (6) Type 2 diabetes mellitus: Chronic. Overall well controlled on metformin. Last EqwP2P=8 on 10/23/24 continue usual meds Plan Chronic Medical Conditions: CAD - non-obstructive, no chest pain -Continue ASA 81mg po qHS -Continue Pravastatin 40mg po qHS Hypothyroidism - chronic, stable. Last TSH on 08/17/24 = 2.304 -Continue Synthroid 75mcg po daily Notes For Next Care Provider blood cultures from 11/02 are pending no growth to date Medication Changes From Visit bowel regimen Admission HPI Per Admitting Provider Shakira Delgado is a pleasant 83yo female presenting with abdominal discomfort, constipation and difficulty urinating. Patient with history of non-obstructive CAD, HTN, HLP, ASHLEY on CPAP and s/p TAVR with bioprosthetic valve. She was recently admitted to [facility] from 10/22/24 - 10/24/24 with acute respiratory distress and asthmatic bronchitis secondary to Rhinovirus infection. She was treated with IV steroids and inhaled bronchodilators and ultimately discharged in stable condition on 10/24/24 with a prescription for Levaquin and a steroid taper. She reports completing these medications without difficulty. Patient presents today with several days of constipation - she does not recall when her last BM was - at baseline she only has a BM every other day. Today she developed difficulty urinating and needed to stand up and push on her bladder to pass urine. She has some mild lower abdominal discomfort and nausea but no vomiting. She reports she is passing flatus without difficulty. Also with poor appetite and decreased oral intake and some generalized weakness. No report of fever, chills, rigors, sweats, dysuria, hematuria. No chest pain, palpitations or SOB. No pleuritic discomfort. She reports severe cough when she had the Rhinovirus but this has been improving and is non-productive. In the ER patient afebrile, sinus tachycardia with HR of 102. She did become briefly hypoxic with saturation of 87% and was placed on 2L NC with improvement. She does not use O2 at home. She had a bladder scan performed which showed 650mL of retained urine - Leo was placed without difficulty. ER Course: Ceftriaxone 2gm IV Discharge Exam PHYSICAL EXAMINATION Last 24h vital signs reviewed, see documentation in flowsheet General: comfortable appearing, no distress HEENT: Normocephalic, atraumatic, pupils round and equal, sclerae anicteric, no conjunctival injection, moist mucus membranes Lungs: Normal respiratory effort. Clear to auscultation bilaterally. No RRW Heart: Regular rate and rhythm, no murmurs. No JVD Abdomen: Soft, nontender, nondistended. Bowel sounds present. Leo catheter with clear light yellow urine Extremities: Warm, dry, well-perfused. No extremity edema. Neuro: Alert and oriented x 4, face symmetric, moves 4 extremities well Psych: Normal affect and behavior Discharge Plan Discharge Items Patient Disposition: Home - Self-Care Reason For Visit: PNEUMONIA, CONSTIPATION Discharge Diagnosis: constipation, acute urinary retention Condition on Discharge: Good Activity: Resume your previous activity Non-emergency contact: Primary Care Provider Call non-emergency contact if: you have any medication questions, your symptoms worsen and you have a fever Follow-up/Referrals: ProPasha MD [Primary Care Provider] - 11/06/24 10:30 am Diet: Regular Addtl Attending Provider Instructions: For constipation You probably still have a lot of stool in your colon I recommend miralax one capful daily If this isn't enough you can take 1 or 2 tabs of senna at bedtime These are available over the counter Increased fluid and fiber intake and regular exercise will also help prevent constipation Seek medical attention if you have recurrence of difficulty urinating It was a pleasure taking care of you in the hospital, Zarina Alcantara MD Pending Studies at Discharge: Yes (blood cultures from 11/02) Stand-Alone Forms: [facility] redIT, Smoking Cessation Medications and DC Order Prescriptions: New polyethylene glycol 3350 [Miralax] 17 gram Powder In Packet 17 g PO DAILY PRNQty: 0 0RF sennosides [Senokot] 8.6 mg Tablet 8.6 - 17.2 mg PO HS PRN (Reason: constipation) Qty: 0 0RF Continued candesartan 16 mg tablet See Rx Instructions .ROUTE .COMPLEX Qty: 90 3RF Dose Instruction: TAKE 1 TABLET DAILY IN THE MORNING Rx Instructions: TAKE 1 TABLET DAILY IN THE MORNING metformin 500 mg tablet 500 mg PO QAM Qty: 90 3RF Dose Instruction: TAKE 1 TABLET TWICE A DAY levothyroxine 75 mcg tablet 75 mcg PO DAILY Qty: 90 3RF (DME) Oxygen Home Liters Per Minute See Rx Instructions .ROUTE .MEDSUPPLY Qty: 1 Rx Instructions: 2 Liters prn clindamycin HCl 300 mg capsule 600 mg PO UD PRN (Reason: Prior to dental appointments) Rx Instructions: dentist appointments Caltrate 600 plus D 600 mg (1,500 mg)-800 unit Tablet,Chewable 1 tab PO BID Rx Instructions: Unable to verify OTC meds at this date/time. omega 2-zpo-zbn-fish oil [Fish Oil] 1,000 mg (120 mg-180 mg) capsule 1 cap PO AMHS Rx Instructions: Unable to verify OTC meds at this date/time. aspirin 81 mg Tablet,Delayed Release (Dr/Ec) 81 mg PO HS Rx Instructions: Unable to verify OTC meds at this date/time. mecobalamin (vitamin B12) 1,000 mcg tablet,disintegrating 1,000 mcg sublingual QAM Rx Instructions: Unable to verify OTC meds at this date/time. pravastatin 40 mg tablet 40 mg PO HS guaifenesin [Mucinex] 600 mg Tablet Extended Release 12hr 600 mg PO Q12 Qty: 6 0RF Discharge Orders: Discharge Order (Routine); Ordered 11/03/24 Ordered By: Zarina Jaimes/Other Patient Handouts: Preventing Pneumonia Admission Data Admit Date/Time: 11/02/24 21:17 Attending Provider: Zarina Alcantara Admit Provider: Jaylene Aviles Primary Care Provider: Pasha Rushing Other Providers: Jaylene Aviles Other Interventions: Discharge Summary Assessment (RN) Last Done: 11/03/24 12:37 Hospital Stay Data Consultations 11/02/24 20:32 ED Decision to Admit Stat Diagnostic Imagining Performed 11/02/24 17:49 CT abd pelvis IV con only Stat Pending Results Patient Have Any Pending Studies at Discharge: Yes (blood cultures from 11/02) Discharge Instructions Given to Patient (Per Discharging Provider) For constipation You probably still have a lot of stool in your colon I recommend miralax one capful daily If this isn't enough you can take 1 or 2 tabs of senna at bedtime These are available over the counter Increased fluid and fiber intake and regular exercise will also help prevent constipation Seek medical attention if you have recurrence of difficulty urinating It was a pleasure taking care of you in the hospital, Zarina Alcantara MD Total Time Total Time Spent Total Time Spent (In Minutes): less than 30 minutes Coding Level of Care Code 55171 IN/OBS DISCH 30 MIN/LESS Diagnoses Constipation K59.00 Constipation type: unspecified constipation type Acute urinary retention R33.8 Pneumonia J18.9 Laterality: bilateral Lung location: lower lobe of lung Pneumonia type: due to unspecified organism Obstructive sleep apnea syndrome G47.33 Sleep apnea type: obstructive Benign essential hypertension I10 Type 2 diabetes mellitus E11.9
[2024-11-03] MEDS ORDERED: PRAVASTATIN SOD 40 MG TAB PO SCH (21:00)
[2024-11-03] MEDS ORDERED: cefTRIAXone SODIUM 1,000 MG/50 ML BAG IV SCH (21:00)
== END 2024-11-03 13:11 | disposition home or self-care (01) ==
LOC: EDINP 16:45 → ED 16:45 → SUATTDRO 21:17 → 3W 21:49